=== PATIENT | female | born 1960 | race Caucasian/White ===

== ENCOUNTER 2016-08-28 07:30 | Inpatient (IN) | payer BC ==
[~2016-08-28 07:30] MED LIST: Acetaminophen/oxyCODONE 325-5 MG Tab PO PRN; Bisacodyl 5 MG Tab PO PRN; Lidocaine 1%/Sod Bicarbonate in NS 8.4% 1 ML Syringe IV PRN; Ondansetron 4 MG/2 ML SDV IVPUSH PRN; Sodium Chloride 0.9% 10 ML Syringe FLUSH PRN
[2016-08-28] MEDS ORDERED: Ropivacaine 0.5% 5 MG/ML 30 ML SDV ONE (11:15)
[2016-08-28] MEDS ORDERED: Lidocaine 1% 2 ML ONE (11:15)
[2016-08-28] MEDS ORDERED: EPINEPHrine 1:1000 1 MG/ML SDV ONE (11:15)
[2016-08-28] MEDS: Lactated Ringers 1,000 ML IV SCH ×2 (12:15→14:50)
[2016-08-28] MEDS ORDERED: Citric Acid/Sodium Citrate Solution 30 ML Cup PO ONE (12:17)
[2016-08-28] MEDS ORDERED: Vancomycin 1 GM SDV ONE (12:49)
[2016-08-28] MEDS ORDERED: Midazolam 1 MG/ML 2 ML SDV ONE ×2 (12:57→14:46)
[2016-08-28] MEDS ORDERED: Propofol 200 MG/20 ML SDV ONE (12:57)
[2016-08-28] MEDS ORDERED: fentaNYL 100 MCG/2 ML SDV ONE ×3 (12:57→16:52)
--- NOTE | 2016-08-28 12:57 | PCM.PREANE ---
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 OB/BYN History: Vaginal delivery x 2 Musculoskeletal History: Reports: None Neurological History: Reports: Vertigo (vestibular) Psychiatric History: Reports: None Endocrine/Metabolic History: Reports: None Hematologic History: Reports: None Immunologic History: Reports: None Oncologic (Cancer) History: Reports: None Dermatologic History: Reports: None - Infectious Disease History Infectious Disease History: Reports: None - Past Surgical History HEENT Surgical History: Reports: Other (see below) Other HEENT Surgeries/Procedures: [place] teeth extraction Cardiovascular Surgical History: Reports: None Respiratory Surgical History: Reports: None GI Surgical History: Reports: None Female Surgical History: Reports: None Endocrine Surgical History: Reports: None Neurological Surgical History: Reports: None Musculoskeletal Surgical History: Reports: None Oncologic Surgical History: Reports: None - SUBSTANCE USE Smoking Status *Q: Former Smoker (0.5ppd 30 years) Tobacco Use Within Last Twelve Months: Cigarettes (quit 6 weeks ago) Second Hand Smoke Exposure: No Days Per Week of Alcohol Use: 0 Recreational Drug Use History: No - HOME MEDS Home Medications: Home Meds Multivitamin [Multivitamins] 1 tab PO DAILY 09/18/15 [History] Cholecalciferol (Vitamin D3) [Vitamin D3] 2,000 unit PO DAILY 08/25/16 [History] L.acidoph,Paracasei, B.lactis [Probiotic] 1 tab PO 08/25/16 [History] Vitamin B Complex [B Complex] 1 tab PO DAILY 08/25/16 [History] - CURRENT (IN HOUSE) MEDS Current Meds: Current Medications Aspirin (Ecotrin) 325 mg PO DAILY [facility] Bisacodyl (Dulcolax) 5 mg PO DAILY PRN PRN Reason: Constipation Docusate Sodium (Colace) 100 mg PO BID [facility] Famotidine (Pepcid) 20 mg IVPUSH Q12H [facility] [place] Lactated Ringer's (Ringers, Lactated) 1,000 mls @ 125 mls/hr IV ASDIRECTED [facility] [place] Last Admin: 08/28/16 12:15 Dose: 125 mls/hr Lidocaine/Sodium Bicarbonate (Buffered Lidocaine 1% In Ns 8.4%) 0.25 ml IV ONETIME PRN PRN Reason: Prior to IV Start Last Admin: 08/28/16 12:14 Dose: 0.25 ml Magnesium Hydroxide (Milk Of Magnesia) 30 ml PO BID PRN PRN Reason: Constipation Morphine Sulfate (Morphine) 2 mg IVPUSH Q2H PRN PRN Reason: Breakthrough Pain Multivitamins (Thera) 1 each PO WITHBREAKFAST [facility] [place] Naloxone HCl (Narcan) 0.1 mg IVPUSH Q5M PRN PRN Reason: Oversedation Stop: 08/28/16 15:16 Ondansetron HCl (Zofran) 4 mg IVPUSH Q6H PRN PRN Reason: Nausea/Vomiting Oxycodone/Acetaminophen (Percocet 325-5 Mg) 1 - 2 tab PO Q4H PRN PRN Reason: Pain Senna (Senna) 8.6 mg PO BID PRN PRN Reason: Constipation Sodium Chloride (Saline Flush) 10 ml FLUSH ASDIRECTED PRN PRN Reason: Keep Vein Open Discontinued Medications Citric Acid/Sodium Citrate (Bicitra Solution) 30 ml PO ONETIME ONE Stop: 08/28/16 12:18 Last Admin: 08/28/16 12:32 Dose: 30 ml Epinephrine HCl (Adrenalin 1:1000) Confirm Administered Dose 1 mg .ROUTE .STK- MED ONE Stop: 08/28/16 11:16 Lidocaine HCl (Xylocaine-Mpf 1%) Confirm Administered Dose 2 mls @ as directed .ROUTE .STK-MED ONE Stop: 08/28/16 11:16 Ropivacaine (Naropin 0.5%) Confirm Administered Dose 30 ml .ROUTE .STK-MED ONE Stop: 08/28/16 11:16 Preanesthetic Assessment - ANESTHESIA/TRANSFUSION/FAMILY HX Anesthesia/Transfusion History: No Prior Transfusion(s), Prior Anesthesia ( wisdom teeth extraction ) Type of Anesthesia Reaction: Reports: Unknown Family History of Anesthesia Reaction: Yes Intubation History: Unknown Type of Transfusion Reactions: Reports: Unknown - REVIEW OF SYSTEMS Constitutional: Reports: no symptoms (seasonal sinus allergies ) 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 symptoms (vertibular vertigo ) Respiratory: Reports: shortness of breath (due to allergies ) Cardiovascular: Reports: no symptoms GI: Reports: no symptoms (GERD), nausea (throughout the last year correlated with acid reflux) Other: Reports: None, Depression (not currently medicated ), Anxiety - PHYSICAL ASSESSMENT HR: 71 O2 Sat by Pulse Oximetry: 94 RR: 16 BP: 118/82 Temp: 36.8 C Height: 1.55 m Weight: 81.647 kg NPO Status Date: 08/27/16 NPO Status Time: 20:00 ASA Class: 2 Mental Status: Alert & Oriented x3 Airway Class: Mallampati = 2 Dentition: Reports: Normal Dentition Thyro-Mental Finger Breadths: 3 Mouth Opening Finger Breadths: 3 ROM/Head Extension: Limited/Partial (due to vestibular vertigo issues) Respiratory Status: lungs clear to auscultation bilaterally Cardiovascular Status: regular rate & rhythm, normal S1, S2, no murmur, blood pressure WNL - ALLERGIES Allergies/Adverse Reactions: Allergies Allergy/AdvReac Type Severity Reaction Status Date / Time latex Allergy Other Verified 08/25/16 12:46 Penicillins Allergy Rash Verified 08/25/16 12:46 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
[2016-08-28] MEDS ORDERED: Lidocaine 1% 4 ML ONE (12:58)
[2016-08-28] MEDS ORDERED: Rocuronium 50 MG/5 ML Vial ONE (12:58)
[2016-08-28] MEDS ORDERED: Dexamethasone 4 MG/ML SDV ONE (12:58)
[2016-08-28] MEDS ORDERED: Ondansetron 4 MG/2 ML SDV ONE (12:58)
[2016-08-28] MEDS ORDERED: ceFAZolin 1 GM Vial ONE (13:28)
[2016-08-28] MEDS ORDERED: Scopolamine 1.5 MG Transdermal Patch TRDERM ONE (13:31)
[2016-08-28] MEDS ORDERED: Naloxone 0.4 MG/ML SDV IVPUSH PRN (15:00)
--- NOTE | 2016-08-28 15:13 | PCM.SN ---
- Free Text/Narrative Note: Date: 08/28/2016 Time Out: 1410 Start: 1410 Stop: 1442 Surgical Procedure: Left Total Shoulder Arthroplasty, vs, Left Reverse Total Shoulder Arthroplasty Diagnosis: Left shoulder Osteoarthritis Current Procedure: Left Interscalene Block under US guidance for postoperative pain control requested by Dr. Pozo. Patient chart reviewed, risk/benefits discussed with patient, consent obtained. Patient positioned supine, monitors/alarms on, oxygen placed via nasal cannula at 2LPM. IV sedation administered: Versed 2mg IV @ 1340, 1mg versed at 1437. Fentanyl 50mcg IV @ 1410, 1432, 1438. Left shoulder prepped with two chloropreps. Sterile drapes placed with aseptic technique noted. Under US guidance(sterile US sleeve noted) left subclavian artery visualized along with the left brachial plexus. Plexus followed up to cricoid level, and area localized with 2mls of 1% lidocaine. 22gauge 2 inch stimiplex needle advanced under US with 0.8mV with stimulation of left forearm noted. Voltage turned down to 0.4mV with stimulation noted. 1ml of Normal Saline injected with loss of stimulation noted to confirm needle not placed intraneurally. Incremental dosing of 5mls with negative aspiration noted prior to each injection of 0.5% ropivacaine with 1:200,000 epinephrine. Total volume=30mls. QV9099/1440: 71, 64 NW6017/1440: 125/89, 117/67 1442: 95/59, 80, 16, 96% RR: 1410/1440: 16, 11 SPO2:1410/1440:100%, 98% Patient tolerated procedure well.
[2016-08-28] MEDS ORDERED: LORazepam 2 MG/ML MDV IVPUSH ONE (15:40)
[2016-08-28] MEDS ORDERED: Meperidine PF 50 MG/ML Syringe IVPUSH PRN (15:41)
[2016-08-28] MEDS ORDERED: Ondansetron 4 MG/2 ML SDV IVPUSH PRN (15:41)
[2016-08-28] MEDS ORDERED: fentaNYL 100 MCG/2 ML SDV IVPUSH PRN (15:41)
[2016-08-28] MEDS ORDERED: diphenhydrAMINE 50 MG/ML SDV IVPUSH PRN (15:41)
[2016-08-28] MEDS ORDERED: Phenylephrine/Normal Saline 100 MCG/ML 10 ML Syringe ONE ×2 (17:29→18:45)
[2016-08-28] MEDS ORDERED: Neostigmine Methylsulfate 1 MG/ML 5 ML Syringe ONE (17:29)
[2016-08-28] MEDS ORDERED: ePHEDrine/Normal Saline 25 MG/5 ML Syringe ONE ×2 (17:29→18:11)
[2016-08-28] MEDS: Bupivacaine 0.25% 30 ML SDV ONE ×2 (17:45→19:00)
[2016-08-28] MEDS: ceFAZolin 1 GM Vial ONE ×2 (17:45→18:46)
[2016-08-28] MEDS: Iodine/Sodium Iodide 2% Tincture 30 ML Bottle ONE ×2 (17:46→18:45)
[2016-08-28] MEDS ORDERED: Ketamine 500 mg/10 ML MDV ONE (17:55)
[2016-08-28] MEDS ORDERED: Lactated Ringers 1,000 ML ONE ×2 (18:30)
--- NOTE | 2016-08-28 19:51 | PCM.POSTAN ---
POST ANESTHESIA ASSESSMENT - MENTAL STATUS Mental Status: other (drowsy ) - VITAL SIGNS Pulse Rate: 93 SaO2: 95 Resp Rate: 13 Blood Pressure: 139/77 Temperature: 36.8 C - RESPIRATORY Respiratory Status: respiratory rate WNL, airway patent, O2 saturation stable - CARDIOVASCULAR CV Status: pulse rate WNL, blood pressure stable - GASTROINTESTINAL GI Status: no symptoms - PAIN Pain Score: 0 - POST OP HYDRATION Hydration Status: adequate & stable (uneventful GA with interscalene block for postoperative pain control )
--- NOTE | 2016-08-28 20:36 | CR ---
Left shoulder: Portable view of the left shoulder was obtained in AP projection. Comparison: Previous operative study performed earlier on the same day. Left shoulder prosthesis is seen. Components are aligned. Underlying bony structures appear intact. Soft tissue air is noted from the surgical procedure. Impression: 1. Satisfactory postop radiographic appearance of recently placed left shoulder prosthesis. Diagnostic code #2
[2016-08-28] MEDS ORDERED: Magnesium Hydroxide 400 MG/5 ML Susp 30 ML Cup PO PRN (21:00)
[2016-08-28] MEDS ORDERED: Sennosides 8.6 MG Tab PO PRN (21:00)
[2016-08-28] MEDS ORDERED: Famotidine 20 MG/2 ML SDV IVPUSH SCH (21:00)
[2016-08-28] MEDS ORDERED: Pneumococcal Polyvalent-23 Vaccine 0.5 ML SDV IM ONE (21:49)
[2016-08-29] MEDS: Docusate Sodium 100 MG Cap PO SCH ×2 (01:35→08:35)
[2016-08-29] MEDS: Morphine 2 MG/ML Syringe IVPUSH PRN ×3 (02:35→10:53)
[2016-08-29] MEDS: ceFAZolin 2 GM in Premix Bag 1 BAG IV SCH ×2 (02:35→09:55)
[2016-08-29] MEDS ORDERED: Cyclobenzaprine 10 MG Tab PO PRN (05:07)
[2016-08-29] MEDS: Pantoprazole 40 MG Tab.CR PO SCH ×2 (05:52→06:46)
[2016-08-29] MEDS: oxyCODONE 5 MG Tab PO PRN ×2 (05:52→16:04)
[2016-08-29] MEDS ORDERED: Multivitamins,Therapeutic Tab PO SCH (07:00)
--- NOTE | 2016-08-29 07:09 | PCM.CONSN ---
- General Info Date of Service: 08/29/16 Admission Dx/Problem (Free Text): S/P Lt total shoulder with Dr. Pozo Pain control better after switching to dilaudid po from percocet po; no n/v Hgb 12.3 today, other labs stable VSS Plans dc home today Functional Status: Reports: pain controlled, tolerating diet, ambulating, urinating. Denies: new symptoms - Review of Systems General: Reports: No Symptoms HEENT: Reports: no symptoms Pulmonary: Reports: no symptoms Cardiovascular: Reports: No Symptoms Gastrointestinal: Reports: No symptoms Genitourinary: Reports: no symptoms Musculoskeletal: Reports: shoulder pain Skin: Reports: no symptoms Neurological: Reports: No Symptoms Psychiatric: Reports: no symptoms - Patient Data Vitals - most recent: Last Vital Signs Temp 97.7 F 08/29/16 03:59 Pulse 75 08/29/16 03:59 Resp 16 08/29/16 03:59 BP 105/86 08/29/16 03:59 Pulse Ox 98 08/29/16 03:59 Weight - most recent: 166 lb 11.2 oz I&O - last 24 hours: Intake & Output 08/28/16 08/29/16 08/29/16 22:59 06:59 14:59 Intake Total 400 500 Output Total 1250 Balance 400 -750 Lab Results last 24 hrs: Laboratory Results - last 24 hr 08/29/16 08/29/16 Range/Units 06:14 06:14 WBC 9.97 (3.98-10.04) K/mm3 RBC 4.17 (3.98-5.22) M/mm3 Hgb 12.3 (11.2-15.7) gm/L Hct 37.5 (34.1-44.9) % MCV 89.9 (79.4-94.8) fl MCH 29.5 (25.6-32.2) pg MCHC 32.8 (32.2-35.5) g/dl RDW Std Deviation 44.5 (36.4-46.3) fL Plt Count 152 L (182-369) K/mm3 MPV 11.0 (9.4-12.3) fl Neut % (Auto) 72.7 H (34.0-71.1) % Lymph % (Auto) 15.2 L (19.3-51.7) % [place] % (Auto) 9.2 (4.7-12.5) % Eos % (Auto) 2.5 (0.7-5.8) Baso % (Auto) 0.1 (0.1-1.2) % Neut # (Auto) 7.24 H (1.56-6.13) K/mm3 Lymph # (Auto) 1.52 (1.18-3.74) K/mm3 [place] # (Auto) 0.92 H (0.24-0.36) K/mm3 Eos # (Auto) 0.25 (0.04-0.36) K/mm3 Baso # (Auto) 0.01 (0.01-0.08) K/mm3 Sodium 140 (136-145) mEq/L Potassium 4.5 (3.5-5.1) mEq/L Chloride 106 (98-107) mEq/L Carbon Dioxide 27 (21-32) mEq/L Anion Gap 11.5 (5-15) BUN 10 (7-18) mg/dL Creatinine 0.9 (0.55-1.02) mg/dL Est Cr Clr Drug Dosing 52.04 mL/min Estimated GFR (MDRD) > 60 (>60) mL/min BUN/Creatinine Ratio 11.1 L (14-18) Glucose 136 H (74-106) mg/dL Calcium 8.7 (8.5-10.1) mg/dL Total Bilirubin 0.3 (0.2-1.0) mg/dL AST 23 (15-37) U/L ALT 27 (14-59) U/L Alkaline Phosphatase 85 (46-116) U/L Total Protein 6.5 (6.4-8.2) g/dl Albumin 3.3 L (3.4-5.0) g/dl Globulin 3.2 gm/dL Albumin/Globulin Ratio 1.0 (1-2) Med Orders - Current: Current Medications Aspirin (Ecotrin) 325 mg PO DAILY [facility] Bisacodyl (Dulcolax) 5 mg PO DAILY PRN PRN Reason: Constipation Cholecalciferol (Vitamin D3) 2,000 units PO DAILY [facility] Cyclobenzaprine HCl (Flexeril) 10 mg PO Q8HR PRN PRN Reason: Spasms Last Admin: 08/29/16 05:52 Dose: 10 mg Docusate Sodium (Colace) 100 mg PO BID [facility] Last Admin: 08/29/16 01:35 Dose: Not Given Famotidine (Pepcid) 20 mg IVPUSH Q12H [facility] Last Admin: 08/28/16 22:32 Dose: 20 mg Cefazolin Sodium/Dextrose 2 gm (/ Premix) 50 mls @ 100 mls/hr IV Q8H [facility] Stop: 08/29/16 18:29 Last Admin: 08/29/16 02:35 Dose: 100 mls/hr Magnesium Hydroxide (Milk Of Magnesia) 30 ml PO BID PRN PRN Reason: Constipation Morphine Sulfate (Morphine) 2 mg IVPUSH Q2H PRN PRN Reason: Breakthrough Pain Last Admin: 08/29/16 04:32 Dose: 2 mg Ondansetron HCl (Zofran) 4 mg IVPUSH Q6H PRN PRN Reason: Nausea/Vomiting Oxycodone HCl (Oxycodone) 5 mg PO Q6H PRN PRN Reason: Pain Last Admin: 08/29/16 05:52 Dose: 5 mg Oxycodone/Acetaminophen (Percocet 325-5 Mg) 1 - 2 tab PO Q4H PRN PRN Reason: Pain Last Admin: 08/29/16 03:06 Dose: 2 tab Pantoprazole Sodium (Protonix) 40 mg PO DAILY@0700 [facility] Last Admin: 08/29/16 06:46 Dose: Not Given Saccharomyces Boulardii (Florastor) 250 mg PO DAILY [facility] Senna (Senna) 8.6 mg PO BID PRN PRN Reason: Constipation Vitamin B Complex/Vitamin C (Super B With Vitamin C) 1 cap PO DAILY [facility] Discontinued Medications Bupivacaine HCl (Marcaine 0.25%) Confirm Administered Dose 30 ml .ROUTE .STK- MED ONE Stop: 08/28/16 12:51 Last Admin: 08/28/16 19:00 Dose: 20 ml Cefazolin Sodium (Ancef) Confirm Administered Dose 2 gm .ROUTE .STK-MED ONE Stop: 08/28/16 12:51 Last Admin: 08/28/16 18:46 Dose: 2 gm Cefazolin Sodium (Ancef) Confirm Administered Dose 2 gm .ROUTE .STK-MED ONE Stop: 08/28/16 13:29 Citric Acid/Sodium Citrate (Bicitra Solution) 30 ml PO ONETIME ONE Stop: 08/28/16 12:18 Last Admin: 08/28/16 12:32 Dose: 30 ml Dexamethasone (Dexamethasone) Confirm Administered Dose 4 mg .ROUTE .STK-MED ONE Stop: 08/28/16 12:59 Diphenhydramine HCl (Benadryl) 25 mg IVPUSH Q6H PRN PRN Reason: pruritis Stop: 08/28/16 18:00 Ephedrine Sulfate (Ephedrine In Ns) Confirm Administered Dose 25 mg .ROUTE .STK- MED ONE Stop: 08/28/16 17:30 Ephedrine Sulfate (Ephedrine In Ns) Confirm Administered Dose 25 mg .ROUTE .STK- MED ONE Stop: 08/28/16 18:12 Epinephrine HCl (Adrenalin 1:1000) Confirm Administered Dose 1 mg .ROUTE .STK- MED ONE Stop: 08/28/16 11:16 Fentanyl (Sublimaze) Confirm Administered Dose 100 mcg .ROUTE .STK-MED ONE Stop: 08/28/16 12:58 Fentanyl (Sublimaze) Confirm Administered Dose 100 mcg .ROUTE .STK-MED ONE Stop: 08/28/16 14:47 Fentanyl (Sublimaze) 50 mcg IVPUSH Q5M PRN PRN Reason: Pain Stop: 08/28/16 18:00 Fentanyl (Sublimaze) Confirm Administered Dose 100 mcg .ROUTE .STK-MED ONE Stop: 08/28/16 16:53 Glycopyrrolate () Confirm Administered Dose 1 mg .ROUTE .STK-MED ONE Stop: 08/28/16 17:30 Lactated Ringer's (Ringers, Lactated) 1,000 mls @ 125 mls/hr IV ASDIRECTED [facility] Stop: 08/28/16 23:00 Last Admin: 08/28/16 14:50 Dose: 125 mls/hr Lidocaine HCl (Xylocaine-Mpf 1%) Confirm Administered Dose 2 mls @ as directed .ROUTE .STK-MED ONE Stop: 08/28/16 11:16 Lidocaine HCl (Xylocaine-Mpf 1%) Confirm Administered Dose 4 mls @ as directed .ROUTE .STK-MED ONE Stop: 08/28/16 12:59 Lactated Ringer's (Ringers, Lactated) Confirm Administered Dose 1,000 mls @ as directed .ROUTE .STK-MED ONE Stop: 08/28/16 18:31 Lactated Ringer's (Ringers, Lactated) Confirm Administered Dose 1,000 mls @ as directed .ROUTE .STK-MED ONE Stop: 08/28/16 18:31 Iodine (Iodine 2% Mild Tincture) Confirm Administered Dose 30 ml .ROUTE .STK- MED ONE Stop: 08/28/16 12:51 Last Admin: 08/28/16 18:45 Dose: 18 ml Ketamine HCl (Ketalar) Confirm Administered Dose 500 mg .ROUTE .STK-MED ONE Stop: 08/28/16 17:56 Lidocaine/Sodium Bicarbonate (Buffered Lidocaine 1% In Ns 8.4%) 0.25 ml IV ONETIME PRN PRN Reason: Prior to IV Start Stop: 08/28/16 18:00 Last Admin: 08/28/16 12:14 Dose: 0.25 ml Lorazepam (Ativan) 1 mg IVPUSH ONETIME ONE Stop: 08/28/16 15:41 Last Admin: 08/28/16 22:50 Dose: Not Given Meperidine HCl (Demerol) 12.5 mg IVPUSH ONETIME PRN PRN Reason: shivering Stop: 08/28/16 18:00 Midazolam HCl (Versed 1 Mg/Ml) Confirm Administered Dose 2 mg .ROUTE .STK-MED ONE Stop: 08/28/16 12:58 Midazolam HCl (Versed 1 Mg/Ml) Confirm Administered Dose 2 mg .ROUTE .STK-MED ONE Stop: 08/28/16 14:47 Multivitamins (Thera) 1 each PO WITHBREAKFAST [facility] Naloxone HCl (Narcan) 0.1 mg IVPUSH Q5M PRN PRN Reason: Oversedation Stop: 08/28/16 15:16 Neostigmine Methylsulfate (Neostigmine) Confirm Administered Dose 5 mg .ROUTE .STK-MED ONE Stop: 08/28/16 17:30 Non-Formulary Medication (Multivitamin [Multivitamins]) 1 tab PO DAILY [facility] Ondansetron HCl (Zofran) Confirm Administered Dose 4 mg .ROUTE .STK-MED ONE Stop: 08/28/16 12:59 Ondansetron HCl (Zofran) 4 mg IVPUSH ONETIME PRN PRN Reason: Nausea/Vomiting Stop: 08/28/16 18:00 Last Admin: 08/28/16 20:01 Dose: 4 mg Phenylephrine HCl (Phenylephrine In Ns 100 Mcg/Ml) Confirm Administered Dose 1 mg .ROUTE .STK-MED ONE Stop: 08/28/16 17:30 Phenylephrine HCl (Phenylephrine In Ns 100 Mcg/Ml) Confirm Administered Dose 1 mg .ROUTE .STK-MED ONE Stop: 08/28/16 18:46 Pneumococcal Polyvalent Vaccine (Pneumovax 23) 0.5 ml IM .ONCE ONE Stop: 08/28/16 21:50 Propofol (Diprivan 20 Ml) Confirm Administered Dose 200 mg .ROUTE .STK-MED ONE Stop: 08/28/16 12:58 Rocuronium [place] (Zemuron) Confirm Administered Dose 50 mg .ROUTE .STK-MED ONE Stop: 08/28/16 12:59 Ropivacaine (Naropin 0.5%) Confirm Administered Dose 30 ml .ROUTE .STK-MED ONE Stop: 08/28/16 11:16 Scopolamine (Transderm-Scop) 1.5 mg TRDERM ONETIME ONE Stop: 08/28/16 13:32 Last Admin: 08/28/16 14:59 Dose: 1.5 mg Sodium Chloride (Saline Flush) 10 ml FLUSH ASDIRECTED PRN PRN Reason: Keep Vein Open Stop: 08/28/16 18:00 Tranexamic Acid (Cyklokapron) Confirm Administered Dose 1,000 mg .ROUTE .STK- MED ONE Stop: 08/28/16 12:50 Last Admin: 08/28/16 19:05 Dose: 1,000 mg Vancomycin HCl (Vancomycin) Confirm Administered Dose 1 gm .ROUTE .STK-MED ONE Stop: 08/28/16 12:50 - Exam Quality Assessment: DVT prophylaxis General: alert, oriented, cooperative, no acute distress HEENT: Pupils equal, Pupils reactive, EOMI, Mucous membr. moist/pink Neck: supple Lungs: Clear to auscultation, Normal respiratory effort Cardiovascular: Regular Rate, Regular Rhythm Abdomen: bowel sounds present, soft, no tenderness, no distension (Female) Exam: Deferred Extremities: no edema Peripheral Pulses: 2+: radial (L), radial (R) Skin: warm, dry Neurological: no new focal deficit Psy/Mental Status: alert, normal affect, normal mood Consult PN Assessment/Plan POD#: 1 Procedures: Procedures ASSAY OF AMYLASE (09/18/15) ASSAY OF LIPASE (09/18/15) ASSAY OF TROPONIN QUANT (09/18/15) COMPLETE CBC W/AUTO DIFF WBC (09/18/15) COMPREHEN METABOLIC PANEL (09/18/15) DXA BONE DENSITY AXIAL (06/22/16) EMERGENCY DEPT VISIT (09/18/15) HYDRATE IV INFUSION ADD-ON (09/18/15) MR-STAPH DNA AMP PROBE (08/14/16) ROUTINE VENIPUNCTURE (09/18/15) THER/PROPH/DIAG INJ IV PUSH (09/18/15) TX/PRO/DX INJ NEW DRUG ADDON (09/18/15) TX/PRO/DX INJ SAME DRUG PROPERTY PORTFOLIO OFFICER (09/18/15) URINALYSIS AUTO W/SCOPE (11/03/14) URINE CULTURE/COLONY COUNT (10/27/14) X-RAY EXAM L-S SPINE 2/3 VWS (11/03/14) X-RAY EXAM OF ABDOMEN (09/18/15) (1) Status post total shoulder arthroplasty SNOMED Code(s): 632764582, 388383456 Code(s): Z96.619 - PRESENCE OF UNSPECIFIED ARTIFICIAL SHOULDER JOINT Priority: High Current Visit: Yes Qualifiers: Laterality: left Qualified Code(s): Z96.612 - Presence of left artificial shoulder joint (2) Osteoarthritis SNOMED Code(s): 453599904 Code(s): M19.90 - UNSPECIFIED OSTEOARTHRITIS, UNSPECIFIED SITE Priority: High Current Visit: Yes Qualifiers: Osteoarthritis location: shoulder Osteoarthritis type: primary Laterality : left Qualified Code(s): M19.012 - Primary osteoarthritis, left shoulder Problem List Initiated/Reviewed/Updated: Yes Plan: POD #1 Lt Total Shoulder Arthroplasty -Pain managment and DVT prophylax per primary team/Ortho -PT/OT -Doing well thus far -Hgb 12.3 this am Other chronic conditions: Hx GERD and Vertigo- home meds of vitamins only- can continue these at home GI prophylax Plans for DC home today; ok from Hospitalist standpoint for dc home today.
[2016-08-29] MEDS ORDERED: HYDROmorphone 2 MG Tab PO ONE (07:30)
[2016-08-29] MEDS ORDERED: Diphtheria,Pertussis(Acell),Tetanus Vaccine 0.5 ML SDV inactive IM ONE (07:55)
[2016-08-29] MEDS ORDERED: Non-Formulary Medication 1 Each (Multivitamin [Multivitamins] 1 TAB) PO SCH (09:00)
[2016-08-29] MEDS ORDERED: Vitamin B Complex With Vitamin C Cap PO SCH (09:00)
[2016-08-29] MEDS ORDERED: Saccharomyces Boulardii (Probiotic) 250 MG Cap PO SCH (09:00)
[2016-08-29] MEDS ORDERED: Cholecalciferol (Vitamin D3) 1,000 Unit Tab PO SCH (09:00)
[2016-08-29] MEDS ORDERED: Aspirin 325 MG Tab.EC PO SCH (09:00)
--- NOTE | 2016-08-29 09:35 | PCM48HPAN ---
Post Anesthesia Note - EVALUATION WITHIN 48HRS OF ANESTHETIC Vital Signs in Normal Range: Yes Patient Participated in Evaluation: Yes Respiratory Function Stable: Yes Airway Patent: Yes Cardiovascular Function Stable: Yes Hydration Status Stable: Yes Pain Control Satisfactory: No (Pt reports block worked well. (con't below)) Nausea and Vomiting Control Satisfactory: Yes Mental Status Recovered: Yes - COMMENTS/OBSERVATIONS Free Text/Narrative:: pt reports that post-op pain regimen after block wore off was inadequate, but new regimen started this am. no fever,chills, nausea, vomiting. reports taking po well, using restroom without problems
--- NOTE | 2016-08-29 10:00 | CR ---
Left shoulder: Multiple fluoroscopic spot views were obtained utilizing C-arm device. Study shows placement of left shoulder prosthesis. Final film shows normal alignment of the prosthesis. Underlying bony structures are intact. Fluoroscopy time given as 7.3 seconds. Impression: 1. Operative study showing left shoulder prosthesis placement. Diagnostic code #2
[2016-08-29] MEDS ORDERED: HYDROmorphone 2 MG Tab PO PRN (12:23)
--- NOTE | 2016-08-29 13:24 | PCM.SURGPN ---
- General Info Date of Service: 08/29/16 POD#: 1 Functional Status: Reports: pain controlled, tolerating diet, ambulating, urinating, other (The pt reports improved pain control with Dilaudid.). Denies : new symptoms - Review of Systems Musculoskeletal: Reports: other (The pt feels prepared for discharge.) - Patient Data Vitals - most recent: Last Vital Signs Temp 98.1 F 08/29/16 12:25 Pulse 77 08/29/16 12:25 Resp 16 08/29/16 12:25 BP 101/74 08/29/16 12:25 Pulse Ox 93 L 08/29/16 12:25 Weight - most recent: 166 lb 11.2 oz I&O - last 24 hours: Intake & Output 08/28/16 08/29/16 08/29/16 22:59 06:59 14:59 Intake Total 400 500 Output Total 1250 Balance 400 -750 Lab Results last 24 hrs: Laboratory Results - last 24 hr 08/29/16 08/29/16 Range/Units 06:14 06:14 WBC 9.97 (3.98-10.04) K/mm3 RBC 4.17 (3.98-5.22) M/mm3 Hgb 12.3 (11.2-15.7) gm/L Hct 37.5 (34.1-44.9) % MCV 89.9 (79.4-94.8) fl MCH 29.5 (25.6-32.2) pg MCHC 32.8 (32.2-35.5) g/dl RDW Std Deviation 44.5 (36.4-46.3) fL Plt Count 152 L (182-369) K/mm3 MPV 11.0 (9.4-12.3) fl Neut % (Auto) 72.7 H (34.0-71.1) % Lymph % (Auto) 15.2 L (19.3-51.7) % Wolfe % (Auto) 9.2 (4.7-12.5) % Eos % (Auto) 2.5 (0.7-5.8) Baso % (Auto) 0.1 (0.1-1.2) % Neut # (Auto) 7.24 H (1.56-6.13) K/mm3 Lymph # (Auto) 1.52 (1.18-3.74) K/mm3 Wolfe # (Auto) 0.92 H (0.24-0.36) K/mm3 Eos # (Auto) 0.25 (0.04-0.36) K/mm3 Baso # (Auto) 0.01 (0.01-0.08) K/mm3 Sodium 140 (136-145) mEq/L Potassium 4.5 (3.5-5.1) mEq/L Chloride 106 (98-107) mEq/L Carbon Dioxide 27 (21-32) mEq/L Anion Gap 11.5 (5-15) BUN 10 (7-18) mg/dL Creatinine 0.9 (0.55-1.02) mg/dL Est Cr Clr Drug Dosing 52.04 mL/min Estimated GFR (MDRD) > 60 (>60) mL/min BUN/Creatinine Ratio 11.1 L (14-18) Glucose 136 H (74-106) mg/dL Calcium 8.7 (8.5-10.1) mg/dL Total Bilirubin 0.3 (0.2-1.0) mg/dL AST 23 (15-37) U/L ALT 27 (14-59) U/L Alkaline Phosphatase 85 (46-116) U/L Total Protein 6.5 (6.4-8.2) g/dl Albumin 3.3 L (3.4-5.0) g/dl Globulin 3.2 gm/dL Albumin/Globulin Ratio 1.0 (1-2) Med Orders - Current: Current Medications Aspirin (Ecotrin) 325 mg PO DAILY [facility] Last Admin: 08/29/16 08:35 Dose: 325 mg Bisacodyl (Dulcolax) 5 mg PO DAILY PRN PRN Reason: Constipation Cholecalciferol (Vitamin D3) 2,000 units PO DAILY [facility] Last Admin: 08/29/16 08:35 Dose: 2,000 units Cyclobenzaprine HCl (Flexeril) 10 mg PO Q8HR PRN PRN Reason: Spasms Last Admin: 08/29/16 05:52 Dose: 10 mg Docusate Sodium (Colace) 100 mg PO BID [facility] Last Admin: 08/29/16 08:35 Dose: 100 mg Hydromorphone HCl (Dilaudid) 2 - 4 mg PO Q4H PRN PRN Reason: Pain (severe 7-10) Last Admin: 08/29/16 12:55 Dose: 4 mg Cefazolin Sodium/Dextrose 2 gm (/ Premix) 50 mls @ 100 mls/hr IV Q8H [facility] Stop: 08/29/16 18:29 Last Admin: 08/29/16 09:55 Dose: 100 mls/hr Magnesium Hydroxide (Milk Of Magnesia) 30 ml PO BID PRN PRN Reason: Constipation Morphine Sulfate (Morphine) 2 mg IVPUSH Q2H PRN PRN Reason: Breakthrough Pain Last Admin: 08/29/16 10:53 Dose: 2 mg Ondansetron HCl (Zofran) 4 mg IVPUSH Q6H PRN PRN Reason: Nausea/Vomiting Oxycodone HCl (Oxycodone) 5 mg PO Q6H PRN PRN Reason: Pain Last Admin: 08/29/16 05:52 Dose: 5 mg Pantoprazole Sodium (Protonix) 40 mg PO DAILY@0700 [facility] Last Admin: 08/29/16 06:46 Dose: Not Given Saccharomyces Boulardii (Florastor) 250 mg PO DAILY [facility] Last Admin: 08/29/16 08:34 Dose: 250 mg Senna (Senna) 8.6 mg PO BID PRN PRN Reason: Constipation Vitamin B Complex/Vitamin C (Super B With Vitamin C) 1 cap PO DAILY [facility] Last Admin: 08/29/16 08:35 Dose: 1 cap Discontinued Medications Bupivacaine HCl (Marcaine 0.25%) Confirm Administered Dose 30 ml .ROUTE .STK- MED ONE Stop: 08/28/16 12:51 Last Admin: 08/28/16 19:00 Dose: 20 ml Cefazolin Sodium (Ancef) Confirm Administered Dose 2 gm .ROUTE .STK-MED ONE Stop: 08/28/16 12:51 Last Admin: 08/28/16 18:46 Dose: 2 gm Cefazolin Sodium (Ancef) Confirm Administered Dose 2 gm .ROUTE .STK-MED ONE Stop: 08/28/16 13:29 Citric Acid/Sodium Citrate (Bicitra Solution) 30 ml PO ONETIME ONE Stop: 08/28/16 12:18 Last Admin: 08/28/16 12:32 Dose: 30 ml Dexamethasone (Dexamethasone) Confirm Administered Dose 4 mg .ROUTE .STK-MED ONE Stop: 08/28/16 12:59 Diphenhydramine HCl (Benadryl) 25 mg IVPUSH Q6H PRN PRN Reason: pruritis Stop: 08/28/16 18:00 Diphtheria/Tetanus/Acell Pertussis (Boostrix) 0.5 ml IM .ONCE ONE Stop: 08/29/16 07:56 Ephedrine Sulfate (Ephedrine In Ns) Confirm Administered Dose 25 mg .ROUTE .STK- MED ONE Stop: 08/28/16 17:30 Ephedrine Sulfate (Ephedrine In Ns) Confirm Administered Dose 25 mg .ROUTE .STK- MED ONE Stop: 08/28/16 18:12 Epinephrine HCl (Adrenalin 1:1000) Confirm Administered Dose 1 mg .ROUTE .STK- MED ONE Stop: 08/28/16 11:16 Famotidine (Pepcid) 20 mg IVPUSH Q12H [facility] Last Admin: 08/28/16 22:32 Dose: 20 mg Fentanyl (Sublimaze) Confirm Administered Dose 100 mcg .ROUTE .STK-MED ONE Stop: 08/28/16 12:58 Fentanyl (Sublimaze) Confirm Administered Dose 100 mcg .ROUTE .STK-MED ONE Stop: 08/28/16 14:47 Fentanyl (Sublimaze) 50 mcg IVPUSH Q5M PRN PRN Reason: Pain Stop: 08/28/16 18:00 Fentanyl (Sublimaze) Confirm Administered Dose 100 mcg .ROUTE .STK-MED ONE Stop: 08/28/16 16:53 Glycopyrrolate () Confirm Administered Dose 1 mg .ROUTE .STK-MED ONE Stop: 08/28/16 17:30 Hydromorphone HCl (Dilaudid) 2 mg PO ONETIME ONE Stop: 08/29/16 07:31 Last Admin: 08/29/16 07:41 Dose: 2 mg Lactated Ringer's (Ringers, Lactated) 1,000 mls @ 125 mls/hr IV ASDIRECTED [facility] Stop: 08/28/16 23:00 Last Admin: 08/28/16 14:50 Dose: 125 mls/hr Lidocaine HCl (Xylocaine-Mpf 1%) Confirm Administered Dose 2 mls @ as directed .ROUTE .STK-MED ONE Stop: 08/28/16 11:16 Lidocaine HCl (Xylocaine-Mpf 1%) Confirm Administered Dose 4 mls @ as directed .ROUTE .STK-MED ONE Stop: 08/28/16 12:59 Lactated Ringer's (Ringers, Lactated) Confirm Administered Dose 1,000 mls @ as directed .ROUTE .STK-MED ONE Stop: 08/28/16 18:31 Lactated Ringer's (Ringers, Lactated) Confirm Administered Dose 1,000 mls @ as directed .ROUTE .STK-MED ONE Stop: 08/28/16 18:31 Iodine (Iodine 2% Mild Tincture) Confirm Administered Dose 30 ml .ROUTE .STK- MED ONE Stop: 08/28/16 12:51 Last Admin: 08/28/16 18:45 Dose: 18 ml Ketamine HCl (Ketalar) Confirm Administered Dose 500 mg .ROUTE .STK-MED ONE Stop: 08/28/16 17:56 Lidocaine/Sodium Bicarbonate (Buffered Lidocaine 1% In Ns 8.4%) 0.25 ml IV ONETIME PRN PRN Reason: Prior to IV Start Stop: 08/28/16 18:00 Last Admin: 08/28/16 12:14 Dose: 0.25 ml Lorazepam (Ativan) 1 mg IVPUSH ONETIME ONE Stop: 08/28/16 15:41 Last Admin: 08/28/16 22:50 Dose: Not Given Meperidine HCl (Demerol) 12.5 mg IVPUSH ONETIME PRN PRN Reason: shivering Stop: 08/28/16 18:00 Midazolam HCl (Versed 1 Mg/Ml) Confirm Administered Dose 2 mg .ROUTE .STK-MED ONE Stop: 08/28/16 12:58 Midazolam HCl (Versed 1 Mg/Ml) Confirm Administered Dose 2 mg .ROUTE .STK-MED ONE Stop: 08/28/16 14:47 Multivitamins (Thera) 1 each PO WITHBREAKFAST [facility] Naloxone HCl (Narcan) 0.1 mg IVPUSH Q5M PRN PRN Reason: Oversedation Stop: 08/28/16 15:16 Neostigmine Methylsulfate (Neostigmine) Confirm Administered Dose 5 mg .ROUTE .STK-MED ONE Stop: 08/28/16 17:30 Non-Formulary Medication (Multivitamin [Multivitamins]) 1 tab PO DAILY [facility] Ondansetron HCl (Zofran) Confirm Administered Dose 4 mg .ROUTE .STK-MED ONE Stop: 08/28/16 12:59 Ondansetron HCl (Zofran) 4 mg IVPUSH ONETIME PRN PRN Reason: Nausea/Vomiting Stop: 08/28/16 18:00 Last Admin: 08/28/16 20:01 Dose: 4 mg Oxycodone/Acetaminophen (Percocet 325-5 Mg) 1 - 2 tab PO Q4H PRN PRN Reason: Pain Last Admin: 08/29/16 03:06 Dose: 2 tab Phenylephrine HCl (Phenylephrine In Ns 100 Mcg/Ml) Confirm Administered Dose 1 mg .ROUTE .STK-MED ONE Stop: 08/28/16 17:30 Phenylephrine HCl (Phenylephrine In Ns 100 Mcg/Ml) Confirm Administered Dose 1 mg .ROUTE .STK-MED ONE Stop: 08/28/16 18:46 Pneumococcal Polyvalent Vaccine (Pneumovax 23) 0.5 ml IM .ONCE ONE Stop: 08/28/16 21:50 Propofol (Diprivan 20 Ml) Confirm Administered Dose 200 mg .ROUTE .STK-MED ONE Stop: 08/28/16 12:58 Rocuronium [place] (Zemuron) Confirm Administered Dose 50 mg .ROUTE .STK-MED ONE Stop: 08/28/16 12:59 Ropivacaine (Naropin 0.5%) Confirm Administered Dose 30 ml .ROUTE .STK-MED ONE Stop: 08/28/16 11:16 Scopolamine (Transderm-Scop) 1.5 mg TRDERM ONETIME ONE Stop: 08/28/16 13:32 Last Admin: 08/28/16 14:59 Dose: 1.5 mg Sodium Chloride (Saline Flush) 10 ml FLUSH ASDIRECTED PRN PRN Reason: Keep Vein Open Stop: 08/28/16 18:00 Tranexamic Acid (Cyklokapron) Confirm Administered Dose 1,000 mg .ROUTE .STK- MED ONE Stop: 08/28/16 12:50 Last Admin: 08/28/16 19:05 Dose: 1,000 mg Vancomycin HCl (Vancomycin) Confirm Administered Dose 1 gm .ROUTE .STK-MED ONE Stop: 08/28/16 12:50 - Exam Wound/Incisions: dressing dry and intact General: alert, cooperative, no acute distress Lungs: Normal respiratory effort Extremities: normal pulses (NVS intact for LUE. Active hand, wrist, elbow ROM noted.) - Problem List Review Problem List Initiated/Reviewed/Updated: Yes - My Orders Last 24 Hours: Active Orders 24 hr Category Date Time Status Cooling Warming Measures [RC] ASDIRECTED Care 08/28/16 15:41 Inactive Notify Provider [RC] ASDIRECTED Care 08/28/16 15:41 Active Oxygen Therapy [RC] ASDIRECTED Care 08/28/16 15:41 Active Ready for Discharge [RC] PER UNIT ROUTINE Care 08/29/16 06:31 Active Vaccines to be Administered [RC] PER UNIT ROUTINE Care 08/29/16 07:55 Active Vital Signs [RC] Q15M Care 08/28/16 15:41 Inactive Regular Diet [DIET] Diet 08/28/16 Dinner Active Aspirin [Ecotrin] Med 08/29/16 09:00 Active 325 mg PO DAILY Cholecalciferol (Vitamin D3) [Vitamin D3] Med 08/29/16 09:00 Active 2,000 units PO DAILY Cyclobenzaprine [Flexeril] Med 08/29/16 05:07 Active 10 mg PO Q8HR PRN Docusate Sodium [Colace] Med 08/28/16 21:00 Active 100 mg PO BID HYDROmorphone [Dilaudid] Med 08/29/16 12:23 Active 2 - 4 mg PO Q4H PRN Magnesium Hydroxide [Milk of Magnesia] Med 08/28/16 21:00 Active 30 ml PO BID PRN Pantoprazole [Protonix] Med 08/29/16 07:00 Active 40 mg PO DAILY@0700 Saccharomyces Boulardii [Florastor] Med 08/29/16 09:00 Active 250 mg PO DAILY Sennosides [Senna] Med 08/28/16 21:00 Active 8.6 mg PO BID PRN Vitamin B Complex with C [Super B With Vitamin C] Med 08/29/16 09:00 Active 1 cap PO DAILY ceFAZolin [Ancef] 2 gm Med 08/29/16 02:00 Active Premix Bag 1 bag IV Q8H oxyCODONE Med 08/29/16 05:04 Active 5 mg PO Q6H PRN Medication Orders Aspirin (Ecotrin) 325 mg PO DAILY [facility] Last Admin: 08/29/16 08:35 Dose: 325 mg Bisacodyl (Dulcolax) 5 mg PO DAILY PRN PRN Reason: Constipation Cholecalciferol (Vitamin D3) 2,000 units PO DAILY [facility] Last Admin: 08/29/16 08:35 Dose: 2,000 units Cyclobenzaprine HCl (Flexeril) 10 mg PO Q8HR PRN PRN Reason: Spasms Last Admin: 08/29/16 05:52 Dose: 10 mg Docusate Sodium (Colace) 100 mg PO BID [facility] Last Admin: 08/29/16 08:35 Dose: 100 mg Admin: 08/29/16 01:35 Dose: Not Given Hydromorphone HCl (Dilaudid) 2 - 4 mg PO Q4H PRN PRN Reason: Pain (severe 7-10) Last Admin: 08/29/16 12:55 Dose: 4 mg Cefazolin Sodium/Dextrose 2 gm (/ Premix) 50 mls @ 100 mls/hr IV Q8H [facility] Stop: 08/29/16 18:29 Last Admin: 08/29/16 09:55 Dose: 100 mls/hr Infusion: 08/29/16 03:05 Dose: 100 mls/hr Admin: 08/29/16 02:35 Dose: 100 mls/hr Magnesium Hydroxide (Milk Of Magnesia) 30 ml PO BID PRN PRN Reason: Constipation Morphine Sulfate (Morphine) 2 mg IVPUSH Q2H PRN PRN Reason: Breakthrough Pain Last Admin: 08/29/16 10:53 Dose: 2 mg Admin: 08/29/16 04:32 Dose: 2 mg Admin: 08/29/16 02:35 Dose: 2 mg Ondansetron HCl (Zofran) 4 mg IVPUSH Q6H PRN PRN Reason: Nausea/Vomiting Oxycodone HCl (Oxycodone) 5 mg PO Q6H PRN PRN Reason: Pain Last Admin: 08/29/16 05:52 Dose: 5 mg Pantoprazole Sodium (Protonix) 40 mg PO DAILY@0700 [facility] Last Admin: 08/29/16 06:46 Dose: Not Given Admin: 08/29/16 05:52 Dose: 40 mg Saccharomyces Boulardii (Florastor) 250 mg PO DAILY [facility] Last Admin: 08/29/16 08:34 Dose: 250 mg Senna (Senna) 8.6 mg PO BID PRN PRN Reason: Constipation Vitamin B Complex/Vitamin C (Super B With Vitamin C) 1 cap PO DAILY [facility] Last Admin: 08/29/16 08:35 Dose: 1 cap - Assessment Assessment (Free Text/Narrative):: POD#1 - left RTSA - Plan Plan (Free Text/Narrative):: 1. Discharge to home today. 2. Dilaudid and Flexeril for pain management at home. 3. Outpatient P.T. or [facility] RTSA protocol with subscap precautions. 4. f/u at outpatient Clinic next week. The pt's case was discussed with Dr. Pozo.
[2016-08-29] MEDS ORDERED: ceFAZolin 2 GM in Premix Bag 1 BAG IV ONE (16:00)
[2016-08-29 16:49] VITALS: BP 108/79
--- NOTE | 2016-09-01 08:28 | PCM.DCSUM1 ---
Discharge Summary - Hospital Course Brief History: Nancy is a 56 yo female who underwent left reverse total shoulder arthroplasty with Dr. Pozo on 08-28-2016. The procedure was completed under general anesthesia with regional block. The pt tolerated the procedure well and was admitted to the Medical-Surgical Unit. Medical management was provided by the Hospitalist service. The pt's Hospital course was uneventful. The pt's Hgb on POD#1 was 12.3. On POD#1, 325mg ASA was initiated for VTE prophylaxis. TEDs and SCDs were also ordered. A Mepilex dressing was placed at the incision site at the time of surgery and remained clean and dry. The pt participated in P.T. and O.T. and progressed well. On POD#1, the pt was deemed appropriate to discharge to home with her . - Discharge Data Discharge Date: 08/29/16 Discharge Disposition: Home, Self-Care 01 Condition: Good - Patient Summary/Data Consults: Consultations 08/28/16 07:07 Consult to Case Management [CONS] Routine Consult to Physician [CONS] Routine OT Evaluation and Treatment [CONS] Routine 08/28/16 07:12 PT Evaluation and Treatment [CONS] Routine - Patient Instructions Diet: Usual Diet as Tolerated Activity: Apply Ice, As Tolerated, Elevate Extremity Activity, Other: No use of the surgical arm. Driving: Do Not Drive Showering/Bathing: May Shower Wound/Incision Care: Keep Operative Site/Wound Site Clean and Dry, Do NOT Change Dressing Notify Provider of: Fever, Increased Pain, Swelling and Redness, Drainage, Nausea and/or Vomiting Other/Special Instructions: Please get up and moving around every hour while awake. This helps to prevent blood clots. Please take a 325mg aspirin daily. This also helps to prevent blood clots. Please wear the FERNANDO hose during the day and you may remove them at night. Please schedule for P.T. or O.T. Complete the exercises and stretches that were instructed in the Hospital. Please use the pain medication as needed. The medication may cause drowsiness and/or constipation. You could use a stool softener like docusate sodium or Colace 100mg twice daily and/or a laxative like polyethylene glycol or Miralax daily for constipation. Contact your primary care provider for further instructions if you are constipated. Please schedule an appointment with your primary care provider for 'routine post-op care'. Use the incentive spirometer often. Please place ice to the shoulder often. Have a towel between your skin and the cooling pad. Keep the Mepilex dressing in place until follow-up. Please call [phone] with questions or concerns. - Discharge Plan Prescriptions/Med Rec: Cyclobenzaprine [Flexeril] 10 mg PO Q8HR PRN #40 tablet PRN Reason: Spasms HYDROmorphone [Dilaudid] 2 mg PO Q4H #40 tablet oxyCODONE 5 mg PO Q6H PRN #30 tablet PRN Reason: Pain Home Medications: Home Meds Multivitamin [Multivitamins] 1 tab PO DAILY 09/18/15 [History] Cholecalciferol (Vitamin D3) [Vitamin D3] 2,000 unit PO DAILY 08/25/16 [History] L.acidoph,Paracasei, B.lactis [Probiotic] 1 tab PO DAILY 08/25/16 [History] Vitamin B Complex [B Complex] 1 tab PO DAILY 08/25/16 [History] Omeprazole Magnesium [Prilosec Otc] 20 mg PO DAILY 08/28/16 [History] Cyclobenzaprine [Flexeril] 10 mg PO Q8HR PRN #40 tablet 08/29/16 [Rx] HYDROmorphone [Dilaudid] 2 mg PO Q4H #40 tablet 08/29/16 [Rx] oxyCODONE 5 mg PO Q6H PRN #30 tablet 08/29/16 [Rx] Patient Handouts: Shoulder Joint Replacement, Shoulder Joint Replacement, Care After Referrals: Jada Kline PA-C [Physician C Architect] - 09/05/16 8:50 am (Please follow-up with Iva Kline on September 05 at 0850am. ) - Patient Data Vitals - Most Recent: Last Vital Signs Temp 98.1 F 08/29/16 12:25 Pulse 77 08/29/16 12:25 Resp 16 08/29/16 12:25 BP 108/79 08/29/16 16:00 Pulse Ox 93 L 08/29/16 12:25 Weight - Most Recent: 166 lb 11.2 oz Med Orders - Current: Current Medications Discontinued Medications Aspirin (Ecotrin) 325 mg PO DAILY [facility] Last Admin: 08/29/16 08:35 Dose: 325 mg Bisacodyl (Dulcolax) 5 mg PO DAILY PRN PRN Reason: Constipation Bupivacaine HCl (Marcaine 0.25%) Confirm Administered Dose 30 ml .ROUTE .STK- MED ONE Stop: 08/28/16 12:51 Last Admin: 08/28/16 19:00 Dose: 20 ml Cefazolin Sodium (Ancef) Confirm Administered Dose 2 gm .ROUTE .STK-MED ONE Stop: 08/28/16 12:51 Last Admin: 08/28/16 18:46 Dose: 2 gm Cefazolin Sodium (Ancef) Confirm Administered Dose 2 gm .ROUTE .STK-MED ONE Stop: 08/28/16 13:29 Cholecalciferol (Vitamin D3) 2,000 units PO DAILY [facility] OF [facility] Last Admin: 08/29/16 08:35 Dose: 2,000 units Citric Acid/Sodium Citrate (Bicitra Solution) 30 ml PO ONETIME ONE Stop: 08/28/16 12:18 Last Admin: 08/28/16 12:32 Dose: 30 ml Cyclobenzaprine HCl (Flexeril) 10 mg PO Q8HR PRN PRN Reason: Spasms Last Admin: 08/29/16 05:52 Dose: 10 mg Dexamethasone (Dexamethasone) Confirm Administered Dose 4 mg .ROUTE .STK-MED ONE Stop: 08/28/16 12:59 Diphenhydramine HCl (Benadryl) 25 mg IVPUSH Q6H PRN PRN Reason: pruritis Stop: 08/28/16 18:00 Diphtheria/Tetanus/Acell Pertussis (Boostrix) 0.5 ml IM .ONCE ONE Stop: 08/29/16 07:56 Last Admin: 08/29/16 15:40 Dose: 0.5 ml Docusate Sodium (Colace) 100 mg PO BID [facility] OF [facility] Last Admin: 08/29/16 08:35 Dose: 100 mg Ephedrine Sulfate (Ephedrine In Ns) Confirm Administered Dose 25 mg .ROUTE .STK- MED ONE Stop: 08/28/16 17:30 Ephedrine Sulfate (Ephedrine In Ns) Confirm Administered Dose 25 mg .ROUTE .STK- MED ONE Stop: 08/28/16 18:12 Epinephrine HCl (Adrenalin 1:1000) Confirm Administered Dose 1 mg .ROUTE .STK- MED ONE Stop: 08/28/16 11:16 Famotidine (Pepcid) 20 mg IVPUSH Q12H ON [facility] OF [facility] Last Admin: 08/28/16 22:32 Dose: 20 mg Fentanyl (Sublimaze) Confirm Administered Dose 100 mcg .ROUTE .STK-MED ONE Stop: 08/28/16 12:58 Fentanyl (Sublimaze) Confirm Administered Dose 100 mcg .ROUTE .STK-MED ONE Stop: 08/28/16 14:47 Fentanyl (Sublimaze) 50 mcg IVPUSH Q5M PRN PRN Reason: Pain Stop: 08/28/16 18:00 Fentanyl (Sublimaze) Confirm Administered Dose 100 mcg .ROUTE .STK-MED ONE Stop: 08/28/16 16:53 Glycopyrrolate () Confirm Administered Dose 1 mg .ROUTE .STK-MED ONE Stop: 08/28/16 17:30 Hydromorphone HCl (Dilaudid) 2 mg PO ONETIME ONE Stop: 08/29/16 07:31 Last Admin: 08/29/16 07:41 Dose: 2 mg Hydromorphone HCl (Dilaudid) 2 - 4 mg PO Q4H PRN PRN Reason: Pain (severe 7-10) Last Admin: 08/29/16 12:55 Dose: 4 mg Lactated Ringer's (Ringers, Lactated) 1,000 mls @ 125 mls/hr IV ASDIRECTED ON LICENSE OF [facility] Stop: 08/28/16 23:00 Last Admin: 08/28/16 14:50 Dose: 125 mls/hr Lidocaine HCl (Xylocaine-Mpf 1%) Confirm Administered Dose 2 mls @ as directed .ROUTE .STK-MED ONE Stop: 08/28/16 11:16 Lidocaine HCl (Xylocaine-Mpf 1%) Confirm Administered Dose 4 mls @ as directed .ROUTE .STK-MED ONE Stop: 08/28/16 12:59 Lactated Ringer's (Ringers, Lactated) Confirm Administered Dose 1,000 mls @ as directed .ROUTE .STK-MED ONE Stop: 08/28/16 18:31 Lactated Ringer's (Ringers, Lactated) Confirm Administered Dose 1,000 mls @ as directed .ROUTE .STK-MED ONE Stop: 08/28/16 18:31 Cefazolin Sodium/Dextrose 2 gm (/ Premix) 50 mls @ 100 mls/hr IV Q8H [facility] Stop: 08/29/16 18:29 Last Admin: 08/29/16 09:55 Dose: 100 mls/hr Cefazolin Sodium/Dextrose 2 gm (/ Premix) 50 mls @ 100 mls/hr IV ONETIME ONE Stop: 08/29/16 16:29 Last Admin: 08/29/16 15:32 Dose: 100 mls/hr Iodine (Iodine 2% Mild Tincture) Confirm Administered Dose 30 ml .ROUTE .STK- MED ONE Stop: 08/28/16 12:51 Last Admin: 08/28/16 18:45 Dose: 18 ml Ketamine HCl (Ketalar) Confirm Administered Dose 500 mg .ROUTE .STK-MED ONE Stop: 08/28/16 17:56 Lidocaine/Sodium Bicarbonate (Buffered Lidocaine 1% In Ns 8.4%) 0.25 ml IV ONETIME PRN PRN Reason: Prior to IV Start Stop: 08/28/16 18:00 Last Admin: 08/28/16 12:14 Dose: 0.25 ml Lorazepam (Ativan) 1 mg IVPUSH ONETIME ONE Stop: 08/28/16 15:41 Last Admin: 08/28/16 22:50 Dose: Not Given Magnesium Hydroxide (Milk Of Magnesia) 30 ml PO BID PRN PRN Reason: Constipation Meperidine HCl (Demerol) 12.5 mg IVPUSH ONETIME PRN PRN Reason: shivering Stop: 08/28/16 18:00 Midazolam HCl (Versed 1 Mg/Ml) Confirm Administered Dose 2 mg .ROUTE .STK-MED ONE Stop: 08/28/16 12:58 Midazolam HCl (Versed 1 Mg/Ml) Confirm Administered Dose 2 mg .ROUTE .STK-MED ONE Stop: 08/28/16 14:47 Morphine Sulfate (Morphine) 2 mg IVPUSH Q2H PRN PRN Reason: Breakthrough Pain Last Admin: 08/29/16 10:53 Dose: 2 mg Multivitamins (Thera) 1 each PO WITHBREAKFAST [facility] Naloxone HCl (Narcan) 0.1 mg IVPUSH Q5M PRN PRN Reason: Oversedation Stop: 08/28/16 15:16 Neostigmine Methylsulfate (Neostigmine) Confirm Administered Dose 5 mg .ROUTE .STK-MED ONE Stop: 08/28/16 17:30 Non-Formulary Medication (Multivitamin [Multivitamins]) 1 tab PO DAILY ON LICENSE OF [facility] Ondansetron HCl (Zofran) 4 mg IVPUSH Q6H PRN PRN Reason: Nausea/Vomiting Ondansetron HCl (Zofran) Confirm Administered Dose 4 mg .ROUTE .STK-MED ONE Stop: 08/28/16 12:59 Ondansetron HCl (Zofran) 4 mg IVPUSH ONETIME PRN PRN Reason: Nausea/Vomiting Stop: 08/28/16 18:00 Last Admin: 08/28/16 20:01 Dose: 4 mg Oxycodone HCl (Oxycodone) 5 mg PO Q6H PRN PRN Reason: Pain Last Admin: 08/29/16 16:04 Dose: 5 mg Oxycodone/Acetaminophen (Percocet 325-5 Mg) 1 - 2 tab PO Q4H PRN PRN Reason: Pain Last Admin: 08/29/16 03:06 Dose: 2 tab Pantoprazole Sodium (Protonix) 40 mg PO DAILY@0700 ON LICENSE OF [facility] Last Admin: 08/29/16 06:46 Dose: Not Given Phenylephrine HCl (Phenylephrine In Ns 100 Mcg/Ml) Confirm Administered Dose 1 mg .ROUTE .STK-MED ONE Stop: 08/28/16 17:30 Phenylephrine HCl (Phenylephrine In Ns 100 Mcg/Ml) Confirm Administered Dose 1 mg .ROUTE .STK-MED ONE Stop: 08/28/16 18:46 Pneumococcal Polyvalent Vaccine (Pneumovax 23) 0.5 ml IM .ONCE ONE Stop: 08/28/16 21:50 Last Admin: 08/29/16 15:36 Dose: 0.5 ml Propofol (Diprivan 20 Ml) Confirm Administered Dose 200 mg .ROUTE .STK-MED ONE Stop: 08/28/16 12:58 Rocuronium [place] (Zemuron) Confirm Administered Dose 50 mg .ROUTE .STK-MED ONE Stop: 08/28/16 12:59 Ropivacaine (Naropin 0.5%) Confirm Administered Dose 30 ml .ROUTE .STK-MED ONE Stop: 08/28/16 11:16 Saccharomyces Boulardii (Florastor) 250 mg PO DAILY ON LICENSE OF [facility] Last Admin: 08/29/16 08:34 Dose: 250 mg Scopolamine (Transderm-Scop) 1.5 mg TRDERM ONETIME ONE Stop: 08/28/16 13:32 Last Admin: 08/28/16 14:59 Dose: 1.5 mg Senna (Senna) 8.6 mg PO BID PRN PRN Reason: Constipation Sodium Chloride (Saline Flush) 10 ml FLUSH ASDIRECTED PRN PRN Reason: Keep Vein Open Stop: 08/28/16 18:00 Tranexamic Acid (Cyklokapron) Confirm Administered Dose 1,000 mg .ROUTE .STK- MED ONE Stop: 08/28/16 12:50 Last Admin: 08/28/16 19:05 Dose: 1,000 mg Vancomycin HCl (Vancomycin) Confirm Administered Dose 1 gm .ROUTE .STK-MED ONE Stop: 08/28/16 12:50 Vitamin B Complex/Vitamin C (Super B With Vitamin C) 1 cap PO DAILY [facility] Last Admin: 08/29/16 08:35 Dose: 1 cap *Q Meaningful Use (DIS) - VTE *Q VTE Criteria *Q: - Stroke *Q Stroke Criteria *Q: - AMI *Q AMI Criteria *Q:
--- NOTE | 2016-09-03 21:17 | PCM.OPNOTE ---
- General Post-Op/Procedure Note Date of Surgery/Procedure: 08/28/16 Operative Procedure(s): left reverse total shoulder arthroplasty Pre Op Diagnosis: left glenohumeral arthrosis Post-Op Diagnosis: Same Anesthesia Technique: General ET tube, Regional block Primary Surgeon: Charanjit Pozo Anesthesia Provider: Linda Berry Cook Manager: Jada Kline Cook Manager: Amna Rios EBL in mLs: 200 Complications: None Condition: Good
--- NOTE | 2016-09-04 09:20 | OR ---
DATE OF OPERATION: 08/28/2016 SURGEON: Charanjit Pozo MD OPERATION PERFORMED: Left reverse total shoulder arthroplasty. PREOPERATIVE DIAGNOSIS: Left glenohumeral arthrosis. POSTOPERATIVE DIAGNOSIS: Left glenohumeral arthrosis. ANESTHESIA TECHNIQUE: General endotracheal intubation with supraclavicular block. ANESTHESIA PROVIDER: Linda Berry CRNA. ASSISTANTS: Jada Kline PA-C and Amna Rios LPN. ESTIMATED BLOOD LOSS: 200 mL. COMPLICATIONS: None. CONDITION: Stable. IMPLANTS: 1. Arthrex small glenoid universal base plate. 2. Size 6 reverse total shoulder arthroplasty Arthrex stem. 3. Cap coated 36+ 2 right offset humeral component. 4. 36+ 4 glenosphere Arthrex. 5. Times two 4.5 mm x 24 mm Arthrex peripheral locking screws. 6. 6.5 x 20 mm compression screw. DESCRIPTION OF PROCEDURE: The patient was identified in the preop holding area. Proper site was marked and identified by the surgeon. The patient was taken back to the operating theater where after adequate anesthesia, the patient's left shoulder was sterilely prepped and draped in the usual sterile fashion. OR time-out was performed, the patient received 2 g IV Ancef. At this time, deltopectoral incision was made. The cephalic vein was identified and was retracted laterally with the deltoid, subdeltoid space along with subacromial space was then freed. The clavipectoral fascia was then incised and the conjoined tendon was tracked medially. The anterior humeral circumflex vessels were then ligated. The biceps tendon was identified and was tenodesed subpectorally, this was then resected and the biceps tendon was removed all the way up underneath the CA ligament, making sure to keep the CA ligament intact. At this time, the subscapularis tendon then was taken down and peeled off the lesser tuberosity. The humeral head was then dislocated and drill hole was then placed and the broach handle was placed down the canal and humeral cut was made. At this time, on closer examination, the patient was noted has supraspinatus tear along with significant thinning of both remaining supraspinatus and infraspinatus. At this time, it was decided since the patient was a smoker as well, that this had high likelihood of continuing to tear. At this time, we decided to a reverse total shoulder arthroplasty. Attention was turned to the glenoid. At this time, the glenoid was released circumferentially. The biceps tendon as well as anterior posterior labrum were then removed. The patient had a very small glenoid. A small glenosphere was going to be adequate coverage. At this time, the central guide pin was then placed in a center-center position and was found to exit the vault in a proper position. The central drill hole was then used and a reamer was brought over the top of this to good cancellous bleeding bone. A small glenosphere base plate was then impacted into place. The 2 peripheral locking screws were then placed and then the central nonlocking screw was placed to compressive the glenosphere base plate. The 2 peripheral locking screws were then tightened after this was compressed. The 36+ 4 mm glenosphere was then impacted into place and attention was turned to the humerus. Humeral stem was found to be a size 6 in roughly 30 degrees of retroversion and was found to be rotationally and vertically stable. At this time, the patient had a very small humeral head, so a +2 offset reamer was used to the right side for this patient. The trial components were then placed with a 3 mm liner at 135 degrees and was reduced. The patient's shoulder showed no signs of instability with good tension on the deltoid and full range of motion with no blocked motion. At this time, the size 6 Arthrex stem with 135 degree was then impacted into place and a 3 mm polyethylene was impacted into place. The patient's shoulder was then reduced. 1 L of dilute Betadine solution was then irrigated through the wound along 3 L pulse lavage irrigation with Ancef. Periarticular injection was then completed. At this time, subscapularis tendon was repaired through drill holes in the lesser tuberosity and was sutured down. The deltopectoral interval was tagged using #2 FiberWire. 2-0 Vicryl was used subcutaneously and Prineo was used for the skin. The patient was placed in a pillow adductor wedge and was sent to PACU in stable condition. ANESTHESIA: [facility][id number] [facility]
== END 2016-08-29 16:45 | disposition home or self-care (01) | DRG 315 ==
LOC: JD.MS 11:31
PROVIDERS: ADMIT Orthopaedic Surgery; ATTEND Orthopaedic Surgery
PROC: 0RRK0JZ Replacement of Left Shoulder Joint with Synthetic Substitute, Open Approach (ICD-10-PCS; principal; 2016-08-28)
DX: M19.012 Primary osteoarthritis, left shoulder (principal); Z91.040 Latex allergy status; Z88.0 Allergy status to penicillin; Z91.048 Other nonmedicinal substance allergy status
CPT/HCPCS: 01630; 36415; 64415; 73020-26-LT; 73020-LT; 76000; 76000-26; 80053; 85025; 90715; 90732; 97110-GP; 97140-GP; 97161-GP; 97165-GO; 97535-GO; A9270; A9270-GY; C1713; C1776; J0171; J0690; J1100; J2250; J2270; J2405; J2704; J2710; J2795; J3010; J3370; J3490; J7050; J7120

== ENCOUNTER 2020-04-30 11:25 | Inpatient (IN) | payer BC ==
[2020-04-30] MEDS ORDERED: Sodium Chloride 0.9% 10 ML Syringe FLUSH PRN (12:02)
--- NOTE | 2020-04-30 12:09 | EDM.PDOC ---
ED HPI GENERAL MEDICAL PROBLEM - General Chief Complaint: Respiratory Problem Stated Complaint: COVID + Time Seen by Provider: 04/30/20 11:51 Source of Information: Reports: Patient, RN Notes Reviewed History Limitations: Reports: No Limitations - History of Present Illness INITIAL COMMENTS - FREE TEXT/NARRATIVE: Patient is a 59-year-old female who presents to the ED for evaluation of her ongoing COVID-19 symptoms. The patient became symptomatic with COVID-19 12 days ago, she tested positive last week Sunday. She states she has been having increased respiratory difficulty since then, she has had fevers, chills, loss of her sense of taste and smell, she was also diagnosed with a pneumonia 5 days ago and was started on a Z-Rodriguez at that time along with steroids and antiacid medications. She has been complaining of massive headaches, that have seemed to be getting better. At the time of triage her O2 sats were 75% on room air, when she rested call me they improved to 82 to 83%. The nurse did subsequently place her on 4 L of oxygen via nasal cannula to achieve a sat of 94 to 95% on room air. Patient is having a hard time completing sentences due to her dyspnea. Her primary care provider is Mónica Gary. 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 Allergy Blisters Uncoded 08/25/16 12:46 Home Meds: Home Meds Multivitamin [Multivitamins] 1 tab PO DAILY 09/18/15 [History] Cholecalciferol (Vitamin D3) [Vitamin D3] 2,000 unit PO DAILY 08/25/16 [History] L.acidoph,Paracasei, B.lactis [Probiotic] 1 tab PO DAILY 08/25/16 [History] Vitamin B Complex [B Complex] 1 tab PO DAILY 08/25/16 [History] Omeprazole Magnesium [Prilosec Otc] 20 mg PO DAILY 08/28/16 [History] Cyclobenzaprine [Flexeril] 10 mg PO Q8HR PRN #40 tablet 08/29/16 [Rx] HYDROmorphone [Dilaudid] 2 mg PO Q4H #40 tablet 08/29/16 [Rx] oxyCODONE 5 mg PO Q6H PRN #30 tablet 08/29/16 [Rx] Past Medical History Gastrointestinal History: Reports: GERD DIRECTOR OF [employer] History: Reports: Other DIRECTOR [employer] History: Vaginal delivery x 2 Musculoskeletal History: Reports: Osteoarthritis, Other (See Below) Other Musculoskeletal History: left total shoulder. Neurological History: Reports: Vertigo Psychiatric History: Reports: Anxiety, Depression Endocrine/Metabolic History: Reports: Obesity/BMI 30+ Dermatologic History: Reports: Other (See Below) Other Dermatologic History: eczema chronic - Past Surgical History HEENT Surgical History: Reports: Other (See Below) Other HEENT Surgeries/Procedures: wisdom teeth extraction Social & Family History - Family History Cardiac: Reports: Heart Failure Endocrine/Metabolic: Reports: Diabetes, type II Oncologic: Reports: Bone, Breast - Caffeine Use Caffeine Use: Reports: None ED ROS GENERAL - Review of Systems Review Of Systems: Comprehensive ROS is negative, except as noted in HPI. ED EXAM, GENERAL - Physical Exam Exam: See Below Exam Limited By: No Limitations General Appearance: Alert, WD/WN, Mild Distress (pt is visibly dyspneic, cannot complete sentences without pausing.) Respiratory/Chest: Lungs Clear, No Accessory Muscle Use, Chest Non-Tender, Respiratory Distress (mild generalized dyspnea), Decreased Breath Sounds (diffuse bilaterally) Cardiovascular: Normal Peripheral Pulses, Regular Rate, Rhythm, No Murmur Peripheral Pulses: 2+: Radial (L), Radial (R) GI/Abdominal: Normal Bowel Sounds, Soft, Non-Tender, No Distention, No Mass Extremities: Normal Inspection, Normal Capillary Refill Neurological: Alert, Oriented, Normal Cognition, No Motor/Sensory Deficits Psychiatric: Normal Affect, Normal Mood Skin Exam: Warm, Dry, Intact, Normal Color, No Rash #1 Interpretation EKG Date: 04/30/20 Time: 12:31 Rhythm: NSR Rate (Beats/Min): 85 [place]: LAD-Left [place] Deviation (left ventricular hypertrophy) P-Wave: Present QRS: Normal ST-T: Normal Comparison: NA - No Prior EKG EKG Interpretation Comments: No obvious ischemia or acute ST changes noted, reviewed by myself and Dr. Grove. Course - Vital Signs Last Recorded V/S: Last Vital Signs Temp 99.7 F 04/30/20 11:25 Pulse 88 04/30/20 11:25 Resp 18 04/30/20 11:25 BP 146/84 H 04/30/20 11:25 Pulse Ox 75 L 04/30/20 11:25 - Orders/Labs/Meds Orders: Active Orders 24 hr Category Date Time Status EKG Documentation Completion [RC] STAT Care 04/30/20 12:00 Active Peripheral IV Care [RC] . DIRECTED Care 04/30/20 12:03 Active Chest 1V Frontal [CR] Stat Exams 04/30/20 12:00 Taken C-REACTIVE PROTEIN [CHEM] Stat Lab 04/30/20 12:20 Received CULTURE BLOOD [BC] Stat Lab 04/30/20 12:20 Received CULTURE BLOOD [BC] Stat Lab 04/30/20 12:26 Received LACTATE SEPSIS W/ REFLEX [CHEM] Stat Lab 04/30/20 12:20 Received Remdesivir 200 mg Med 04/30/20 13:32 Active Sodium Chloride 0.9% [Normal Saline] 250 ml IV ONETIME Sodium Chloride 0.9% [Saline Flush] Med 04/30/20 12:02 Active 10 ml FLUSH ASDIRECTED PRN Blood Culture x2 Reflex Set [OM.PC] Stat Oth 04/30/20 12:01 Ordered Isolation [COMM] Routine Oth 04/30/20 12:00 Ordered Peripheral IV Insertion Adult [OM.PC] Routine Oth 04/30/20 12:03 Ordered Medication Orders Remdesivir 200 mg/ Sodium (Chloride) 250 mls @ 250 mls/hr IV ONETIME ONE Stop: 04/30/20 13:33 Sodium Chloride (Saline Flush) 10 ml FLUSH ASDIRECTED PRN PRN Reason: Keep Vein Open Last Admin: 04/30/20 12:20 Dose: 10 ml Documented by: SHARON Labs: Laboratory Tests 04/30/20 04/30/20 04/30/20 Range/Units 12:20 12:20 12:20 WBC 9.95 (3.98-10.04) K/mm3 RBC 4.82 (3.98-5.22) M/mm3 Hgb 14.1 D (11.2-15.7) gm/dl Hct 41.4 (34.1-44.9) % MCV 85.9 D (79.4-94.8) fl MCH 29.3 (25.6-32.2) pg MCHC 34.1 (32.2-35.5) g/dl RDW Std Deviation 42.9 (36.4-46.3) fL Plt Count 340 D (182-369) K/mm3 MPV 9.9 (9.4-12.3) fl Neutrophils % (Manual) 89 H (40-60) % Band Neutrophils % 1 (0-10) % Lymphocytes % (Manual) 5 L (20-40) % Atypical Lymphs % 0 % Monocytes % (Manual) 5 (2-10) % Eosinophils % (Manual) 0 L (0.7-5.8) % Basophils % (Manual) 0 L (0.1-1.2) Platelet Estimate Adequate RBC Morph Comment Normal PT 10.4 (9.7-12.0) SECONDS INR 0.97 APTT 24.5 (21.7-31.4) SECONDS D-Dimer, Quantitative 1.15 H (0.19-0.50) mg/L Sodium 139 (136-145) mEq/L Potassium 3.6 (3.5-5.1) mEq/L Chloride 100 (98-107) mEq/L Carbon Dioxide 29 (21-32) mEq/L Anion Gap 13.6 (5-15) BUN 16 (7-18) mg/dL Creatinine 1.0 (0.55-1.02) mg/dL Est Cr Clr Drug Dosing 45.14 mL/min Estimated GFR (MDRD) 57 (>60) mL/min BUN/Creatinine Ratio 16.0 (14-18) Glucose 122 H (74-106) mg/dL Calcium 9.5 (8.5-10.1) mg/dL Magnesium 2.2 (1.8-2.4) mg/dl Ferritin (8-252) ng/ml Total Bilirubin 0.5 (0.2-1.0) mg/dL AST 23 (15-37) U/L ALT 25 (14-59) U/L Alkaline Phosphatase 69 (46-116) U/L Lactate Dehydrogenase 486 H (81-234) U/L Troponin I < 0.017 (0.00-0.056) ng/mL NT-Pro-B Natriuret Pep (0-125) pg/mL Total Protein 8.5 H (6.4-8.2) g/dl Albumin 3.1 L (3.4-5.0) g/dl Globulin 5.4 gm/dL Albumin/Globulin Ratio 0.6 L (1-2) 04/30/20 04/30/20 Range/Units 12:20 12:20 WBC (3.98-10.04) K/mm3 RBC (3.98-5.22) M/mm3 Hgb (11.2-15.7) gm/dl Hct (34.1-44.9) % MCV (79.4-94.8) fl MCH (25.6-32.2) pg MCHC (32.2-35.5) g/dl RDW Std Deviation (36.4-46.3) fL Plt Count (182-369) K/mm3 MPV (9.4-12.3) fl Neutrophils % (Manual) (40-60) % Band Neutrophils % (0-10) % Lymphocytes % (Manual) (20-40) % Atypical Lymphs % % Monocytes % (Manual) (2-10) % Eosinophils % (Manual) (0.7-5.8) % Basophils % (Manual) (0.1-1.2) Platelet Estimate RBC Morph Comment PT (9.7-12.0) SECONDS INR APTT (21.7-31.4) SECONDS D-Dimer, Quantitative (0.19-0.50) mg/L Sodium (136-145) mEq/L Potassium (3.5-5.1) mEq/L Chloride (98-107) mEq/L Carbon Dioxide (21-32) mEq/L Anion Gap (5-15) BUN (7-18) mg/dL Creatinine (0.55-1.02) mg/dL Est Cr Clr Drug Dosing mL/min Estimated GFR (MDRD) (>60) mL/min BUN/Creatinine Ratio (14-18) Glucose (74-106) mg/dL Calcium (8.5-10.1) mg/dL Magnesium (1.8-2.4) mg/dl Ferritin 496 H (8-252) ng/ml Total Bilirubin (0.2-1.0) mg/dL AST (15-37) U/L ALT (14-59) U/L Alkaline Phosphatase (46-116) U/L Lactate Dehydrogenase (81-234) U/L Troponin I (0.00-0.056) ng/mL NT-Pro-B Natriuret Pep 304 H (0-125) pg/mL Total Protein (6.4-8.2) g/dl Albumin (3.4-5.0) g/dl Globulin gm/dL Albumin/Globulin Ratio (1-2) Meds: Medications Generic Name Dose Route Start Last Admin Trade Name Joaquín PRN Reason Stop Dose Admin Remdesivir 200 mg/ Sodium 250 mls @ 250 mls/hr 04/30/20 13:32 Chloride IV 04/30/20 13:33 ONETIME ONE Sodium Chloride 10 ml 04/30/20 12:02 04/30/20 12:20 Saline Flush FLUSH 10 ml ASDIRECTED PRN Administration Keep Vein Open - Re-Assessments/Exams Free Text/Narrative Re-Assessment/Exam: 04/30/20 12:12 Presents to the ED for evaluation of her ongoing COVID-19 symptoms along with hypoxia. She is requiring 4 L of oxygen initially. We will get initial labs and will likely have to admit her for hospitalization due to her oxygenation status. 04/30/20 12:45 Labs are still pending. The chest x-ray does demonstrate bilateral pulmonary infiltrates at this time. I did call [facility] in [place] for possible bed placement, and they state that Dr. Pierce the hospitalist does usually like labs before admission is excepted. I will call back when I have more labs resulted. Should not post exchange manager much however, as she is hypoxic and has COVID-19. 04/30/20 13:36 The patient's labs have started to result,, I did call Dr. Pierce back with these, and he does ultimately accept for transfer. He does request that we start IV remdesivir and dexamethasone if she did not get her steroid dose. Patient does not member taking any pills this morning, and she also was was take 1 more dose of a azithromycin, so we will give her this before transfer to [place]. her was called and made aware of her transfer to [place]. 04/30/20 13:46 As I was coordinating transfer over to [place], I was told by the charge nurse Shruthi that we do have beds available here. So I will call Dr. Alvarado for admission. 04/30/20 13:51 The patient was accepted for hospitalization by Dr. Anderson. IV remdesivir, 6 mg dexamethasone, and her last dose of oral azithromycin have been given to the patient for further management. Departure - Departure Time of Disposition: 13:53 Disposition: Admitted As Inpatient 65 Condition: Good Clinical Impression: Hypoxia, COVID-19 - Discharge Information *PRESCRIPTION DRUG MONITORING PROGRAM REVIEWED*: No *COPY OF PRESCRIPTION DRUG MONITORING REPORT IN PATIENT KASANDRA: No Referrals: Mónica Gary NP [Primary Care Provider] - Forms: ED Department Discharge Sepsis Event Note (ED) - Evaluation Sepsis Screening Result: No Definite Risk - Focused Exam Vital Signs: Vital Signs Temp Pulse Resp BP Pulse Ox 04/30/20 11:25 99.7 F 88 18 146/84 H 75 L - My Orders Last 24 Hours: My Active Orders 04/30/20 12:00 EKG Documentation Completion [RC] STAT Chest 1V Frontal [CR] Stat Isolation [COMM] Routine 04/30/20 12:01 Blood Culture x2 Reflex Set [OM.PC] Stat 04/30/20 12:02 Sodium Chloride 0.9% [Saline Flush] 10 ml FLUSH ASDIRECTED PRN 04/30/20 12:03 Peripheral IV Care [RC] . DIRECTED Peripheral IV Insertion Adult [OM.PC] Routine 04/30/20 12:20 C-REACTIVE PROTEIN [CHEM] Stat CULTURE BLOOD [BC] Stat LACTATE SEPSIS W/ REFLEX [CHEM] Stat 04/30/20 12:26 CULTURE BLOOD [BC] Stat 04/30/20 13:32 Remdesivir 200 mg Sodium Chloride 0.9% [Normal Saline] 250 ml IV ONETIME - Assessment/Plan Last 24 Hours: My Active Orders 04/30/20 12:00 EKG Documentation Completion [RC] STAT Chest 1V Frontal [CR] Stat Isolation [COMM] Routine 04/30/20 12:01 Blood Culture x2 Reflex Set [OM.PC] Stat 04/30/20 12:02 Sodium Chloride 0.9% [Saline Flush] 10 ml FLUSH ASDIRECTED PRN 04/30/20 12:03 Peripheral IV Care [RC] . DIRECTED Peripheral IV Insertion Adult [OM.PC] Routine 04/30/20 12:20 C-REACTIVE PROTEIN [CHEM] Stat CULTURE BLOOD [BC] Stat LACTATE SEPSIS W/ REFLEX [CHEM] Stat 04/30/20 12:26 CULTURE BLOOD [BC] Stat 04/30/20 13:32 Remdesivir 200 mg Sodium Chloride 0.9% [Normal Saline] 250 ml IV ONETIME
[2020-04-30] MEDS ORDERED: REMDESIVIR 200 MG in Sodium Chloride 0.9% 250 ML IV ONE (13:32)
[2020-04-30] MEDS ORDERED: Azithromycin 250 MG Tab PO ONE (13:41)
[2020-04-30] MEDS ORDERED: Dexamethasone 10 MG/ML SDV IVPUSH ONE (13:41)
[2020-04-30] MEDS ORDERED: Ondansetron 4 MG/2 ML SDV IV PRN (16:52)
[2020-04-30] MEDS ORDERED: Ondansetron 4 MG Tab.DIS PO PRN (16:56)
[2020-04-30] MEDS ORDERED: LORazepam 1 MG Tab PO PRN (17:04)
--- NOTE | 2020-04-30 17:09 | PCM.HP.2 ---
H&P History of Present Illness - General Date of Service: 04/30/20 Admit Problem/Dx: Admission Diagnosis/Problem Admission Diagnosis/Problem Hypoxia - History of Present Illness Initial Comments - Free Text/Narative: 59-year-old female who first developed symptoms of shortness of breath, cough, and headaches on April 18, 2020 and diagnosed after a nasal swab on April 20 with COVID-19 has had progressive shortness of breath, fevers as high as 104, chills, loss of sense of smell and taste. She was diagnosed 5 days ago with pneumonia and placed on a Z-Rodriguez and steroids. Patient returned to her primary c are provider Mónica Gary today and oxygen saturations were 75% on room air. She was placed on 4 L/min of oxygen via nasal cannula and saturations increased to the low to mid 90s. Patient is feeling better but is very anxious. Patient has a history of anxiety disorder. She stopped smoking 5 years ago. She smoked for several years. 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 Allergy Blisters Uncoded 08/25/16 12:46 Home Medications: Home Meds Cholecalciferol (Vitamin D3) [Vitamin D3] 1,000 unit PO DAILY 08/25/16 [History] Omeprazole Magnesium [Prilosec Otc] 20 mg PO DAILY 08/28/16 [History] Ascorbic Acid/Ascorbate Sodium [Vitamin C 500 mg Wafer] 1,000 mg PO DAILY 04/30/20 [History] Calcium Carbonate [Calcium] 500 mg PO DAILY 04/30/20 [History] Ondansetron [Zofran ODT] 4 mg PO Q4H PRN 04/30/20 [History] Zinc Gluconate [Zinc] 50 mg PO DAILY 04/30/20 [History] buPROPion HCL [Bupropion Xl] 150 mg PO DAILY 04/30/20 [History] dexAMETHasone [Dexamethasone] 6 mg PO DAILY 04/30/20 [History] Past Medical History HEENT History: Reports: Glaucoma, Macular Degeneration, Other (See Below) Other HEENT History: facial pressure, allergy issues. Cardiovascular History: Reports: Other (See Below) Other Cardiovascular History: palpitations Respiratory History: Reports: Pneumonia, Recurrent, Other (See Below) Other Respiratory History: states has had lung issues since last shoulder surgery. 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 Neurological History: Reports: Concussion, Vertigo Other Neuro History: vestibular vertigo. Psychiatric History: Reports: Anxiety, Depression Endocrine/Metabolic History: Reports: Obesity/BMI 30+ Dermatologic History: Reports: Eczema, Other (See Below) Other Dermatologic History: eczema chronic - Infectious Disease History Infectious Disease History: Reports: Chicken Pox, Measles, Novel Coronavirus - Past Surgical History HEENT Surgical History: Reports: Other (See Below) Other HEENT Surgeries/Procedures: wisdom teeth extraction Cardiovascular Surgical History: Reports: None Respiratory Surgical History: Reports: None GI Surgical History: Reports: None Female Surgical History: Reports: None Endocrine Surgical History: Reports: None Neurological Surgical History: Reports: None Musculoskeletal Surgical History: Reports: Shoulder Replacement Oncologic Surgical History: Reports: None Social & Family History - Family History Cardiac: Reports: Heart Failure Endocrine/Metabolic: Reports: Diabetes, type II Oncologic: Reports: Bone, Breast - Tobacco Use Tobacco Use Status *Q: Former Tobacco User Years of Tobacco use: 30 Packs/Tins Daily: 0.5 Used Tobacco, but Quit: Yes Month/Year Tobacco Last Used: Jun 2014 - Caffeine Use Caffeine Use: Reports: None - Recreational Drug Use Recreational Drug Use: No H&P Review of Systems - Review of Systems: Review Of Systems: Comprehensive ROS is negative, except as noted in HPI. Exam - Exam Exam: See Below - Vital Signs Vital Signs: Last Vital Signs Temp 98.8 F 04/30/20 15:42 Pulse 69 04/30/20 15:42 Resp 26 H 04/30/20 15:42 BP 134/86 04/30/20 15:42 Pulse Ox 91 L 04/30/20 15:42 Weight: 184 lb 1.376 oz - Exam Quality Assessment: Supplemental Oxygen General: Alert, Oriented, 4 HEENT: Conjunctiva Clear, Hearing Intact, Mucosa Moist & Furman Neck: Supple, Trachea Midline, 2 Lungs: Rales (Bibasilar and midlung bradshaw). No: Normal Respiratory Effort (Mildly increased respiratory rate and effort) Cardiovascular: Regular Rate, Regular Rhythm GI/Abdominal Exam: Normal Bowel Sounds, Soft, Non-Tender, No Distention Back Exam: Normal Inspection Extremities: Normal Inspection, Normal Range of Motion, Non-Tender, No Pedal Edema, Normal Capillary Refill Skin: Warm, Dry, Intact Neuro Extensive - Mental Status: Alert, Oriented x3, Normal Mood/Affect, Normal Cognition, Memory Intact Psychiatric: Alert, Normal Affect, Normal Mood - Patient Data Lab Results Last 24 hrs: Laboratory Results - last 24 hr 04/30/20 04/30/20 04/30/20 Range/Units 12:20 12:20 12:20 WBC 9.95 (3.98-10.04) K/mm3 RBC 4.82 (3.98-5.22) M/mm3 Hgb 14.1 D (11.2-15.7) gm/dl Hct 41.4 (34.1-44.9) % MCV 85.9 D (79.4-94.8) fl MCH 29.3 (25.6-32.2) pg MCHC 34.1 (32.2-35.5) g/dl RDW Std Deviation 42.9 (36.4-46.3) fL Plt Count 340 D (182-369) K/mm3 MPV 9.9 (9.4-12.3) fl Neutrophils % (Manual) 89 H (40-60) % Band Neutrophils % 1 (0-10) % Lymphocytes % (Manual) 5 L (20-40) % Atypical Lymphs % 0 % Monocytes % (Manual) 5 (2-10) % Eosinophils % (Manual) 0 L (0.7-5.8) % Basophils % (Manual) 0 L (0.1-1.2) Platelet Estimate Adequate RBC Morph Comment Normal PT 10.4 (9.7-12.0) SECONDS INR 0.97 APTT 24.5 (21.7-31.4) SECONDS D-Dimer, Quantitative 1.15 H (0.19-0.50) mg/L Sodium (136-145) mEq/L Potassium (3.5-5.1) mEq/L Chloride (98-107) mEq/L Carbon Dioxide (21-32) mEq/L Anion Gap (5-15) BUN (7-18) mg/dL Creatinine (0.55-1.02) mg/dL Est Cr Clr Drug Dosing mL/min Estimated GFR (MDRD) (>60) mL/min BUN/Creatinine Ratio (14-18) Glucose (74-106) mg/dL Lactic Acid (0.4-2.0) mmol/L Calcium (8.5-10.1) mg/dL Magnesium (1.8-2.4) mg/dl Ferritin (8-252) ng/ml Total Bilirubin (0.2-1.0) mg/dL AST (15-37) U/L ALT (14-59) U/L Alkaline Phosphatase (46-116) U/L Lactate Dehydrogenase (81-234) U/L Troponin I (0.00-0.056) ng/mL C-Reactive Protein 27.1 H* (<1.0) mg/dL NT-Pro-B Natriuret Pep (0-125) pg/mL Total Protein (6.4-8.2) g/dl Albumin (3.4-5.0) g/dl Globulin gm/dL Albumin/Globulin Ratio (1-2) 04/30/20 04/30/20 04/30/20 Range/Units 12:20 12:20 12:20 WBC (3.98-10.04) K/mm3 RBC (3.98-5.22) M/mm3 Hgb (11.2-15.7) gm/dl Hct (34.1-44.9) % MCV (79.4-94.8) fl MCH (25.6-32.2) pg MCHC (32.2-35.5) g/dl RDW Std Deviation (36.4-46.3) fL Plt Count (182-369) K/mm3 MPV (9.4-12.3) fl Neutrophils % (Manual) (40-60) % Band Neutrophils % (0-10) % Lymphocytes % (Manual) (20-40) % Atypical Lymphs % % Monocytes % (Manual) (2-10) % Eosinophils % (Manual) (0.7-5.8) % Basophils % (Manual) (0.1-1.2) Platelet Estimate RBC Morph Comment PT (9.7-12.0) SECONDS INR APTT (21.7-31.4) SECONDS D-Dimer, Quantitative (0.19-0.50) mg/L Sodium 139 (136-145) mEq/L Potassium 3.6 (3.5-5.1) mEq/L Chloride 100 (98-107) mEq/L Carbon Dioxide 29 (21-32) mEq/L Anion Gap 13.6 (5-15) BUN 16 (7-18) mg/dL Creatinine 1.0 (0.55-1.02) mg/dL Est Cr Clr Drug Dosing 45.14 mL/min Estimated GFR (MDRD) 57 (>60) mL/min BUN/Creatinine Ratio 16.0 (14-18) Glucose 122 H (74-106) mg/dL Lactic Acid (0.4-2.0) mmol/L Calcium 9.5 (8.5-10.1) mg/dL Magnesium 2.2 (1.8-2.4) mg/dl Ferritin 496 H (8-252) ng/ml Total Bilirubin 0.5 (0.2-1.0) mg/dL AST 23 (15-37) U/L ALT 25 (14-59) U/L Alkaline Phosphatase 69 (46-116) U/L Lactate Dehydrogenase 486 H (81-234) U/L Troponin I < 0.017 (0.00-0.056) ng/mL C-Reactive Protein (<1.0) mg/dL NT-Pro-B Natriuret Pep 304 H (0-125) pg/mL Total Protein 8.5 H (6.4-8.2) g/dl Albumin 3.1 L (3.4-5.0) g/dl Globulin 5.4 gm/dL Albumin/Globulin Ratio 0.6 L (1-2) 04/30/ Range/Units 12:20 WBC (3.98-10.04) K/mm3 RBC (3.98-5.22) M/mm3 Hgb (11.2-15.7) gm/dl Hct (34.1-44.9) % MCV (79.4-94.8) fl MCH (25.6-32.2) pg MCHC (32.2-35.5) g/dl RDW Std Deviation (36.4-46.3) fL Plt Count (182-369) K/mm3 MPV (9.4-12.3) fl Neutrophils % (Manual) (40-60) % Band Neutrophils % (0-10) % Lymphocytes % (Manual) (20-40) % Atypical Lymphs % % Monocytes % (Manual) (2-10) % Eosinophils % (Manual) (0.7-5.8) % Basophils % (Manual) (0.1-1.2) Platelet Estimate RBC Morph Comment PT (9.7-12.0) SECONDS INR APTT (21.7-31.4) SECONDS D-Dimer, Quantitative (0.19-0.50) mg/L Sodium (136-145) mEq/L Potassium (3.5-5.1) mEq/L Chloride (98-107) mEq/L Carbon Dioxide (21-32) mEq/L Anion Gap (5-15) BUN (7-18) mg/dL Creatinine (0.55-1.02) mg/dL Est Cr Clr Drug Dosing mL/min Estimated GFR (MDRD) (>60) mL/min BUN/Creatinine Ratio (14-18) Glucose (74-106) mg/dL Lactic Acid 1.4 (0.4-2.0) mmol/L Calcium (8.5-10.1) mg/dL Magnesium (1.8-2.4) mg/dl Ferritin (8-252) ng/ml Total Bilirubin (0.2-1.0) mg/dL AST (15-37) U/L ALT (14-59) U/L Alkaline Phosphatase (46-116) U/L Lactate Dehydrogenase (81-234) U/L Troponin I (0.00-0.056) ng/mL C-Reactive Protein (<1.0) mg/dL NT-Pro-B Natriuret Pep (0-125) pg/mL Total Protein (6.4-8.2) g/dl Albumin (3.4-5.0) g/dl Globulin gm/dL Albumin/Globulin Ratio (1-2) Result Diagrams: 04/30/20 12:20 04/30/20 12:20 John Results Last 24 hrs: Microbiology 04/30/20 12:25 Influenza Type A Antigen Screen - Final Nasopharyngeal Swab NEGATIVE INFLUENZA A VIRUS AG REFERENCE RANGE: NEGATIVE Influenza Type B Antigen Screen - Final NEGATIVE INFLUENZA B VIRUS AG REFERENCE RANGE: NEGATIVE Sepsis Event Note - Evaluation Sepsis Screening Result: No Definite Risk - Focused Exam Vital Signs: Vital Signs Temp Temp Pulse Pulse Resp BP BP 04/30/20 15:42 98.8 F 69 26 H 134/86 04/30/20 15:35 98.3 F 78 18 123/85 04/30/20 11:25 99.7 F 88 18 146/84 H Pulse Ox 04/30/20 15:42 91 L 04/30/20 15:35 97 04/30/20 11:25 75 L - Problem List (1) Pneumonia due to COVID-19 virus SNOMED Code(s): 291636140662571138 ICD Code: U07.1 - COVID-19; J12.89 - OTHER VIRAL PNEUMONIA Status: Acute Current Visit: Yes (2) COVID-19 SNOMED Code(s): 170677463 ICD Code: U07.1 - COVID-19 Status: Acute Current Visit: No Problem List Initiated/Reviewed/Updated: Yes Orders Last 24hrs: Active Orders 24 hr Category Date Time Status Admission Status [Patient Status] [ADT] Routine ADT 04/30/20 13:54 Active Oxygen Therapy [RC] PRN Care 04/30/20 16:53 Ordered Up ad Svetlana [RC] ASDIRECTED Care 04/30/20 16:52 Ordered VTE/DVT Education [RC] PER UNIT ROUTINE Care 04/30/20 16:53 Ordered Vital Signs [RC] Q4H Care 04/30/20 16:53 Ordered Respiratory Care Assess and Treatment [CONS] Routine Cons 04/30/20 16:52 Ordered Regular Diet [DIET] Diet 04/30/20 Dinner Ordered Chest 1V Frontal [CR] Stat Exams 04/30/20 12:00 Taken C-REACTIVE PROTEIN [CHEM] AM Lab 05/01/20 05:11 Ordered CBC WITH AUTO DIFF [HEME] AM Lab 05/01/20 05:11 Ordered CMP [COMPREHENSIVE METABOLIC PN,CMP] [CHEM] AM Lab 05/01/20 05:11 Ordered CULTURE BLOOD [BC] Stat Lab 04/30/20 12:20 Received CULTURE BLOOD [BC] Stat Lab 04/30/20 12:26 Received DD [D-DIMER QUANTITATIVE] [COAG] AM Lab 05/01/20 05:11 Ordered MAGNESIUM [CHEM] AM Lab 05/01/20 05:11 Ordered PHOSPHORUS [CHEM] AM Lab 05/01/20 05:11 Ordered Acetaminophen [TylenoL] Med 04/30/20 16:52 Ordered 650 mg PO Q4H PRN Ascorbic Acid/Ascorbate Sodium [Vitamin C 500 mg Wafer] Med 05/01/20 09:00 Ordered 1,000 mg PO DAILY Cholecalciferol (Vitamin D3) [Vitamin D3] Med 05/01/20 09:00 Ordered 1,000 unit PO DAILY LORazepam [Ativan] Med 04/30/20 17:04 Ordered 1 mg PO Q4H PRN Ondansetron [Zofran ODT] Med 04/30/20 16:56 Ordered 4 mg PO Q4H PRN Ondansetron [Zofran] Med 04/30/20 16:52 Ordered 4 mg IV Q4H PRN Remdesivir 100 mg Med 05/01/20 13:00 Ordered Sodium Chloride 0.9% [Normal Saline] 100 ml IV Q24H Sodium Chloride 0.9% [Saline Flush] Med 04/30/20 12:02 Active 10 ml FLUSH ASDIRECTED PRN buPROPion [Wellbutrin XL] Med 05/01/20 09:00 Ordered 150 mg PO DAILY cefTRIAXone [Rocephin] 2 gm Med 04/30/20 17:15 Ordered Sodium Chloride 0.9% [Normal Saline] 100 ml IV Q24H dexAMETHasone Med 05/01/20 13:00 Ordered 6 mg PO Q24H Blood Culture x2 Reflex Set [OM.PC] Stat Oth 04/30/20 12:01 Ordered Isolation [COMM] Routine Oth 04/30/20 12:00 Ordered Peripheral IV Insertion Adult [OM.PC] Routine Oth 04/30/20 12:03 Ordered Resuscitation Status Routine Resus Stat 04/30/20 16:52 Ordered Medication Orders Acetaminophen (Tylenol) 650 mg PO Q4H PRN PRN Reason: Pain (Mild 1-3)/fever Bupropion HCl (Wellbutrin Xl) 150 mg PO DAILY KINGSLEY Dexamethasone (Dexamethasone) 6 mg PO Q24H KINGSLEY Stop: 05/09/20 13:01 Remdesivir 100 mg/ Sodium (Chloride) 100 mls @ 100 mls/hr IV Q24H KINGSLEY Ceftriaxone Sodium 2 gm/ (Sodium Chloride) 100 mls @ 200 mls/hr IV Q24H KINGSLEY Stop: 05/04/20 17:44 Lorazepam (Ativan) 1 mg PO Q4H PRN PRN Reason: Anxiety Non-Formulary Medication (Ascorbic Acid/Ascorbate Sodium [Vitamin C 500 Mg Wafer]) 1,000 mg PO DAILY KINGSLEY Non-Formulary Medication (Cholecalciferol (Vitamin D3) [Vitamin D3]) 1,000 unit PO DAILY KINGSLEY Ondansetron HCl (Zofran) 4 mg IV Q4H PRN PRN Reason: Nausea/Vomiting Ondansetron HCl (Zofran Odt) 4 mg PO Q4H PRN PRN Reason: Nausea Sodium Chloride (Saline Flush) 10 ml FLUSH ASDIRECTED PRN PRN Reason: Keep Vein Open Last Admin: 04/30/20 12:20 Dose: 10 ml Documented by: SHARON Assessment/Plan Comment:: Assessment 59-year-old ex smoker with COVID-19 pneumonia * Symptoms started on April 18, 2012 days prior to admission * Received 5 days of Zithromax and dexamethasone prior to admission * Patient requiring 4 L of nasal cannula to keep her oxygen saturations in the low to mid 90s. * Chest x-ray shows bilateral infiltrates * Started on remdesivir today in the ED * She is too far out to benefit from convalescent plasma. * She stopped smoking 5 years ago but states that she smoked for many years prior. * Lab work showed pertinent positives and negatives of WBC 9.95 with only 1% bands, D-dimer 1.15, troponin I less than 0.017, LDH 486, BNP 304, ferritin 496, CRP 27 Renal insufficiency unknown chronic versus acute * GFR 57, creatinine 1.0, BUN 16 * Review of old records shows 2 separate occasions here GFR at 57 in 2016 and gr eater than 60 on 2017 Anxiety * She is on Wellbutrin as an outpatient * Symptoms of anxiety will likely worsen with dexamethasone and due to hospitalization. * She will likely need some anxiolytic to help with her anxiety especially initially. Plan * Admit to medical floor on continuous pulse ox * Encourage prone positioning * Continue remdesivir 100 mg daily for 4 additional days * Continue dexamethasone 6 mg daily for 5 additional days * FiO2 to keep SPO2 between 88 and 94%. * I-S and Acapella * Albuterol HFA 2 puffs every 4 hours as needed * Follow Covid related labs, follow kidney function * Ativan 1 mg p.o. every 2 hours as needed anxiety * Continue Wellbutrin * Aspirin 81 mg daily * Pepcid 20 mg twice daily * VTE prophylaxis with Lovenox * CODE STATUS full code - Mortality Measure Prognosis:: Good
[2020-04-30] MEDS ORDERED: Albuterol 6.7 GM Inhaler INH PRN (17:16)
[2020-04-30] MEDS: cefTRIAXone 2 GM in Sodium Chloride 0.9% 100 ML IV SCH (18:11)
[2020-04-30] MEDS: Famotidine 20 MG Tab PO SCH (21:14)
[2020-05-01 07:36] LABS: VITAMIN D,25-HYDROXY 28.3 ng/ml (30.0-100.0)
[2020-05-01] MEDS: Famotidine 20 MG Tab PO SCH ×2 (08:28→21:02)
[2020-05-01] MEDS: Aspirin 81 MG Tab.EC PO SCH (08:28)
[2020-05-01] MEDS: Ascorbic Acid 500 MG Tab PO SCH (08:28)
[2020-05-01] MEDS: Cholecalciferol (Vitamin D3) 25 MCG Tab PO SCH (08:29)
[2020-05-01] MEDS: buPROPion 150 MG Tab.ER PO SCH (08:30)
[2020-05-01] MEDS ORDERED: Enoxaparin 40 MG/0.4 ML Syringe SUBCUT SCH ×2 (09:00→21:00)
--- NOTE | 2020-05-01 12:36 | PCM.PN ---
- General Info Date of Service: 05/01/20 Admission Dx/Problem (Free Text): Admission Diagnosis/Problem Admission Diagnosis/Problem Hypoxia Subjective Update: No overnight issues. She slept on and off last night. She was nauseous early this morning but resolved with zofran. Functional Status: Reports: Pain Controlled - Review of Systems General: Reports: Weakness, Fatigue. Denies: Fever, Chills HEENT: Denies: Contact Lenses Pulmonary: Reports: Shortness of Breath, Cough Cardiovascular: Reports: Dyspnea on Exertion. Denies: Chest Pain Gastrointestinal: Denies: Abdominal Pain, Nausea, Vomiting Genitourinary: Reports: Burning Musculoskeletal: Denies: Joint Pain Skin: Denies: Rash Neurological: Denies: No Symptoms Psychiatric: Denies: Depression, Anxiety - Patient Data Vitals - Most Recent: Last Vital Signs Temp 36.6 C 05/01/20 07:54 Pulse 69 05/01/20 07:54 Resp 16 05/01/20 07:54 BP 100/75 05/01/20 07:54 Pulse Ox 92 L 05/01/20 11:34 Weight - Most Recent: 83.915 kg I&O - Last 24 Hours: Intake & Output 04/30/20 05/01/20 05/01/20 22:59 06:59 14:59 Intake Total 240 400 300 Output Total 650 Balance 240 -250 300 Lab Results Last 24 Hours: Laboratory Results - last 24 hr 04/30/20 04/30/20 04/30/20 Range/Units 12:20 12:20 12:20 WBC 9.95 (3.98-10.04) K/mm3 RBC 4.82 (3.98-5.22) M/mm3 Hgb 14.1 D (11.2-15.7) gm/dl Hct 41.4 (34.1-44.9) % MCV 85.9 D (79.4-94.8) fl MCH 29.3 (25.6-32.2) pg MCHC 34.1 (32.2-35.5) g/dl RDW Std Deviation 42.9 (36.4-46.3) fL Plt Count 340 D (182-369) K/mm3 MPV 9.9 (9.4-12.3) fl Neut % (Auto) (34.0-71.1) % Lymph % (Auto) (19.3-51.7) % [place] % (Auto) (4.7-12.5) % Eos % (Auto) (0.7-5.8) Baso % (Auto) (0.1-1.2) % Neut # (Auto) (1.56-6.13) K/mm3 Lymph # (Auto) (1.18-3.74) K/mm3 [place] # (Auto) (0.24-0.36) K/mm3 Eos # (Auto) (0.04-0.36) K/mm3 Baso # (Auto) (0.01-0.08) K/mm3 Neutrophils % (Manual) 89 H (40-60) % Band Neutrophils % 1 (0-10) % Lymphocytes % (Manual) 5 L (20-40) % Atypical Lymphs % 0 % Monocytes % (Manual) 5 (2-10) % Eosinophils % (Manual) 0 L (0.7-5.8) % Basophils % (Manual) 0 L (0.1-1.2) Manual Slide Review Platelet Estimate Adequate RBC Morph Comment Normal PT 10.4 (9.7-12.0) SECONDS INR 0.97 APTT 24.5 (21.7-31.4) SECONDS D-Dimer, Quantitative 1.15 H (0.19-0.50) mg/L Sodium (136-145) mEq/L Potassium (3.5-5.1) mEq/L Chloride (98-107) mEq/L Carbon Dioxide (21-32) mEq/L Anion Gap (5-15) BUN (7-18) mg/dL Creatinine (0.55-1.02) mg/dL Est Cr Clr Drug Dosing mL/min Estimated GFR (MDRD) (>60) mL/min BUN/Creatinine Ratio (14-18) Glucose (74-106) mg/dL Lactic Acid (0.4-2.0) mmol/L Calcium (8.5-10.1) mg/dL Phosphorus (2.6-4.7) mg/dL Magnesium (1.8-2.4) mg/dl Ferritin (8-252) ng/ml Total Bilirubin (0.2-1.0) mg/dL AST (15-37) U/L ALT (14-59) U/L Alkaline Phosphatase (46-116) U/L Lactate Dehydrogenase (81-234) U/L Troponin I (0.00-0.056) ng/mL C-Reactive Protein 27.1 H* (<1.0) mg/dL NT-Pro-B Natriuret Pep (0-125) pg/mL Total Protein (6.4-8.2) g/dl Albumin (3.4-5.0) g/dl Globulin gm/dL Albumin/Globulin Ratio (1-2) Vitamin D 25-Hydroxy (30.0-100.0) ng/ml Urine Color (Yellow) Urine Appearance (Clear) Urine pH (5.0-8.0) Ur Specific [place] (1.005-1.030) Urine Protein (Negative) Urine Glucose (UA) (Negative) Urine Ketones (Negative) Urine Occult Blood (Negative) Urine Nitrite (Negative) Urine Bilirubin (Negative) Urine Urobilinogen (0.2-1.0) Ur Leukocyte Esterase (Negative) 04/30/20 04/30/20 04/30/20 Range/Units 12:20 12:20 12:20 WBC (3.98-10.04) K/mm3 RBC (3.98-5.22) M/mm3 Hgb (11.2-15.7) gm/dl Hct (34.1-44.9) % MCV (79.4-94.8) fl MCH (25.6-32.2) pg MCHC (32.2-35.5) g/dl RDW Std Deviation (36.4-46.3) fL Plt Count (182-369) K/mm3 MPV (9.4-12.3) fl Neut % (Auto) (34.0-71.1) % Lymph % (Auto) (19.3-51.7) % [place] % (Auto) (4.7-12.5) % Eos % (Auto) (0.7-5.8) Baso % (Auto) (0.1-1.2) % Neut # (Auto) (1.56-6.13) K/mm3 Lymph # (Auto) (1.18-3.74) K/mm3 [place] # (Auto) (0.24-0.36) K/mm3 Eos # (Auto) (0.04-0.36) K/mm3 Baso # (Auto) (0.01-0.08) K/mm3 Neutrophils % (Manual) (40-60) % Band Neutrophils % (0-10) % Lymphocytes % (Manual) (20-40) % Atypical Lymphs % % Monocytes % (Manual) (2-10) % Eosinophils % (Manual) (0.7-5.8) % Basophils % (Manual) (0.1-1.2) Manual Slide Review Platelet Estimate RBC Morph Comment PT (9.7-12.0) SECONDS INR APTT (21.7-31.4) SECONDS D-Dimer, Quantitative (0.19-0.50) mg/L Sodium 139 (136-145) mEq/L Potassium 3.6 (3.5-5.1) mEq/L Chloride 100 (98-107) mEq/L Carbon Dioxide 29 (21-32) mEq/L Anion Gap 13.6 (5-15) BUN 16 (7-18) mg/dL Creatinine 1.0 (0.55-1.02) mg/dL Est Cr Clr Drug Dosing 45.14 mL/min Estimated GFR (MDRD) 57 (>60) mL/min BUN/Creatinine Ratio 16.0 (14-18) Glucose 122 H (74-106) mg/dL Lactic Acid (0.4-2.0) mmol/L Calcium 9.5 (8.5-10.1) mg/dL Phosphorus (2.6-4.7) mg/dL Magnesium 2.2 (1.8-2.4) mg/dl Ferritin 496 H (8-252) ng/ml Total Bilirubin 0.5 (0.2-1.0) mg/dL AST 23 (15-37) U/L ALT 25 (14-59) U/L Alkaline Phosphatase 69 (46-116) U/L Lactate Dehydrogenase 486 H (81-234) U/L Troponin I < 0.017 (0.00-0.056) ng/mL C-Reactive Protein (<1.0) mg/dL NT-Pro-B Natriuret Pep 304 H (0-125) pg/mL Total Protein 8.5 H (6.4-8.2) g/dl Albumin 3.1 L (3.4-5.0) g/dl Globulin 5.4 gm/dL Albumin/Globulin Ratio 0.6 L (1-2) Vitamin D 25-Hydroxy (30.0-100.0) ng/ml Urine Color (Yellow) Urine Appearance (Clear) Urine pH (5.0-8.0) Ur Specific [place] (1.005-1.030) Urine Protein (Negative) Urine Glucose (UA) (Negative) Urine Ketones (Negative) Urine Occult Blood (Negative) Urine Nitrite (Negative) Urine Bilirubin (Negative) Urine Urobilinogen (0.2-1.0) Ur Leukocyte Esterase (Negative) 04/30/20 05/01/20 05/01/20 Range/Units 12:20 05:27 05:27 WBC 5.97 (3.98-10.04) K/mm3 RBC 4.27 (3.98-5.22) M/mm3 Hgb 12.3 D (11.2-15.7) gm/dl Hct 37.0 (34.1-44.9) % MCV 86.7 (79.4-94.8) fl MCH 28.8 (25.6-32.2) pg MCHC 33.2 (32.2-35.5) g/dl RDW Std Deviation 43.1 (36.4-46.3) fL Plt Count 306 (182-369) K/mm3 MPV 10.1 (9.4-12.3) fl Neut % (Auto) 77.6 H (34.0-71.1) % Lymph % (Auto) 16.9 L (19.3-51.7) % [place] % (Auto) 5.2 (4.7-12.5) % Eos % (Auto) 0 L (0.7-5.8) Baso % (Auto) 0.3 (0.1-1.2) % Neut # (Auto) 4.63 (1.56-6.13) K/mm3 Lymph # (Auto) 1.01 L (1.18-3.74) K/mm3 [place] # (Auto) 0.31 (0.24-0.36) K/mm3 Eos # (Auto) 0.00 L (0.04-0.36) K/mm3 Baso # (Auto) 0.02 (0.01-0.08) K/mm3 Neutrophils % (Manual) (40-60) % Band Neutrophils % (0-10) % Lymphocytes % (Manual) (20-40) % Atypical Lymphs % % Monocytes % (Manual) (2-10) % Eosinophils % (Manual) (0.7-5.8) % Basophils % (Manual) (0.1-1.2) Manual Slide Review Normal smear Platelet Estimate RBC Morph Comment PT (9.7-12.0) SECONDS INR APTT (21.7-31.4) SECONDS D-Dimer, Quantitative 0.72 H (0.19-0.50) mg/L Sodium (136-145) mEq/L Potassium (3.5-5.1) mEq/L Chloride (98-107) mEq/L Carbon Dioxide (21-32) mEq/L Anion Gap (5-15) BUN (7-18) mg/dL Creatinine (0.55-1.02) mg/dL Est Cr Clr Drug Dosing mL/min Estimated GFR (MDRD) (>60) mL/min BUN/Creatinine Ratio (14-18) Glucose (74-106) mg/dL Lactic Acid 1.4 (0.4-2.0) mmol/L Calcium (8.5-10.1) mg/dL Phosphorus (2.6-4.7) mg/dL Magnesium (1.8-2.4) mg/dl Ferritin (8-252) ng/ml Total Bilirubin (0.2-1.0) mg/dL AST (15-37) U/L ALT (14-59) U/L Alkaline Phosphatase (46-116) U/L Lactate Dehydrogenase (81-234) U/L Troponin I (0.00-0.056) ng/mL C-Reactive Protein (<1.0) mg/dL NT-Pro-B Natriuret Pep (0-125) pg/mL Total Protein (6.4-8.2) g/dl Albumin (3.4-5.0) g/dl Globulin gm/dL Albumin/Globulin Ratio (1-2) Vitamin D 25-Hydroxy (30.0-100.0) ng/ml Urine Color (Yellow) Urine Appearance (Clear) Urine pH (5.0-8.0) Ur Specific [place] (1.005-1.030) Urine Protein (Negative) Urine Glucose (UA) (Negative) Urine Ketones (Negative) Urine Occult Blood (Negative) Urine Nitrite (Negative) Urine Bilirubin (Negative) Urine Urobilinogen (0.2-1.0) Ur Leukocyte Esterase (Negative) 05/01/20 05/01/20 Range/Units 05:27 11:37 WBC (3.98-10.04) K/mm3 RBC (3.98-5.22) M/mm3 Hgb (11.2-15.7) gm/dl Hct (34.1-44.9) % MCV (79.4-94.8) fl MCH (25.6-32.2) pg MCHC (32.2-35.5) g/dl RDW Std Deviation (36.4-46.3) fL Plt Count (182-369) K/mm3 MPV (9.4-12.3) fl Neut % (Auto) (34.0-71.1) % Lymph % (Auto) (19.3-51.7) % [place] % (Auto) (4.7-12.5) % Eos % (Auto) (0.7-5.8) Baso % (Auto) (0.1-1.2) % Neut # (Auto) (1.56-6.13) K/mm3 Lymph # (Auto) (1.18-3.74) K/mm3 [place] # (Auto) (0.24-0.36) K/mm3 Eos # (Auto) (0.04-0.36) K/mm3 Baso # (Auto) (0.01-0.08) K/mm3 Neutrophils % (Manual) (40-60) % Band Neutrophils % (0-10) % Lymphocytes % (Manual) (20-40) % Atypical Lymphs % % Monocytes % (Manual) (2-10) % Eosinophils % (Manual) (0.7-5.8) % Basophils % (Manual) (0.1-1.2) Manual Slide Review Platelet Estimate RBC Morph Comment PT (9.7-12.0) SECONDS INR APTT (21.7-31.4) SECONDS D-Dimer, Quantitative (0.19-0.50) mg/L Sodium 139 (136-145) mEq/L Potassium 3.9 (3.5-5.1) mEq/L Chloride 102 (98-107) mEq/L Carbon Dioxide 25 (21-32) mEq/L Anion Gap 15.9 H (5-15) BUN 18 (7-18) mg/dL Creatinine 0.9 (0.55-1.02) mg/dL Est Cr Clr Drug Dosing 50.16 mL/min Estimated GFR (MDRD) > 60 (>60) mL/min BUN/Creatinine Ratio 20.0 H (14-18) Glucose 129 H (74-106) mg/dL Lactic Acid (0.4-2.0) mmol/L Calcium 8.7 (8.5-10.1) mg/dL Phosphorus 3.5 (2.6-4.7) mg/dL Magnesium 2.2 (1.8-2.4) mg/dl Ferritin (8-252) ng/ml Total Bilirubin 0.3 (0.2-1.0) mg/dL AST 19 (15-37) U/L ALT 24 (14-59) U/L Alkaline Phosphatase 56 (46-116) U/L Lactate Dehydrogenase (81-234) U/L Troponin I (0.00-0.056) ng/mL C-Reactive Protein 18.1 H* (<1.0) mg/dL NT-Pro-B Natriuret Pep (0-125) pg/mL Total Protein 7.2 (6.4-8.2) g/dl Albumin 2.6 L (3.4-5.0) g/dl Globulin 4.6 gm/dL Albumin/Globulin Ratio 0.6 L (1-2) Vitamin D 25-Hydroxy 28.3 L (30.0-100.0) ng/ml Urine Color Yellow (Yellow) Urine Appearance Clear (Clear) Urine pH 6.0 (5.0-8.0) Ur Specific [place] > or = 1.030 (1.005-1.030) Urine Protein Negative (Negative) Urine Glucose (UA) Negative (Negative) Urine Ketones Negative (Negative) Urine Occult Blood Negative (Negative) Urine Nitrite Negative (Negative) Urine Bilirubin Negative (Negative) Urine Urobilinogen 0.2 (0.2-1.0) Ur Leukocyte Esterase Negative (Negative) John Results Last 24 Hours: Microbiology 04/30/20 12:26 Aerobic Blood Culture - Preliminary Blood - Venous - Lab Draw NO GROWTH AFTER 1 DAY Anaerobic Blood Culture - Preliminary NO GROWTH AFTER 1 DAY 04/30/20 12:20 Aerobic Blood Culture - Preliminary Blood - Venous NO GROWTH AFTER 1 DAY Anaerobic Blood Culture - Preliminary NO GROWTH AFTER 1 DAY 04/30/20 12:25 Influenza Type A Antigen Screen - Final Nasopharyngeal Swab NEGATIVE INFLUENZA A VIRUS AG REFERENCE RANGE: NEGATIVE Influenza Type B Antigen Screen - Final NEGATIVE INFLUENZA B VIRUS AG REFERENCE RANGE: NEGATIVE Med Orders - Current: Current Medications Acetaminophen (Tylenol) 650 mg PO Q4H PRN PRN Reason: Pain (Mild 1-3)/fever Albuterol (Proventil Hfa) 0 gm INH Q4H PRN PRN Reason: Wheezing Last Admin: 04/30/20 17:47 Dose: 2 inhalation Documented by: Ascorbic Acid (Vitamin C) 1,000 mg PO DAILY [facility] Last Admin: 05/01/20 08:28 Dose: 1,000 mg Documented by: Aspirin (Halfprin) 81 mg PO DAILY [facility] Last Admin: 05/01/20 08:28 Dose: 81 mg Documented by: Bupropion HCl (Wellbutrin Xl) 150 mg PO DAILY [facility] Last Admin: 05/01/20 08:30 Dose: 150 mg Documented by: Cholecalciferol (Vitamin D3) 25 mcg PO DAILY [facility] Last Admin: 05/01/20 08:29 Dose: 25 mcg Documented by: Dexamethasone (Dexamethasone) 6 mg PO Q24H [facility] Stop: 05/05/20 13:01 Enoxaparin Sodium (Lovenox) 40 mg SUBCUT DAILY [facility] Last Admin: 05/01/20 08:27 Dose: 40 mg Documented by: Famotidine (Pepcid) 20 mg PO BID [facility] Last Admin: 05/01/20 08:28 Dose: 20 mg Documented by: Remdesivir 100 mg/ Sodium (Chloride) 100 mls @ 100 mls/hr IV Q24H [facility] Ceftriaxone Sodium 2 gm/ (Sodium Chloride) 100 mls @ 200 mls/hr IV Q24H [facility] Stop: 05/04/20 18:29 Last Admin: 04/30/20 18:11 Dose: 200 mls/hr Documented by: Lorazepam (Ativan) 1 mg PO Q4H PRN PRN Reason: Anxiety Melatonin (Melatonin) 6 mg PO BEDTIME PRN PRN Reason: Insomnia Ondansetron HCl (Zofran) 4 mg IV Q4H PRN PRN Reason: Nausea/Vomiting Ondansetron HCl (Zofran Odt) 4 mg PO Q4H PRN PRN Reason: Nausea Last Admin: 05/01/20 08:28 Dose: 4 mg Documented by: Phenazopyridine HCl (Urinary Pain Relief) 95 mg PO TIDPC [facility] Stop: 05/03/20 13:01 Sodium Chloride (Saline Flush) 10 ml FLUSH ASDIRECTED PRN PRN Reason: Keep Vein Open Last Admin: 04/30/20 12:20 Dose: 10 ml Documented by: Discontinued Medications Azithromycin (Zithromax) 250 mg PO ONETIME ONE Stop: 04/30/20 13:42 Last Admin: 04/30/20 14:27 Dose: 250 mg Documented by: Dexamethasone (Decadron) 6 mg IVPUSH ONETIME ONE Stop: 04/30/20 13:42 Last Admin: 04/30/20 14:24 Dose: 6 mg Documented by: Dexamethasone (Dexamethasone) 6 mg PO Q24H [facility] Stop: 05/09/20 13:01 Remdesivir 200 mg/ Sodium (Chloride) 250 mls @ 250 mls/hr IV ONETIME ONE Stop: 04/30/20 13:33 Last Admin: 04/30/20 14:33 Dose: 250 mls/hr Documented by: - Exam Quality Assessment: Supplemental Oxygen. No: Urine Catheter General: Alert, Oriented, Cooperative HEENT: Pupils Equal, Pupils Reactive, EOMI, Mucous Membr. Moist/[place] Neck: Supple Lungs: Normal Respiratory Effort, Decreased Breath Sounds Cardiovascular: Regular Rate, Regular Rhythm GI/Abdominal Exam: Normal Bowel Sounds, Soft, Non-Tender, No Organomegaly, No Distention, No Abnormal Bruit (Female) Exam: Deferred Back Exam: Normal Inspection, Decreased Range of Motion Extremities: Normal Inspection, Normal Range of Motion, Non-Tender, No Pedal Edema, Normal Capillary Refill Peripheral Pulses: 2+: Dorsalis Pedis (L), Dorsalis Pedis (R) Skin: Warm, Dry, Intact Neurological: No New Focal Deficit Psy/Mental Status: Alert, Normal Affect, Normal Mood Sepsis Event Note - Evaluation Sepsis Screening Result: No Definite Risk - Focused Exam Vital Signs: Vital Signs Temp Pulse Resp BP Pulse Ox Pulse Ox 05/01/20 11:34 92 L 05/01/20 08:32 89 L 05/01/20 07:54 36.6 C 69 16 100/75 05/01/20 06:40 93 L 05/01/20 05:30 36.7 C 66 14 114/73 92 L - Problem List Review Problem List Initiated/Reviewed/Updated: Yes - My Orders Last 24 Hours: My Active Orders 05/01/20 13:00 Phenazopyridine [Urinary Pain Relief] 95 mg PO TIDPC - Plan Plan:: Assessment Acute: Covid-19 Infection Viral pneumonitis Hypoxia on 3-4L NC Elevated D-Dimer of 1.15 Hyperglycemia Elevated CRP of 18.1 Hypoalbuminemia with Albumin of 2.6 Vitamin D Deficiency Anxiety Class II Obese Chronic: Impaired hearing Seasonal Allergies HTN HLD Urinary Incontinence vertigo GERD Eczema Constipation Obesity Plan * Continue current treatment * Completed Azithromycin * Rocephin 1/5, Dexamethasone 1/5, Lovenox 40 mg subQ daily, Remdesivir 2/5 * Encourage prone positioning * Received dexamethasone 6 mg daily outpatient * FiO2 to keep SPO2 between 88 and 94%. * IS and Acapella as directed with bedside pulmonary exercise * Albuterol HFA 2 puffs every 4 hours as needed * Follow Covid related labs, follow kidney function * Ativan 1 mg p.o. every 2 hours as needed anxiety * Ambulate inside her room as much as she can * VTE prophylaxis with Lovenox * Continue zinc gluconate home dose * CODE STATUS full code
[2020-05-01] MEDS ORDERED: Dexamethasone 4 MG Tab PO SCH (13:00)
[2020-05-01] MEDS: Phenazopyridine 95 MG Tab PO SCH ×2 (14:19→18:08)
[2020-05-01] MEDS: Dexamethasone 4 MG Tab PO SCH (14:19)
[2020-05-01] MEDS: REMDESIVIR 100 MG in Sodium Chloride 0.9% 100 ML IV SCH (14:19)
[2020-05-01] MEDS: cefTRIAXone 2 GM in Sodium Chloride 0.9% 100 ML IV SCH (18:08)
[2020-05-01] MEDS: Melatonin 3 MG Tab PO PRN (21:02)
--- NOTE | 2020-05-02 08:01 | PCM.PN ---
- General Info Date of Service: 05/02/20 Admission Dx/Problem (Free Text): Admission Diagnosis/Problem Admission Diagnosis/Problem Hypoxia Subjective Update: No overnight issues. She rested well last night. Labs look good this morning. Repeat chest x-ray shows no worsening of multilobar pneumonia. She is still on 5L NC. Functional Status: Reports: Pain Controlled - Review of Systems General: Reports: Chills. Denies: Fever HEENT: Denies: Sore Throat Pulmonary: Reports: Shortness of Breath, Cough Cardiovascular: Denies: Chest Pain Gastrointestinal: Reports: Diarrhea. Denies: Abdominal Pain, Nausea, Vomiting Genitourinary: Reports: Dysuria (mild) Musculoskeletal: Denies: Joint Pain Skin: Denies: Rash Neurological: Denies: Weakness Psychiatric: Denies: Depression, Anxiety - Patient Data Vitals - Most Recent: Last Vital Signs Temp 36.4 C 05/02/20 04:11 Pulse 65 05/02/20 04:11 Resp 14 05/02/20 04:11 BP 115/69 05/02/20 04:11 Pulse Ox 97 05/02/20 06:20 Weight - Most Recent: 84.504 kg I&O - Last 24 Hours: Intake & Output 05/01/20 05/02/20 05/02/20 22:59 06:59 14:59 Intake Total 800 600 Output Total 400 975 Balance 400 -375 Lab Results Last 24 Hours: Laboratory Results - last 24 hr 05/01/20 05/02/20 05/02/20 Range/Units 11:37 04:56 04:56 WBC 5.39 (3.98-10.04) K/mm3 RBC 4.20 (3.98-5.22) M/mm3 Hgb 12.3 (11.2-15.7) gm/dl Hct 36.8 (34.1-44.9) % MCV 87.6 (79.4-94.8) fl MCH 29.3 (25.6-32.2) pg MCHC 33.4 (32.2-35.5) g/dl RDW Std Deviation 44.4 (36.4-46.3) fL Plt Count 351 (182-369) K/mm3 MPV 10.2 (9.4-12.3) fl Neut % (Auto) 75.4 H (34.0-71.1) % Lymph % (Auto) 17.3 L (19.3-51.7) % [place] % (Auto) 6.7 (4.7-12.5) % Eos % (Auto) 0 L (0.7-5.8) Baso % (Auto) 0.6 (0.1-1.2) % Neut # (Auto) 4.07 (1.56-6.13) K/mm3 Lymph # (Auto) 0.93 L (1.18-3.74) K/mm3 [place] # (Auto) 0.36 (0.24-0.36) K/mm3 Eos # (Auto) 0.00 L (0.04-0.36) K/mm3 Baso # (Auto) 0.03 (0.01-0.08) K/mm3 Sodium 141 (136-145) mEq/L Potassium 4.0 (3.5-5.1) mEq/L Chloride 104 (98-107) mEq/L Carbon Dioxide 27 (21-32) mEq/L Anion Gap 14.0 (5-15) BUN 20 H (7-18) mg/dL Creatinine 1.0 (0.55-1.02) mg/dL Est Cr Clr Drug Dosing 45.14 mL/min Estimated GFR (MDRD) 57 (>60) mL/min BUN/Creatinine Ratio 20.0 H (14-18) Glucose 135 H (74-106) mg/dL Calcium 8.8 (8.5-10.1) mg/dL C-Reactive Protein 8.7 H* (<1.0) mg/dL Urine Color Yellow (Yellow) Urine Appearance Clear (Clear) Urine pH 6.0 (5.0-8.0) Ur Specific [place] > or = 1.030 (1.005-1.030) Urine Protein Negative (Negative) Urine Glucose (UA) Negative (Negative) Urine Ketones Negative (Negative) Urine Occult Blood Negative (Negative) Urine Nitrite Negative (Negative) Urine Bilirubin Negative (Negative) Urine Urobilinogen 0.2 (0.2-1.0) Ur Leukocyte Esterase Negative (Negative) John Results Last 24 Hours: Microbiology 04/30/20 12:26 Aerobic Blood Culture - Preliminary Blood - Venous - Lab Draw NO GROWTH AFTER 1 DAY Anaerobic Blood Culture - Preliminary NO GROWTH AFTER 1 DAY 04/30/20 12:20 Aerobic Blood Culture - Preliminary Blood - Venous NO GROWTH AFTER 1 DAY Anaerobic Blood Culture - Preliminary NO GROWTH AFTER 1 DAY Med Orders - Current: Current Medications Acetaminophen (Tylenol) 650 mg PO Q4H PRN PRN Reason: Pain (Mild 1-3)/fever Albuterol (Proventil Hfa) 0 gm INH Q4H PRN PRN Reason: Wheezing Last Admin: 04/30/20 17:47 Dose: 2 inhalation Documented by: Ascorbic Acid (Vitamin C) 1,000 mg PO DAILY [facility] Last Admin: 05/01/20 08:28 Dose: 1,000 mg Documented by: Aspirin (Halfprin) 81 mg PO DAILY [facility] Last Admin: 05/01/20 08:28 Dose: 81 mg Documented by: Bupropion HCl (Wellbutrin Xl) 150 mg PO DAILY [facility] Last Admin: 05/01/20 08:30 Dose: 150 mg Documented by: Cholecalciferol (Vitamin D3) 25 mcg PO DAILY [facility] Last Admin: 05/01/20 08:29 Dose: 25 mcg Documented by: Dexamethasone (Dexamethasone) 6 mg PO Q24H [facility] Stop: 05/05/20 13:01 Last Admin: 05/01/20 14:19 Dose: 6 mg Documented by: Enoxaparin Sodium (Lovenox) 40 mg SUBCUT DAILY [facility] Famotidine (Pepcid) 20 mg PO BID [facility] Last Admin: 05/01/20 21:02 Dose: 20 mg Documented by: Remdesivir 100 mg/ Sodium (Chloride) 100 mls @ 100 mls/hr IV Q24H [facility] Last Admin: 05/01/20 14:19 Dose: 100 mls/hr Documented by: Ceftriaxone Sodium 2 gm/ (Sodium Chloride) 100 mls @ 200 mls/hr IV Q24H [facility] Stop: 05/04/20 18:29 Last Admin: 05/01/20 18:08 Dose: 200 mls/hr Documented by: Lorazepam (Ativan) 1 mg PO Q4H PRN PRN Reason: Anxiety Melatonin (Melatonin) 6 mg PO BEDTIME PRN PRN Reason: Insomnia Last Admin: 05/01/20 21:02 Dose: 6 mg Documented by: Non-Formulary Medication (Zinc Gluconate) 50 mg PO DAILY [facility] Ondansetron HCl (Zofran) 4 mg IV Q4H PRN PRN Reason: Nausea/Vomiting Ondansetron HCl (Zofran Odt) 4 mg PO Q4H PRN PRN Reason: Nausea Last Admin: 05/01/20 08:28 Dose: 4 mg Documented by: Phenazopyridine HCl (Urinary Pain Relief) 95 mg PO TIDPC [facility] Stop: 05/03/20 13:01 Last Admin: 05/01/20 18:08 Dose: 95 mg Documented by: Sodium Chloride (Saline Flush) 10 ml FLUSH ASDIRECTED PRN PRN Reason: Keep Vein Open Last Admin: 04/30/20 12:20 Dose: 10 ml Documented by: Discontinued Medications Azithromycin (Zithromax) 250 mg PO ONETIME ONE Stop: 04/30/20 13:42 Last Admin: 04/30/20 14:27 Dose: 250 mg Documented by: Dexamethasone (Decadron) 6 mg IVPUSH ONETIME ONE Stop: 04/30/20 13:42 Last Admin: 04/30/20 14:24 Dose: 6 mg Documented by: Dexamethasone (Dexamethasone) 6 mg PO Q24H [facility] Stop: 05/09/20 13:01 Enoxaparin Sodium (Lovenox) 40 mg SUBCUT DAILY [facility] Last Admin: 05/01/20 08:27 Dose: 40 mg Documented by: Enoxaparin Sodium (Lovenox) 40 mg SUBCUT BID [facility] Remdesivir 200 mg/ Sodium (Chloride) 250 mls @ 250 mls/hr IV ONETIME ONE Stop: 04/30/20 13:33 Last Admin: 04/30/20 14:33 Dose: 250 mls/hr Documented by: - Exam Quality Assessment: Supplemental Oxygen General: Alert, Oriented, Cooperative, No Acute Distress HEENT: Pupils Equal, Pupils Reactive, EOMI, Mucous Membr. Moist/[place]oyal Neck: Supple Lungs: Normal Respiratory Effort, Decreased Breath Sounds Cardiovascular: Regular Rate, Regular Rhythm GI/Abdominal Exam: Normal Bowel Sounds, Soft, Non-Tender, No Organomegaly, No Distention, No Abnormal Bruit (Female) Exam: Deferred Back Exam: Normal Inspection, Decreased Range of Motion Extremities: Normal Inspection, Normal Range of Motion, Non-Tender, No Pedal Edema, Normal Capillary Refill Peripheral Pulses: 2+: Dorsalis Pedis (L), Dorsalis Pedis (R) Skin: Warm, Dry, Intact Neurological: No New Focal Deficit Psy/Mental Status: Alert, Normal Affect, Normal Mood Sepsis Event Note - Evaluation Sepsis Screening Result: No Definite Risk - Focused Exam Vital Signs: Vital Signs Temp Pulse Resp BP Pulse Ox Pulse Ox 05/02/20 06:20 97 05/02/20 04:16 91 L 05/02/20 04:11 36.4 C 65 14 115/69 86 L 05/01/20 21:00 36.6 C 68 13 121/80 94 L - Problem List Review Problem List Initiated/Reviewed/Updated: Yes - My Orders Last 24 Hours: My Active Orders 05/01/20 13:00 Phenazopyridine [Urinary Pain Relief] 95 mg PO TIDPC 05/02/20 04:56 CBC WITH AUTO DIFF [HEME] DAILY 05/02/20 06:00 Chest 1V Frontal [CR] Routine 05/02/20 09:00 Enoxaparin [Lovenox] 40 mg SUBCUT DAILY Zinc Gluconate 50 mg PO DAILY 05/03/20 05:00 BMP [BASIC METABOLIC PANEL,BMP] [CHEM] DAILY CBC WITH AUTO DIFF [HEME] DAILY CRP [C-REACTIVE PROTEIN] [CHEM] DAILY 05/04/20 05:00 BMP [BASIC METABOLIC PANEL,BMP] [CHEM] DAILY CBC WITH AUTO DIFF [HEME] DAILY CRP [C-REACTIVE PROTEIN] [CHEM] DAILY - Plan Plan:: Assessment Acute: Covid-19 Infection Viral pneumonitis Hypoxia on 3-4L NC Elevated D-Dimer of 1.15 Hyperglycemia Elevated CRP of 18.1 Hypoalbuminemia with Albumin of 2.6 Vitamin D Deficiency Anxiety Class II Obese Chronic: Impaired hearing Seasonal Allergies HTN HLD Urinary Incontinence vertigo GERD Eczema Constipation Obesity Plan * Continue current treatment * Completed Azithromycin * Rocephin 2/5, Dexamethasone 2/5, Lovenox 40 mg subQ daily, Remdesivir 3/5 * Encourage prone positioning * Received dexamethasone 6 mg daily outpatient * FiO2 to keep SPO2 between 88 and 94%. * IS and Acapella as directed with bedside pulmonary exercise * Albuterol HFA 2 puffs every 4 hours as needed * Follow Covid related labs, follow kidney function * Ativan 1 mg p.o. every 2 hours as needed anxiety * Ambulate inside her room as much as she can * VTE prophylaxis with Lovenox * Continue zinc gluconate home dose * CODE STATUS full code 1334: Called and updated about her clinical progress and answered all his questions. Encourage social media contact to lift up her spirits.
[2020-05-02] MEDS: Phenazopyridine 95 MG Tab PO SCH ×3 (08:57→18:05)
[2020-05-02] MEDS: Ascorbic Acid 500 MG Tab PO SCH (08:57)
[2020-05-02] MEDS: Enoxaparin 40 MG/0.4 ML Syringe SUBCUT SCH (08:57)
[2020-05-02] MEDS: Famotidine 20 MG Tab PO SCH ×2 (08:58→20:36)
[2020-05-02] MEDS: buPROPion 150 MG Tab.ER PO SCH (08:58)
[2020-05-02] MEDS: Aspirin 81 MG Tab.EC PO SCH (08:58)
[2020-05-02] MEDS: Cholecalciferol (Vitamin D3) 25 MCG Tab PO SCH (08:58)
[2020-05-02] MEDS: Dexamethasone 4 MG Tab PO SCH (12:51)
[2020-05-02] MEDS: REMDESIVIR 100 MG in Sodium Chloride 0.9% 100 ML IV SCH (12:52)
[2020-05-02] MEDS: Acetaminophen 325 MG Tab PO PRN (12:53)
[2020-05-02] MEDS: guaiFENesin/Dextromethorphan 100-10 MG/5 ML Soln 5 ML Cup PO PRN (17:30)
[2020-05-02] MEDS: cefTRIAXone 2 GM in Sodium Chloride 0.9% 100 ML IV SCH (17:31)
[2020-05-02] MEDS: Melatonin 3 MG Tab PO PRN (20:37)
--- NOTE | 2020-05-03 07:43 | PCM.PN ---
- General Info Date of Service: 05/03/20 Admission Dx/Problem (Free Text): Admission Diagnosis/Problem Admission Diagnosis/Problem Hypoxia Subjective Update: In to see Nancy. She is lying in bed. reports she feels slightly more short of breath than before. Oxygen is currently at 5L. Labs have trended down appropriately. She has been eating but reports significant diarrhea. States she had very poor oral intake prior to coming in. Has been ambulating in room. Will add PT/OT. Will remain hospitalized until completion of COVID-19 treatment. Functional Status: Reports: Pain Controlled, Tolerating Diet (has diarrhea ), Ambulating, Urinating, Incentive Spirometry, Other (acapella ). Denies: New Symptoms - Review of Systems General: Reports: Weakness, Fatigue, Malaise. Denies: Fever, Chills HEENT: Reports: No Symptoms. Denies: Eye Pain, Headaches, Sinus Congestion, Sore Throat, Visual Changes Pulmonary: Reports: Shortness of Breath, Cough, Sputum. Denies: Pleuritic Chest Pain, Hemoptysis, Wheezing Cardiovascular: Reports: No Symptoms, Dyspnea on Exertion. Denies: Chest Pain, Palpitations, Edema Gastrointestinal: Reports: Diarrhea. Denies: Abdominal Pain, Constipation, Decreased Appetite, Nausea, Vomiting Genitourinary: Reports: No Symptoms. Denies: Pain Musculoskeletal: Reports: No Symptoms Skin: Reports: No Symptoms. Denies: Cyanosis Neurological: Reports: Weakness. Denies: Confusion, Numbness, Seizure, Tingling, Difficulty Walking, Gait Disturbance Psychiatric: Reports: No Symptoms - Patient Data Vitals - Most Recent: Last Vital Signs Temp 97.9 F 05/03/20 04:43 Pulse 65 05/03/20 04:43 Resp 13 05/03/20 04:43 BP 125/62 05/03/20 04:43 Pulse Ox 91 L 05/03/20 04:43 Weight - Most Recent: 187 lb 1.6 oz I&O - Last 24 Hours: Intake & Output 05/02/20 05/03/20 05/03/20 22:59 06:59 14:59 Intake Total 1440 500 Output Total 951 Balance 1440 -451 Lab Results Last 24 Hours: Laboratory Results - last 24 hr 05/02/20 05/03/20 05/03/20 Range/Units 04:56 05:21 05:21 WBC 6.17 (3.98-10.04) K/mm3 RBC 4.17 (3.98-5.22) M/mm3 Hgb 12.2 (11.2-15.7) gm/dl Hct 36.5 (34.1-44.9) % MCV 87.5 (79.4-94.8) fl MCH 29.3 (25.6-32.2) pg MCHC 33.4 (32.2-35.5) g/dl RDW Std Deviation 44.1 (36.4-46.3) fL Plt Count 380 H (182-369) K/mm3 MPV 9.9 (9.4-12.3) fl Neut % (Auto) 77.2 H (34.0-71.1) % Lymph % (Auto) 16.9 L (19.3-51.7) % [place] % (Auto) 5.7 (4.7-12.5) % Eos % (Auto) 0 L (0.7-5.8) Baso % (Auto) 0.2 (0.1-1.2) % Neut # (Auto) 4.77 (1.56-6.13) K/mm3 Lymph # (Auto) 1.04 L (1.18-3.74) K/mm3 [place] # (Auto) 0.35 (0.24-0.36) K/mm3 Eos # (Auto) 0.00 L (0.04-0.36) K/mm3 Baso # (Auto) 0.01 (0.01-0.08) K/mm3 Manual Slide Review Normal smear Normal smear Sodium 141 (136-145) mEq/L Potassium 3.9 (3.5-5.1) mEq/L Chloride 104 (98-107) mEq/L Carbon Dioxide 25 (21-32) mEq/L Anion Gap 15.9 H (5-15) BUN 16 (7-18) mg/dL Creatinine 0.8 (0.55-1.02) mg/dL Est Cr Clr Drug Dosing 56.43 mL/min Estimated GFR (MDRD) > 60 (>60) mL/min BUN/Creatinine Ratio 20.0 H (14-18) Glucose 138 H (74-106) mg/dL Calcium 8.3 L (8.5-10.1) mg/dL C-Reactive Protein 5.2 H* (<1.0) mg/dL Jhon Results Last 24 Hours: Microbiology 04/30/20 12:26 Aerobic Blood Culture - Preliminary Blood - Venous - Lab Draw NO GROWTH AFTER 2 DAYS Anaerobic Blood Culture - Preliminary NO GROWTH AFTER 2 DAYS 04/30/20 12:20 Aerobic Blood Culture - Preliminary Blood - Venous NO GROWTH AFTER 2 DAYS Anaerobic Blood Culture - Preliminary NO GROWTH AFTER 2 DAYS Med Orders - Current: Current Medications Acetaminophen (Tylenol) 650 mg PO Q4H PRN PRN Reason: Pain (Mild 1-3)/fever Last Admin: 05/02/20 12:53 Dose: 650 mg Documented by: Albuterol (Proventil Hfa) 0 gm INH Q4H PRN PRN Reason: Wheezing Last Admin: 04/30/20 17:47 Dose: 2 inhalation Documented by: Ascorbic Acid (Vitamin C) 1,000 mg PO DAILY [facility] Last Admin: 05/02/20 08:57 Dose: 1,000 mg Documented by: Aspirin (Halfprin) 81 mg PO DAILY [facility] Last Admin: 05/02/20 08:58 Dose: 81 mg Documented by: Bupropion HCl (Wellbutrin Xl) 150 mg PO DAILY [facility] Last Admin: 05/02/20 08:58 Dose: 150 mg Documented by: Cholecalciferol (Vitamin D3) 25 mcg PO DAILY [facility] Last Admin: 05/02/20 08:58 Dose: 25 mcg Documented by: Dexamethasone (Dexamethasone) 6 mg PO Q24H [facility] Stop: 05/05/20 13:01 Last Admin: 05/02/20 12:51 Dose: 6 mg Documented by: Enoxaparin Sodium (Lovenox) 40 mg SUBCUT DAILY [facility] Last Admin: 05/02/20 08:57 Dose: 40 mg Documented by: Famotidine (Pepcid) 20 mg PO BID [facility] Last Admin: 05/02/20 20:36 Dose: 20 mg Documented by: Guaifenesin/Phenylephrine HCl (Robitussin Dm) 10 ml PO Q4H PRN PRN Reason: Cough Last Admin: 05/02/20 17:30 Dose: 10 ml Documented by: Remdesivir 100 mg/ Sodium (Chloride) 100 mls @ 100 mls/hr IV Q24H [facility] Last Admin: 05/02/20 12:52 Dose: 100 mls/hr Documented by: Ceftriaxone Sodium 2 gm/ (Sodium Chloride) 100 mls @ 200 mls/hr IV Q24H [facility] Stop: 05/04/20 18:29 Last Admin: 05/02/20 17:31 Dose: 200 mls/hr Documented by: Lorazepam (Ativan) 1 mg PO Q4H PRN PRN Reason: Anxiety Melatonin (Melatonin) 6 mg PO BEDTIME PRN PRN Reason: Insomnia Last Admin: 05/02/20 20:37 Dose: 6 mg Documented by: Ondansetron HCl (Zofran) 4 mg IV Q4H PRN PRN Reason: Nausea/Vomiting Ondansetron HCl (Zofran Odt) 4 mg PO Q4H PRN PRN Reason: Nausea Last Admin: 05/01/20 08:28 Dose: 4 mg Documented by: Phenazopyridine HCl (Urinary Pain Relief) 95 mg PO TIDPC [facility] Stop: 05/03/20 13:01 Last Admin: 05/02/20 18:05 Dose: 95 mg Documented by: Sodium Chloride (Saline Flush) 10 ml FLUSH ASDIRECTED PRN PRN Reason: Keep Vein Open Last Admin: 04/30/20 12:20 Dose: 10 ml Documented by: Zinc Sulfate (Zincate) 220 mg PO DAILY [facility] Discontinued Medications Azithromycin (Zithromax) 250 mg PO ONETIME ONE Stop: 04/30/20 13:42 Last Admin: 04/30/20 14:27 Dose: 250 mg Documented by: Dexamethasone (Decadron) 6 mg IVPUSH ONETIME ONE Stop: 04/30/20 13:42 Last Admin: 04/30/20 14:24 Dose: 6 mg Documented by: Dexamethasone (Dexamethasone) 6 mg PO Q24H [facility] Stop: 05/09/20 13:01 Enoxaparin Sodium (Lovenox) 40 mg SUBCUT DAILY [facility] Last Admin: 05/01/20 08:27 Dose: 40 mg Documented by: Enoxaparin Sodium (Lovenox) 40 mg SUBCUT BID [facility] Remdesivir 200 mg/ Sodium (Chloride) 250 mls @ 250 mls/hr IV ONETIME ONE Stop: 04/30/20 13:33 Last Admin: 04/30/20 14:33 Dose: 250 mls/hr Documented by: - Exam Quality Assessment: Supplemental Oxygen, DVT Prophylaxis. No: Urine Catheter General: Alert, Oriented, Cooperative, No Acute Distress HEENT: Pupils Equal, Pupils Reactive, Mucous Membr. Moist/[place] Neck: Supple, Trachea Midline Lungs: Clear to Auscultation, Normal Respiratory Effort, Decreased Breath Sounds Cardiovascular: Regular Rate, Regular Rhythm GI/Abdominal Exam: Soft, Non-Tender, No Distention, Abnormal Bowel Sounds (hyperactive ) (Female) Exam: Deferred Back Exam: Normal Inspection, Full Range of Motion Extremities: Normal Inspection, Normal Range of Motion, Non-Tender, No Pedal Edema, Normal Capillary Refill Peripheral Pulses: 2+: Dorsalis Pedis (L), Dorsalis Pedis (R), 3+: Radial (L), Radial (R) Skin: Warm, Dry, Intact Neurological: No New Focal Deficit Psy/Mental Status: Alert, Normal Affect, Normal Mood, Depressed (refusing further workup) Sepsis Event Note - Evaluation Sepsis Screening Result: No Definite Risk - Focused Exam Vital Signs: Vital Signs Temp Temp Pulse Pulse Resp BP BP 05/03/20 04:43 97.9 F 65 13 125/62 05/03/20 00:00 05/02/20 20:00 98.2 F 76 12 112/76 Pulse Ox 05/03/20 04:43 91 L 05/03/20 00:00 91 L 05/02/20 20:00 92 L - Problem List & Annotations (1) Pneumonia due to COVID-19 virus SNOMED Code(s): 681856142459040044 Code(s): U07.1 - COVID-19; J12.89 - OTHER VIRAL PNEUMONIA Status: Acute Priority: High Current Visit: Yes (2) COVID-19 SNOMED Code(s): 934304380 Code(s): U07.1 - COVID-19 Status: Acute Priority: High Current Visit: Yes (3) Hypoxia SNOMED Code(s): 754759620 Code(s): R09.02 - HYPOXEMIA Status: Acute Priority: High Current Visit: Yes (4) Weakness SNOMED Code(s): 24112377 Code(s): R53.1 - WEAKNESS Status: Acute Priority: High Current Visit: Yes - Problem List Review Problem List Initiated/Reviewed/Updated: Yes - Plan Plan:: Assessment Acute: Covid-19 Infection Viral pneumonitis Hypoxia on 5L [place] Elevated D-Dimer of 1.15 Hyperglycemia - stable Elevated CRP of 27.1-->18.1-->8.7-->5.2 Hypoalbuminemia with Albumin of 2.6 Vitamin D Deficiency Anxiety Class II Obese Chronic: Impaired hearing Seasonal Allergies HTN HLD Urinary Incontinence vertigo GERD Eczema Constipation Obesity Plan * Continue current treatment * Completed Azithromycin * Rocephin 3/, Dexamethasone 3/, Lovenox 40 mg subQ daily, Remdesivir 3 * Encourage prone positioning * Received dexamethasone 6 mg daily outpatient * FiO2 to keep SPO2 between 88 and 94%. * IS and Acapella as directed with bedside pulmonary exercise * Albuterol HFA 2 puffs every 4 hours as needed * Follow Covid related labs, follow kidney function * Ativan 1 mg p.o. every 2 hours as needed anxiety * Ambulate inside her room as much as she can * VTE prophylaxis with Lovenox * Continue zinc gluconate home dose * Start PT/OT for strengthening * CODE STATUS full code * LOS >96 Hrs due to need for continued COVID-19 treatment.
[2020-05-03] MEDS: guaiFENesin/Dextromethorphan 100-10 MG/5 ML Soln 5 ML Cup PO PRN ×2 (09:50→18:53)
[2020-05-03] MEDS: Cholecalciferol (Vitamin D3) 25 MCG Tab PO SCH (09:51)
[2020-05-03] MEDS: Phenazopyridine 95 MG Tab PO SCH ×2 (09:51→13:41)
[2020-05-03] MEDS: Enoxaparin 40 MG/0.4 ML Syringe SUBCUT SCH (09:51)
[2020-05-03] MEDS: Famotidine 20 MG Tab PO SCH ×2 (09:51→20:13)
[2020-05-03] MEDS: Ascorbic Acid 500 MG Tab PO SCH (09:51)
[2020-05-03] MEDS: Aspirin 81 MG Tab.EC PO SCH (09:51)
[2020-05-03] MEDS: buPROPion 150 MG Tab.ER PO SCH (09:52)
[2020-05-03] MEDS: Zinc Sulfate 220 MG Cap PO SCH (09:52)
[2020-05-03] MEDS: Acetaminophen 325 MG Tab PO PRN ×2 (09:57→18:53)
--- NOTE | 2020-05-03 10:23 | CR ---
PROCEDURE INFORMATION: Exam: XR Chest, 1 View Exam date and time: 04/30/2020 11:53 AM Age: 59 years old Clinical indication: Other: Covid ++ x 12 days, hypoxic; Patient HX: Covid == x 12 days, hypoxic TECHNIQUE: Imaging protocol: XR of the chest Views: 1 view. COMPARISON: No relevant prior studies available. FINDINGS: Lungs: Peripheral areas of interstitial prominence in both mid and lower lungs consistent with infiltrate. Pleural space: Unremarkable. No pleural effusion. No pneumothorax. Heart/Mediastinum: Cardiomegaly. Bones/joints: Left shoulder arthroplasty. Degenerate arthritis in the spine. IMPRESSION: Bilateral pulmonary infiltrates. Thank you for allowing us to participate in the care of your patient. Dictated and Authenticated by: Sarah Stanton MD 04/30/2020 1:24 PM Central Time ([place] & [place]) [place]
--- NOTE | 2020-05-03 12:46 | CR ---
PROCEDURE INFORMATION: Exam: XR Chest, 1 View Exam date and time: 05/02/2020 7:27 AM Age: 59 years old Clinical indication: Condition or disease; Other: Covid-19 positive TECHNIQUE: Imaging protocol: XR of the chest Views: 1 view. COMPARISON: CR Chest 1V Frontal 04/30/2020 11:53 AM FINDINGS: Lungs: There remains multifocal peripheral airspace opacity within the lungs which appears to be stable. This is compatible the patient's known COVID-19 infection. No new airspace opacity or pulmonary edema present. Pleural space: Unremarkable. No pleural effusion. No pneumothorax. Heart/Mediastinum: Heart size is moderately prominent. Bones/joints: Unremarkable. IMPRESSION: Stable multilobar pneumonia compared to the patient's known COVID-19 infection. No progression has occurred. Thank you for allowing us to participate in the care of your patient. Dictated and Authenticated by: Gilberto Landon MD 05/02/2020 10:11 AM Central Time ([place] & [place]) [place]
[2020-05-03] MEDS: Dexamethasone 4 MG Tab PO SCH (13:41)
[2020-05-03] MEDS: REMDESIVIR 100 MG in Sodium Chloride 0.9% 100 ML IV SCH (13:42)
[2020-05-03] MEDS: cefTRIAXone 2 GM in Sodium Chloride 0.9% 100 ML IV SCH (18:53)
[2020-05-03] MEDS: Melatonin 3 MG Tab PO PRN (20:20)
--- NOTE | 2020-05-04 07:26 | PCM.PN ---
- General Info Date of Service: 05/04/20 Admission Dx/Problem (Free Text): Admission Diagnosis/Problem Admission Diagnosis/Problem Hypoxia Subjective Update: In to see Nancy. She is still on 5L O2 via [place]. She reports she feels somewhat weaker today. She has been up ambulating in room. Reports continued diarrhea that was most active overnight. Continuing pulmonary exercises. She should finish COVID treatment tomorrow, with many of her medications finishing today. Functional Status: Reports: Pain Controlled, Tolerating Diet, Ambulating, Urinating, Incentive Spirometry. Denies: New Symptoms - Review of Systems General: Reports: No Symptoms, Weakness, Fatigue, Malaise. Denies: Fever, Chills HEENT: Reports: No Symptoms. Denies: Headaches, Sore Throat Pulmonary: Reports: Shortness of Breath, Cough. Denies: Sputum, Wheezing Cardiovascular: Reports: Dyspnea on Exertion. Denies: Chest Pain, Palpitations, Edema, Lightheadedness Gastrointestinal: Reports: Diarrhea. Denies: Abdominal Pain, Constipation, Nausea, Vomiting Genitourinary: Reports: No Symptoms. Denies: Pain Musculoskeletal: Reports: No Symptoms Skin: Reports: No Symptoms. Denies: Cyanosis Neurological: Reports: No Symptoms. Denies: Confusion, Difficulty Walking, Gait Disturbance Psychiatric: Reports: No Symptoms - Patient Data Vitals - Most Recent: Last Vital Signs Temp 98.1 F 05/04/20 04:54 Pulse 62 05/04/20 04:54 Resp 16 05/04/20 04:54 BP 109/64 05/04/20 04:54 Pulse Ox 89 L 05/04/20 04:54 Weight - Most Recent: 184 lb 11.2 oz I&O - Last 24 Hours: Intake & Output 05/03/20 05/04/20 05/04/20 22:59 06:59 14:59 Intake Total 940 200 Output Total 400 Balance 940 -200 Lab Results Last 24 Hours: Laboratory Results - last 24 hr 05/04/20 05/04/20 Range/Units 05:42 05:42 WBC 6.87 (3.98-10.04) K/mm3 RBC 4.25 (3.98-5.22) M/mm3 Hgb 12.0 (11.2-15.7) gm/dl Hct 37.7 (34.1-44.9) % MCV 88.7 (79.4-94.8) fl MCH 28.2 (25.6-32.2) pg MCHC 31.8 L (32.2-35.5) g/dl RDW Std Deviation 44.0 (36.4-46.3) fL Plt Count 419 H (182-369) K/mm3 MPV 9.5 (9.4-12.3) fl Neut % (Auto) 75.0 H (34.0-71.1) % Lymph % (Auto) 16.9 L (19.3-51.7) % [place] % (Auto) 5.5 (4.7-12.5) % Eos % (Auto) 0 L (0.7-5.8) Baso % (Auto) 0.3 (0.1-1.2) % Neut # (Auto) 5.15 (1.56-6.13) K/mm3 Lymph # (Auto) 1.16 L (1.18-3.74) K/mm3 [place] # (Auto) 0.38 H (0.24-0.36) K/mm3 Eos # (Auto) 0.00 L (0.04-0.36) K/mm3 Baso # (Auto) 0.02 (0.01-0.08) K/mm3 Manual Slide Review Normal smear Sodium 140 (136-145) mEq/L Potassium 4.1 (3.5-5.1) mEq/L Chloride 105 (98-107) mEq/L Carbon Dioxide 27 (21-32) mEq/L Anion Gap 12.1 (5-15) BUN 15 (7-18) mg/dL Creatinine 0.8 (0.55-1.02) mg/dL Est Cr Clr Drug Dosing 56.43 mL/min Estimated GFR (MDRD) > 60 (>60) mL/min BUN/Creatinine Ratio 18.8 H (14-18) Glucose 136 H (74-106) mg/dL Calcium 8.5 (8.5-10.1) mg/dL C-Reactive Protein 3.6 H* (<1.0) mg/dL John Results Last 24 Hours: Microbiology 04/30/20 12:26 Aerobic Blood Culture - Preliminary Blood - Venous - Lab Draw NO GROWTH AFTER 3 DAYS Anaerobic Blood Culture - Preliminary NO GROWTH AFTER 3 DAYS 04/30/20 12:20 Aerobic Blood Culture - Preliminary Blood - Venous NO GROWTH AFTER 3 DAYS Anaerobic Blood Culture - Preliminary NO GROWTH AFTER 3 DAYS Med Orders - Current: Current Medications Acetaminophen (Tylenol) 650 mg PO Q4H PRN PRN Reason: Pain (Mild 1-3)/fever Last Admin: 05/03/20 18:53 Dose: 650 mg Documented by: Albuterol (Proventil Hfa) 0 gm INH Q4H PRN PRN Reason: Wheezing Last Admin: 04/30/20 17:47 Dose: 2 inhalation Documented by: Ascorbic Acid (Vitamin C) 1,000 mg PO DAILY [facility] Last Admin: 05/03/20 09:51 Dose: 1,000 mg Documented by: Aspirin (Halfprin) 81 mg PO DAILY [facility] Last Admin: 05/03/20 09:51 Dose: 81 mg Documented by: Bupropion HCl (Wellbutrin Xl) 150 mg PO DAILY [facility] Last Admin: 05/03/20 09:52 Dose: 150 mg Documented by: Cholecalciferol (Vitamin D3) 25 mcg PO DAILY [facility] Last Admin: 05/03/20 09:51 Dose: 25 mcg Documented by: Dexamethasone (Dexamethasone) 6 mg PO Q24H [facility] Stop: 05/05/20 13:01 Last Admin: 05/03/20 13:41 Dose: 6 mg Documented by: Enoxaparin Sodium (Lovenox) 40 mg SUBCUT DAILY [facility] Last Admin: 05/03/20 09:51 Dose: 40 mg Documented by: Famotidine (Pepcid) 20 mg PO BID [facility] Last Admin: 05/03/20 20:13 Dose: 20 mg Documented by: Guaifenesin/Phenylephrine HCl (Robitussin Dm) 10 ml PO Q4H PRN PRN Reason: Cough Last Admin: 05/03/20 18:53 Dose: 10 ml Documented by: Remdesivir 100 mg/ Sodium (Chloride) 100 mls @ 100 mls/hr IV Q24H [facility] Stop: 05/04/20 13:59 Last Admin: 05/03/20 13:42 Dose: 100 mls/hr Documented by: Ceftriaxone Sodium 2 gm/ (Sodium Chloride) 100 mls @ 200 mls/hr IV Q24H [facility] Stop: 05/04/20 18:29 Last Admin: 05/03/20 18:53 Dose: 200 mls/hr Documented by: Lorazepam (Ativan) 1 mg PO Q4H PRN PRN Reason: Anxiety Melatonin (Melatonin) 6 mg PO BEDTIME PRN PRN Reason: Insomnia Last Admin: 05/03/20 20:20 Dose: 6 mg Documented by: Ondansetron HCl (Zofran) 4 mg IV Q4H PRN PRN Reason: Nausea/Vomiting Ondansetron HCl (Zofran Odt) 4 mg PO Q4H PRN PRN Reason: Nausea Last Admin: 05/01/20 08:28 Dose: 4 mg Documented by: Sodium Chloride (Saline Flush) 10 ml FLUSH ASDIRECTED PRN PRN Reason: Keep Vein Open Last Admin: 04/30/20 12:20 Dose: 10 ml Documented by: Zinc Sulfate (Zincate) 220 mg PO DAILY [facility] Last Admin: 05/03/20 09:52 Dose: 220 mg Documented by: Discontinued Medications Azithromycin (Zithromax) 250 mg PO ONETIME ONE Stop: 04/30/20 13:42 Last Admin: 04/30/20 14:27 Dose: 250 mg Documented by: Dexamethasone (Decadron) 6 mg IVPUSH ONETIME ONE Stop: 04/30/20 13:42 Last Admin: 04/30/20 14:24 Dose: 6 mg Documented by: Dexamethasone (Dexamethasone) 6 mg PO Q24H [facility] Stop: 05/09/20 13:01 Enoxaparin Sodium (Lovenox) 40 mg SUBCUT DAILY [facility] Last Admin: 05/01/20 08:27 Dose: 40 mg Documented by: Enoxaparin Sodium (Lovenox) 40 mg SUBCUT BID [facility] Remdesivir 200 mg/ Sodium (Chloride) 250 mls @ 250 mls/hr IV ONETIME ONE Stop: 04/30/20 13:33 Last Admin: 04/30/20 14:33 Dose: 250 mls/hr Documented by: Phenazopyridine HCl (Urinary Pain Relief) 95 mg PO TIDPC [facility] Stop: 05/03/20 13:01 Last Admin: 05/03/20 13:41 Dose: 95 mg Documented by: - Exam Quality Assessment: Supplemental Oxygen (5L ), DVT Prophylaxis General: Alert, Oriented, Cooperative, No Acute Distress HEENT: Pupils Equal, Pupils Reactive, Mucous Membr. Moist/[place] Neck: Supple, Trachea Midline Lungs: Normal Respiratory Effort, Decreased Breath Sounds Cardiovascular: Regular Rate, Regular Rhythm GI/Abdominal Exam: Normal Bowel Sounds, Soft, Non-Tender, No Distention (Female) Exam: Deferred Back Exam: Normal Inspection, Full Range of Motion Extremities: Normal Inspection, Normal Range of Motion, Non-Tender, No Pedal Edema, Normal Capillary Refill Skin: Warm, Dry, Intact Neurological: No New Focal Deficit Psy/Mental Status: Alert, Normal Affect, Normal Mood Sepsis Event Note - Evaluation Sepsis Screening Result: No Definite Risk - Focused Exam Vital Signs: Vital Signs Temp Pulse Resp BP Pulse Ox 05/04/20 04:54 98.1 F 62 16 109/64 89 L 05/04/20 00:41 97.9 F 65 16 123/79 90 L 05/03/20 20:16 98.2 F 69 16 108/76 91 L - Problem List & Annotations (1) Pneumonia due to COVID-19 virus SNOMED Code(s): 854514406464525977 Code(s): U07.1 - COVID-19; J12.89 - OTHER VIRAL PNEUMONIA Status: Acute Priority: High Current Visit: Yes (2) COVID-19 SNOMED Code(s): 487302199 Code(s): U07.1 - COVID-19 Status: Acute Priority: High Current Visit: Yes (3) Hypoxia SNOMED Code(s): 419858238 Code(s): R09.02 - HYPOXEMIA Status: Acute Priority: High Current Visit: Yes (4) Weakness SNOMED Code(s): 81277444 Code(s): R53.1 - WEAKNESS Status: Acute Priority: High Current Visit: Yes (5) Diarrhea SNOMED Code(s): 91110634 Code(s): R19.7 - DIARRHEA, UNSPECIFIED Status: Acute Priority: Medium Current Visit: Yes Qualifiers: Diarrhea type: unspecified type Qualified Code(s): R19.7 - Diarrhea, unspecified - Problem List Review Problem List Initiated/Reviewed/Updated: Yes - My Orders Last 24 Hours: My Active Orders 05/03/20 13:04 Consult to Occupational Therapy [OT Evaluation and Treatment] [CONS] Routine PT Evaluation and Treatment [CONS] Routine - Plan Plan:: Assessment Acute: Covid-19 Infection Diarrhea 2/2 COVID-19 Viral pneumonitis Hypoxia on 5L [place] Elevated D-Dimer of 1.15 Hyperglycemia - stable Elevated CRP of 27.1-->18.1-->8.7-->5.2 Hypoalbuminemia with Albumin of 2.6 Vitamin D Deficiency Anxiety Class II Obese Chronic: Impaired hearing Seasonal Allergies HTN HLD Urinary Incontinence vertigo GERD Eczema Constipation Obesity Plan * Continue current treatment * Completed Azithromycin * Rocephin finishing today, Dexamethasone finishing tomorrow, Lovenox 40 mg subQ daily, Remdesivir finishing today * Encourage prone positioning * Received dexamethasone 6 mg daily outpatient * FiO2 to keep SPO2 between 88 and 94%. * IS and Acapella as directed with bedside pulmonary exercise * Albuterol HFA 2 puffs every 4 hours as needed * Follow Covid related labs, follow kidney function * Ativan 1 mg p.o. every 2 hours as needed anxiety * Ambulate inside her room as much as she can * VTE prophylaxis with Lovenox * Continue zinc gluconate home dose * PT/OT for strengthening * CODE STATUS full code * LOS >96 Hrs due to need for continued COVID-19 treatment.
[2020-05-04] MEDS: Enoxaparin 40 MG/0.4 ML Syringe SUBCUT SCH (09:34)
[2020-05-04] MEDS: Zinc Sulfate 220 MG Cap PO SCH (09:35)
[2020-05-04] MEDS: Famotidine 20 MG Tab PO SCH ×2 (09:35→20:20)
[2020-05-04] MEDS: Ascorbic Acid 500 MG Tab PO SCH (09:35)
[2020-05-04] MEDS: Aspirin 81 MG Tab.EC PO SCH (09:35)
[2020-05-04] MEDS: buPROPion 150 MG Tab.ER PO SCH (09:35)
[2020-05-04] MEDS: Cholecalciferol (Vitamin D3) 25 MCG Tab PO SCH (09:35)
[2020-05-04] MEDS: Acetaminophen 325 MG Tab PO PRN ×2 (12:27→20:20)
[2020-05-04] MEDS: Dexamethasone 4 MG Tab PO SCH (12:28)
[2020-05-04] MEDS: REMDESIVIR 100 MG in Sodium Chloride 0.9% 100 ML IV SCH (12:29)
[2020-05-04] MEDS: cefTRIAXone 2 GM in Sodium Chloride 0.9% 100 ML IV SCH (17:46)
--- NOTE | 2020-05-05 08:45 | PCM.PN ---
- General Info Date of Service: 05/05/20 Admission Dx/Problem (Free Text): Admission Diagnosis/Problem Admission Diagnosis/Problem Hypoxia Subjective Update: In to see Nancy. She continues to do well and feels better today. She is still requiring 5L of oxygen via [place]. RT is attempting to wean. She completed COVID-19 treatment today however there is still concerns with discharging her given her respiratory status. Will continue current plan with aggressive pulmonary toilet. Functional Status: Reports: Pain Controlled, Tolerating Diet, Ambulating, Urinating, Incentive Spirometry, Other (acapella ). Denies: New Symptoms - Review of Systems General: Reports: Weakness, Fatigue. Denies: Fever, Malaise, Chills HEENT: Denies: Headaches, Sore Throat Pulmonary: Reports: Shortness of Breath. Denies: Pleuritic Chest Pain, Cough, Sputum, Wheezing Cardiovascular: Reports: Dyspnea on Exertion. Denies: Chest Pain, Palpitations Gastrointestinal: Reports: Diarrhea (improving ). Denies: Abdominal Pain, Constipation, Nausea, Vomiting Genitourinary: Reports: No Symptoms. Denies: Pain Musculoskeletal: Reports: No Symptoms Skin: Reports: No Symptoms Neurological: Reports: No Symptoms, Gait Disturbance. Denies: Confusion, Difficulty Walking Psychiatric: Reports: No Symptoms - Patient Data Vitals - Most Recent: Last Vital Signs Temp 97.3 F 05/05/20 08:07 Pulse 62 05/05/20 08:07 Resp 20 05/05/20 08:07 BP 106/79 05/05/20 08:07 Pulse Ox 87 L 05/05/20 08:07 Weight - Most Recent: 187 lb 4.8 oz I&O - Last 24 Hours: Intake & Output 05/04/20 05/05/20 05/05/20 22:59 06:59 14:59 Intake Total 695 100 Output Total 600 200 Balance 95 -100 Lab Results Last 24 Hours: Laboratory Results - last 24 hr 05/05/20 05/05/20 05/05/20 Range/Units 04:40 04:40 04:40 WBC 7.95 (3.98-10.04) K/mm3 RBC 4.19 (3.98-5.22) M/mm3 Hgb 11.7 (11.2-15.7) gm/dl Hct 37.3 (34.1-44.9) % MCV 89.0 (79.4-94.8) fl MCH 27.9 (25.6-32.2) pg MCHC 31.4 L (32.2-35.5) g/dl RDW Std Deviation 44.8 (36.4-46.3) fL Plt Count 440 H (182-369) K/mm3 MPV 9.8 (9.4-12.3) fl Neut % (Auto) 76.1 H (34.0-71.1) % Lymph % (Auto) 16.2 L (19.3-51.7) % [place] % (Auto) 5.0 (4.7-12.5) % Eos % (Auto) 0 L (0.7-5.8) Baso % (Auto) 0.3 (0.1-1.2) % Neut # (Auto) 6.05 (1.56-6.13) K/mm3 Lymph # (Auto) 1.29 (1.18-3.74) K/mm3 [place]lin # (Auto) 0.40 H (0.24-0.36) K/mm3 Eos # (Auto) 0.00 L (0.04-0.36) K/mm3 Baso # (Auto) 0.02 (0.01-0.08) K/mm3 Manual Slide Review Normal smear D-Dimer, Quantitative 0.72 H (0.19-0.50) mg/L Sodium 139 (136-145) mEq/L Potassium 4.4 (3.5-5.1) mEq/L Chloride 104 (98-107) mEq/L Carbon Dioxide 27 (21-32) mEq/L Anion Gap 12.4 (5-15) BUN 17 (7-18) mg/dL Creatinine 0.8 (0.55-1.02) mg/dL Est Cr Clr Drug Dosing 56.43 mL/min Estimated GFR (MDRD) > 60 (>60) mL/min BUN/Creatinine Ratio 21.3 H (14-18) Glucose 144 H (74-106) mg/dL Calcium 8.6 (8.5-10.1) mg/dL Magnesium 2.1 (1.8-2.4) mg/dl C-Reactive Protein 2.4 H* (<1.0) mg/dL John Results Last 24 Hours: Microbiology 04/30/20 12:26 Aerobic Blood Culture - Preliminary Blood - Venous - Lab Draw NO GROWTH AFTER 4 DAYS Anaerobic Blood Culture - Preliminary NO GROWTH AFTER 4 DAYS 04/30/20 12:20 Aerobic Blood Culture - Preliminary Blood - Venous NO GROWTH AFTER 4 DAYS Anaerobic Blood Culture - Preliminary NO GROWTH AFTER 4 DAYS Med Orders - Current: Current Medications Acetaminophen (Tylenol) 650 mg PO Q4H PRN PRN Reason: Pain (Mild 1-3)/fever Last Admin: 05/04/20 20:20 Dose: 650 mg Documented by: Albuterol (Proventil Hfa) 0 gm INH Q4H PRN PRN Reason: Wheezing Last Admin: 04/30/20 17:47 Dose: 2 inhalation Documented by: Ascorbic Acid (Vitamin C) 1,000 mg PO DAILY [facility] Last Admin: 05/04/20 09:35 Dose: 1,000 mg Documented by: Aspirin (Halfprin) 81 mg PO DAILY [facility] Last Admin: 05/04/20 09:35 Dose: 81 mg Documented by: Bupropion HCl (Wellbutrin Xl) 150 mg PO DAILY [facility] Last Admin: 05/04/20 09:35 Dose: 150 mg Documented by: Cholecalciferol (Vitamin D3) 25 mcg PO DAILY [facility] Last Admin: 05/04/20 09:35 Dose: 25 mcg Documented by: Dexamethasone (Dexamethasone) 6 mg PO Q24H [facility] Stop: 05/05/20 13:01 Last Admin: 05/04/20 12:28 Dose: 6 mg Documented by: Enoxaparin Sodium (Lovenox) 40 mg SUBCUT DAILY [facility] Last Admin: 05/04/20 09:34 Dose: 40 mg Documented by: Famotidine (Pepcid) 20 mg PO BID [facility] Last Admin: 05/04/20 20:20 Dose: 20 mg Documented by: Guaifenesin/Phenylephrine HCl (Robitussin Dm) 10 ml PO Q4H PRN PRN Reason: Cough Last Admin: 05/03/20 18:53 Dose: 10 ml Documented by: Lorazepam (Ativan) 1 mg PO Q4H PRN PRN Reason: Anxiety Melatonin (Melatonin) 6 mg PO BEDTIME PRN PRN Reason: Insomnia Last Admin: 05/03/20 20:20 Dose: 6 mg Documented by: Ondansetron HCl (Zofran) 4 mg IV Q4H PRN PRN Reason: Nausea/Vomiting Ondansetron HCl (Zofran Odt) 4 mg PO Q4H PRN PRN Reason: Nausea Last Admin: 05/01/20 08:28 Dose: 4 mg Documented by: Sodium Chloride (Saline Flush) 10 ml FLUSH ASDIRECTED PRN PRN Reason: Keep Vein Open Last Admin: 04/30/20 12:20 Dose: 10 ml Documented by: Zinc Sulfate (Zincate) 220 mg PO DAILY [facility] Last Admin: 05/04/20 09:35 Dose: 220 mg Documented by: Discontinued Medications Azithromycin (Zithromax) 250 mg PO ONETIME ONE Stop: 04/30/20 13:42 Last Admin: 04/30/20 14:27 Dose: 250 mg Documented by: Dexamethasone (Decadron) 6 mg IVPUSH ONETIME ONE Stop: 04/30/20 13:42 Last Admin: 04/30/20 14:24 Dose: 6 mg Documented by: Dexamethasone (Dexamethasone) 6 mg PO Q24H [facility] Stop: 05/09/20 13:01 Enoxaparin Sodium (Lovenox) 40 mg SUBCUT DAILY [facility] Last Admin: 05/01/20 08:27 Dose: 40 mg Documented by: Enoxaparin Sodium (Lovenox) 40 mg SUBCUT BID [facility] Remdesivir 200 mg/ Sodium (Chloride) 250 mls @ 250 mls/hr IV ONETIME ONE Stop: 04/30/20 13:33 Last Admin: 04/30/20 14:33 Dose: 250 mls/hr Documented by: Remdesivir 100 mg/ Sodium (Chloride) 100 mls @ 100 mls/hr IV Q24H [facility] Stop: 05/04/20 13:59 Last Admin: 05/04/20 12:29 Dose: 100 mls/hr Documented by: Ceftriaxone Sodium 2 gm/ (Sodium Chloride) 100 mls @ 200 mls/hr IV Q24H [facility] Stop: 05/04/20 18:29 Last Admin: 05/04/20 17:46 Dose: 200 mls/hr Documented by: Phenazopyridine HCl (Urinary Pain Relief) 95 mg PO TIDPC [facility] Stop: 05/03/20 13:01 Last Admin: 05/03/20 13:41 Dose: 95 mg Documented by: - Exam Quality Assessment: Supplemental Oxygen (5L ), DVT Prophylaxis. No: Urine Catheter General: Alert, Oriented, Cooperative, No Acute Distress HEENT: Pupils Equal, Pupils Reactive, Mucous Membr. Moist/[place] Neck: Supple, Trachea Midline Lungs: Normal Respiratory Effort, Decreased Breath Sounds. No: Rhonchi, Wheez ing Cardiovascular: Regular Rate, Regular Rhythm GI/Abdominal Exam: Normal Bowel Sounds, Soft, Non-Tender, No Distention (Female) Exam: Deferred Back Exam: Normal Inspection, Full Range of Motion Extremities: Normal Inspection, Normal Range of Motion, Non-Tender, No Pedal Edema, Normal Capillary Refill Skin: Warm, Dry, Intact Neurological: No New Focal Deficit Psy/Mental Status: Alert, Normal Affect, Normal Mood Sepsis Event Note - Evaluation Sepsis Screening Result: No Definite Risk - Focused Exam Vital Signs: Vital Signs Temp Pulse Resp BP Pulse Ox Pulse Ox 05/05/20 08:07 97.3 F 62 20 106/79 87 L 05/05/20 05:33 93 L 05/05/20 05:25 97.3 F 57 L 16 121/74 90 L 05/05/20 01:09 97.7 F 61 16 113/77 89 L - Problem List & Annotations (1) Pneumonia due to COVID-19 virus SNOMED Code(s): 239602149380839974 Code(s): U07.1 - COVID-19; J12.89 - OTHER VIRAL PNEUMONIA Status: Acute Priority: High Current Visit: Yes (2) COVID-19 SNOMED Code(s): 290610654 Code(s): U07.1 - COVID-19 Status: Acute Priority: High Current Visit: Yes (3) Hypoxia SNOMED Code(s): 960531781 Code(s): R09.02 - HYPOXEMIA Status: Acute Priority: High Current Visit: Yes (4) Weakness SNOMED Code(s): 71885218 Code(s): R53.1 - WEAKNESS Status: Acute Priority: High Current Visit: Yes (5) Diarrhea SNOMED Code(s): 22830867 Code(s): R19.7 - DIARRHEA, UNSPECIFIED Status: Acute Priority: Medium Current Visit: Yes Qualifiers: Diarrhea type: unspecified type Qualified Code(s): R19.7 - Diarrhea, unspecified - Problem List Review Problem List Initiated/Reviewed/Updated: Yes - My Orders Last 24 Hours: My Active Orders 05/06/20 05:11 BASIC METABOLIC PANEL,BMP [CHEM] AM CBC WITH AUTO DIFF [HEME] AM CRP [C-REACTIVE PROTEIN] [CHEM] AM MAGNESIUM [CHEM] AM 05/07/20 05:11 BASIC METABOLIC PANEL,BMP [CHEM] AM CBC WITH AUTO DIFF [HEME] AM CRP [C-REACTIVE PROTEIN] [CHEM] AM MAGNESIUM [CHEM] AM 05/08/20 05:11 BASIC METABOLIC PANEL,BMP [CHEM] AM CBC WITH AUTO DIFF [HEME] AM CRP [C-REACTIVE PROTEIN] [CHEM] AM MAGNESIUM [CHEM] AM - Plan Plan:: Assessment Acute: Covid-19 Infection Diarrhea 2/2 COVID-19 Viral pneumonitis Hypoxia on 5L [place] Elevated D-Dimer of 0.72 - stable Hyperglycemia - stable Elevated CRP of 27.1-->18.1-->8.7-->5.2-->3.6-->2.4 Hypoalbuminemia with Albumin of 2.6 Vitamin D Deficiency Anxiety Class II Obese Chronic: Impaired hearing Seasonal Allergies HTN HLD Urinary Incontinence vertigo GERD Eczema Constipation Obesity Plan * Continue current treatment * Completed Azithromycin, Rocephin, Dexamethasone and Remdesivir * Lovenox 40 mg subQ daily, * Encourage prone positioning * Received dexamethasone 6 mg daily outpatient * FiO2 to keep SPO2 between 88 and 94%. * IS and Acapella as directed with bedside pulmonary exercise * Albuterol HFA 2 puffs every 4 hours as needed * Ativan 1 mg p.o. every 2 hours as needed anxiety * Ambulate inside her room as much as she can * VTE prophylaxis with Lovenox * Continue zinc gluconate home dose * PT/OT for strengthening * CODE STATUS full code * LOS >96 Hrs due to need for continued COVID-19 treatment and hypoxia.
[2020-05-05] MEDS: Famotidine 20 MG Tab PO SCH ×2 (08:52→20:39)
[2020-05-05] MEDS: Cholecalciferol (Vitamin D3) 25 MCG Tab PO SCH (08:52)
[2020-05-05] MEDS: buPROPion 150 MG Tab.ER PO SCH (08:52)
[2020-05-05] MEDS: Ascorbic Acid 500 MG Tab PO SCH (08:52)
[2020-05-05] MEDS: Zinc Sulfate 220 MG Cap PO SCH (08:52)
[2020-05-05] MEDS: Enoxaparin 40 MG/0.4 ML Syringe SUBCUT SCH (08:53)
[2020-05-05] MEDS: Aspirin 81 MG Tab.EC PO SCH (08:53)
[2020-05-05] MEDS: Dexamethasone 4 MG Tab PO SCH (12:44)
--- NOTE | 2020-05-06 07:56 | PCM.PN ---
- General Info Date of Service: 05/06/20 Admission Dx/Problem (Free Text): Admission Diagnosis/Problem Admission Diagnosis/Problem Hypoxia Subjective Update: Nancy remains stable and on 5L of oxygen via NC. She continues to utilize her IS and acapella, prone when in bed, and ambulate around her room. Her las yesterday showed a very stable trend so labs today were not obtained. Will repeat labs tomorrow. RT working on weaning oxygen. Plan is to discharge once on 2-3L of oxygen. Otherwise she has completed COVID-19 treatment. Functional Status: Reports: Pain Controlled, Tolerating Diet, Ambulating, Urinating, Incentive Spirometry, Other (acapella ). Denies: New Symptoms - Review of Systems General: Reports: No Symptoms, Weakness, Fatigue. Denies: Fever, Malaise, Chills HEENT: Reports: No Symptoms. Denies: Headaches, Sore Throat Pulmonary: Reports: Shortness of Breath, Cough, Wheezing. Denies: Pleuritic Chest Pain, Sputum Cardiovascular: Reports: No Symptoms, Dyspnea on Exertion. Denies: Chest Pain, Palpitations, Lightheadedness Gastrointestinal: Reports: Diarrhea. Denies: Abdominal Pain, Constipation, Nausea, Vomiting Genitourinary: Reports: No Symptoms. Denies: Pain Musculoskeletal: Reports: No Symptoms Skin: Reports: No Symptoms. Denies: Cyanosis Neurological: Reports: No Symptoms. Denies: Confusion, Numbness, Tingling, Difficulty Walking, Gait Disturbance Psychiatric: Reports: No Symptoms - Patient Data Vitals - Most Recent: Last Vital Signs Temp 97.3 F 05/06/20 04:33 Pulse 74 05/06/20 04:33 Resp 16 05/06/20 04:33 BP 130/79 05/06/20 04:33 Pulse Ox 85 L 05/06/20 04:33 Weight - Most Recent: 186 lb 6.4 oz I&O - Last 24 Hours: Intake & Output 05/05/20 05/06/20 05/06/20 22:59 06:59 14:59 Intake Total 400 300 Balance 400 300 John Results Last 24 Hours: Microbiology 04/30/20 12:26 Aerobic Blood Culture - Preliminary Blood - Venous - Lab Draw NO GROWTH AFTER 5 DAYS Anaerobic Blood Culture - Preliminary NO GROWTH AFTER 5 DAYS 04/30/20 12:20 Aerobic Blood Culture - Preliminary Blood - Venous NO GROWTH AFTER 5 DAYS Anaerobic Blood Culture - Preliminary NO GROWTH AFTER 5 DAYS Med Orders - Current: Current Medications Acetaminophen (Tylenol) 650 mg PO Q4H PRN PRN Reason: Pain (Mild 1-3)/fever Last Admin: 05/04/20 20:20 Dose: 650 mg Documented by: Albuterol (Proventil Hfa) 0 gm INH Q4H PRN PRN Reason: Wheezing Last Admin: 04/30/20 17:47 Dose: 2 inhalation Documented by: Ascorbic Acid (Vitamin C) 1,000 mg PO DAILY [facility] Last Admin: 05/05/20 08:52 Dose: 1,000 mg Documented by: Aspirin (Halfprin) 81 mg PO DAILY [facility] Last Admin: 05/05/20 08:53 Dose: 81 mg Documented by: Bupropion HCl (Wellbutrin Xl) 150 mg PO DAILY [facility] Last Admin: 05/05/20 08:52 Dose: 150 mg Documented by: Cholecalciferol (Vitamin D3) 25 mcg PO DAILY [facility] Last Admin: 05/05/20 08:52 Dose: 25 mcg Documented by: Enoxaparin Sodium (Lovenox) 40 mg SUBCUT DAILY [facility] Last Admin: 05/05/20 08:53 Dose: 40 mg Documented by: Famotidine (Pepcid) 20 mg PO BID [facility] Last Admin: 05/05/20 20:39 Dose: 20 mg Documented by: Guaifenesin/Phenylephrine HCl (Robitussin Dm) 10 ml PO Q4H PRN PRN Reason: Cough Last Admin: 05/03/20 18:53 Dose: 10 ml Documented by: Lorazepam (Ativan) 1 mg PO Q4H PRN PRN Reason: Anxiety Melatonin (Melatonin) 6 mg PO BEDTIME PRN PRN Reason: Insomnia Last Admin: 05/03/20 20:20 Dose: 6 mg Documented by: Ondansetron HCl (Zofran) 4 mg IV Q4H PRN PRN Reason: Nausea/Vomiting Ondansetron HCl (Zofran Odt) 4 mg PO Q4H PRN PRN Reason: Nausea Last Admin: 05/01/20 08:28 Dose: 4 mg Documented by: Sodium Chloride (Saline Flush) 10 ml FLUSH ASDIRECTED PRN PRN Reason: Keep Vein Open Last Admin: 04/30/20 12:20 Dose: 10 ml Documented by: Zinc Sulfate (Zincate) 220 mg PO DAILY [facility] Last Admin: 05/05/20 08:52 Dose: 220 mg Documented by: Discontinued Medications Azithromycin (Zithromax) 250 mg PO ONETIME ONE Stop: 04/30/20 13:42 Last Admin: 04/30/20 14:27 Dose: 250 mg Documented by: Dexamethasone (Decadron) 6 mg IVPUSH ONETIME ONE Stop: 04/30/20 13:42 Last Admin: 04/30/20 14:24 Dose: 6 mg Documented by: Dexamethasone (Dexamethasone) 6 mg PO Q24H [facility] Stop: 05/09/20 13:01 Dexamethasone (Dexamethasone) 6 mg PO Q24H [facility] Stop: 05/05/20 13:01 Last Admin: 05/05/20 12:44 Dose: 6 mg Documented by: Enoxaparin Sodium (Lovenox) 40 mg SUBCUT DAILY [facility] Last Admin: 05/01/20 08:27 Dose: 40 mg Documented by: Enoxaparin Sodium (Lovenox) 40 mg SUBCUT BID [facility] Remdesivir 200 mg/ Sodium (Chloride) 250 mls @ 250 mls/hr IV ONETIME ONE Stop: 04/30/20 13:33 Last Admin: 04/30/20 14:33 Dose: 250 mls/hr Documented by: Remdesivir 100 mg/ Sodium (Chloride) 100 mls @ 100 mls/hr IV Q24H [facility] Stop: 05/04/20 13:59 Last Admin: 05/04/20 12:29 Dose: 100 mls/hr Documented by: Ceftriaxone Sodium 2 gm/ (Sodium Chloride) 100 mls @ 200 mls/hr IV Q24H [facility] Stop: 05/04/20 18:29 Last Admin: 05/04/20 17:46 Dose: 200 mls/hr Documented by: Phenazopyridine HCl (Urinary Pain Relief) 95 mg PO TIDPC [facility] Stop: 05/03/20 13:01 Last Admin: 05/03/20 13:41 Dose: 95 mg Documented by: - Exam Quality Assessment: Supplemental Oxygen (5L), DVT Prophylaxis General: Alert, Oriented, Cooperative, No Acute Distress HEENT: Pupils Equal, Pupils Reactive, Mucous Membr. Moist/[place] Neck: Supple, Trachea Midline Lungs: Normal Respiratory Effort, Decreased Breath Sounds, Wheezing Cardiovascular: Regular Rate, Regular Rhythm GI/Abdominal Exam: Normal Bowel Sounds, Soft, Non-Tender, No Organomegaly, No Distention, No Abnormal Bruit, No Mass, Pelvis Stable (Female) Exam: Deferred Back Exam: Normal Inspection, Full Range of Motion Extremities: Normal Inspection, Normal Range of Motion, Non-Tender, No Pedal Edema, Normal Capillary Refill Skin: Warm, Dry, Intact Neurological: No New Focal Deficit Psy/Mental Status: Alert, Normal Affect, Normal Mood Sepsis Event Note - Evaluation Sepsis Screening Result: No Definite Risk - Focused Exam Vital Signs: Vital Signs Temp Pulse Resp BP Pulse Ox 05/06/20 04:33 97.3 F 74 16 130/79 85 L 05/06/20 04:00 91 L 05/06/20 00:19 98.1 F 70 18 111/82 91 L 05/05/20 20:32 97.9 F 65 20 123/95 H 90 L - Problem List & Annotations (1) Pneumonia due to COVID-19 virus SNOMED Code(s): 795337820940169228 Code(s): U07.1 - COVID-19; J12.89 - OTHER VIRAL PNEUMONIA Status: Acute Priority: High Current Visit: Yes (2) COVID-19 SNOMED Code(s): 317327653 Code(s): U07.1 - COVID-19 Status: Acute Priority: High Current Visit: Yes (3) Hypoxia SNOMED Code(s): 026699092 Code(s): R09.02 - HYPOXEMIA Status: Acute Priority: High Current Visit: Yes (4) Weakness SNOMED Code(s): 83306301 Code(s): R53.1 - WEAKNESS Status: Acute Priority: High Current Visit: Yes (5) Diarrhea SNOMED Code(s): 67475333 Code(s): R19.7 - DIARRHEA, UNSPECIFIED Status: Acute Priority: Medium Current Visit: Yes Qualifiers: Diarrhea type: unspecified type Qualified Code(s): R19.7 - Diarrhea, unspecified - Problem List Review Problem List Initiated/Reviewed/Updated: Yes - My Orders Last 24 Hours: My Active Orders 05/06/20 05:11 BASIC METABOLIC PANEL,BMP [CHEM] AM CBC WITH AUTO DIFF [HEME] AM CRP [C-REACTIVE PROTEIN] [CHEM] AM MAGNESIUM [CHEM] AM 05/07/20 05:11 BASIC METABOLIC PANEL,BMP [CHEM] AM CBC WITH AUTO DIFF [HEME] AM CRP [C-REACTIVE PROTEIN] [CHEM] AM MAGNESIUM [CHEM] AM 05/08/20 05:11 BASIC METABOLIC PANEL,BMP [CHEM] AM CBC WITH AUTO DIFF [HEME] AM CRP [C-REACTIVE PROTEIN] [CHEM] AM MAGNESIUM [CHEM] AM - Plan Plan:: Assessment Acute: Covid-19 Infection Diarrhea 2/2 COVID-19 Viral pneumonitis Hypoxia on 5L [place] Elevated D-Dimer of 0.72 - stable Hyperglycemia - stable Elevated CRP of 27.1-->18.1-->8.7-->5.2-->3.6-->2.4 Hypoalbuminemia with Albumin of 2.6 Vitamin D Deficiency Anxiety Class II Obese Chronic: Impaired hearing Seasonal Allergies HTN HLD Urinary Incontinence vertigo GERD Eczema Constipation Obesity Plan * Continue current treatment * Completed Azithromycin, Rocephin, Dexamethasone and Remdesivir * Lovenox 40 mg subQ daily, * Encourage prone positioning * Received dexamethasone 6 mg daily outpatient * FiO2 to keep SPO2 between 88 and 94%. * IS and Acapella as directed with bedside pulmonary exercise * Albuterol HFA 2 puffs every 4 hours as needed * Ativan 1 mg p.o. every 2 hours as needed anxiety * Ambulate inside her room as much as she can * VTE prophylaxis with Lovenox * Continue zinc gluconate home dose * PT/OT for strengthening * CODE STATUS full code * LOS >96 Hrs due to need for continued COVID-19 treatment and hypoxia.
[2020-05-06] MEDS: Zinc Sulfate 220 MG Cap PO SCH (09:53)
[2020-05-06] MEDS: buPROPion 150 MG Tab.ER PO SCH (09:53)
[2020-05-06] MEDS: Enoxaparin 40 MG/0.4 ML Syringe SUBCUT SCH (09:53)
[2020-05-06] MEDS: Aspirin 81 MG Tab.EC PO SCH (09:54)
[2020-05-06] MEDS: Ascorbic Acid 500 MG Tab PO SCH (09:54)
[2020-05-06] MEDS: Cholecalciferol (Vitamin D3) 25 MCG Tab PO SCH (09:54)
[2020-05-06] MEDS: Famotidine 20 MG Tab PO SCH ×2 (09:54→20:54)
[2020-05-06] MEDS: Acetaminophen 325 MG Tab PO PRN (19:27)
--- NOTE | 2020-05-07 07:25 | PCM.PN ---
- General Info Date of Service: 05/07/20 Admission Dx/Problem (Free Text): Admission Diagnosis/Problem Admission Diagnosis/Problem Hypoxia Subjective Update: In to see Nancy. She is sitting up in bed. She notes she feels more fatigued today and says she takes longer for her saturations to recover after getting up to use the restroom. She is quite anxious and states she is nervous about eventually going home. We discussed how we will not send her home until we are confident she will do well and not need to return. Her CRP is improved. She is down to 3L from 5L yesterday. Hopeful for discharge in the next 24-48 hours pending continued improvement/stability. Functional Status: Reports: Pain Controlled, Tolerating Diet, Ambulating, Urinating, Incentive Spirometry, Other (Acapella ). Denies: New Symptoms - Review of Systems General: Reports: No Symptoms, Weakness (improving ). Denies: Fever, Fatigue, Malaise, Chills HEENT: Reports: No Symptoms. Denies: Headaches, Sore Throat Pulmonary: Reports: No Symptoms, Shortness of Breath, Cough. Denies: Sputum, Wheezing Cardiovascular: Reports: No Symptoms. Denies: Chest Pain, Palpitations, Dyspnea on Exertion Gastrointestinal: Reports: Diarrhea. Denies: Abdominal Pain, Constipation, Nausea, Vomiting Genitourinary: Reports: No Symptoms. Denies: Pain Musculoskeletal: Reports: No Symptoms Skin: Reports: No Symptoms. Denies: Cyanosis Neurological: Reports: No Symptoms. Denies: Confusion, Trouble Speaking, Difficulty Walking, Gait Disturbance Psychiatric: Reports: No Symptoms - Patient Data Vitals - Most Recent: Last Vital Signs Temp 97.9 F 05/07/20 03:59 Pulse 72 05/07/20 03:59 Resp 16 05/07/20 03:59 BP 101/65 05/07/20 03:59 Pulse Ox 98 05/07/20 06:30 Weight - Most Recent: 186 lb 8 oz I&O - Last 24 Hours: Intake & Output 05/06/20 05/07/20 05/07/20 22:59 06:59 14:59 Intake Total 1200 400 Balance 1200 400 Lab Results Last 24 Hours: Laboratory Results - last 24 hr 05/07/20 05/07/20 Range/Units 04:51 04:51 WBC 7.99 (3.98-10.04) K/mm3 RBC 4.11 (3.98-5.22) M/mm3 Hgb 11.8 (11.2-15.7) gm/dl Hct 37.0 (34.1-44.9) % MCV 90.0 (79.4-94.8) fl MCH 28.7 (25.6-32.2) pg MCHC 31.9 L (32.2-35.5) g/dl RDW Std Deviation 45.2 (36.4-46.3) fL Plt Count 394 H (182-369) K/mm3 MPV 9.7 (9.4-12.3) fl Neut % (Auto) 64.9 (34.0-71.1) % Lymph % (Auto) 28.3 (19.3-51.7) % [place] % (Auto) 4.5 L (4.7-12.5) % Eos % (Auto) 1.0 (0.7-5.8) Baso % (Auto) 0.0 L (0.1-1.2) % Neut # (Auto) 5.19 (1.56-6.13) K/mm3 Lymph # (Auto) 2.26 (1.18-3.74) K/mm3 [place] # (Auto) 0.36 (0.24-0.36) K/mm3 Eos # (Auto) 0.08 (0.04-0.36) K/mm3 Baso # (Auto) 0.00 L (0.01-0.08) K/mm3 Sodium 141 (136-145) mEq/L Potassium 4.0 (3.5-5.1) mEq/L Chloride 104 (98-107) mEq/L Carbon Dioxide 30 (21-32) mEq/L Anion Gap 11.0 (5-15) BUN 22 H (7-18) mg/dL Creatinine 1.0 (0.55-1.02) mg/dL Est Cr Clr Drug Dosing 45.14 mL/min Estimated GFR (MDRD) 57 (>60) mL/min BUN/Creatinine Ratio 22.0 H (14-18) Glucose 87 (74-106) mg/dL Calcium 8.4 L (8.5-10.1) mg/dL Magnesium 2.1 (1.8-2.4) mg/dl Total Bilirubin 0.4 (0.2-1.0) mg/dL AST 18 (15-37) U/L ALT 38 (14-59) U/L Alkaline Phosphatase 47 (46-116) U/L C-Reactive Protein 1.9 H* (<1.0) mg/dL Total Protein 6.3 L (6.4-8.2) g/dl Albumin 2.6 L (3.4-5.0) g/dl Globulin 3.7 gm/dL Albumin/Globulin Ratio 0.7 L (1-2) John Results Last 24 Hours: Microbiology 04/30/20 12:26 Aerobic Blood Culture - Preliminary Blood - Venous - Lab Draw NO GROWTH AFTER 6 DAYS Anaerobic Blood Culture - Preliminary NO GROWTH AFTER 6 DAYS 04/30/20 12:20 Aerobic Blood Culture - Preliminary Blood - Venous NO GROWTH AFTER 6 DAYS Anaerobic Blood Culture - Preliminary NO GROWTH AFTER 6 DAYS Med Orders - Current: Current Medications Acetaminophen (Tylenol) 650 mg PO Q4H PRN PRN Reason: Pain (Mild 1-3)/fever Last Admin: 05/06/20 19:27 Dose: 650 mg Documented by: Albuterol (Proventil Hfa) 0 gm INH Q4H PRN PRN Reason: Wheezing Last Admin: 04/30/20 17:47 Dose: 2 inhalation Documented by: Ascorbic Acid (Vitamin C) 1,000 mg PO DAILY [facility] Last Admin: 05/06/20 09:54 Dose: 1,000 mg Documented by: Aspirin (Halfprin) 81 mg PO DAILY [facility] Last Admin: 05/06/20 09:54 Dose: 81 mg Documented by: Bupropion HCl (Wellbutrin Xl) 150 mg PO DAILY [facility] Last Admin: 05/06/20 09:53 Dose: 150 mg Documented by: Cholecalciferol (Vitamin D3) 25 mcg PO DAILY [facility] Last Admin: 05/06/20 09:54 Dose: 25 mcg Documented by: Enoxaparin Sodium (Lovenox) 40 mg SUBCUT DAILY [facility] Last Admin: 05/06/20 09:53 Dose: 40 mg Documented by: Famotidine (Pepcid) 20 mg PO BID [facility] Last Admin: 05/06/20 20:54 Dose: 20 mg Documented by: Guaifenesin/Phenylephrine HCl (Robitussin Dm) 10 ml PO Q4H PRN PRN Reason: Cough Last Admin: 05/03/20 18:53 Dose: 10 ml Documented by: Lorazepam (Ativan) 1 mg PO Q4H PRN PRN Reason: Anxiety Melatonin (Melatonin) 6 mg PO BEDTIME PRN PRN Reason: Insomnia Last Admin: 05/03/20 20:20 Dose: 6 mg Documented by: Ondansetron HCl (Zofran) 4 mg IV Q4H PRN PRN Reason: Nausea/Vomiting Ondansetron HCl (Zofran Odt) 4 mg PO Q4H PRN PRN Reason: Nausea Last Admin: 05/01/20 08:28 Dose: 4 mg Documented by: Sodium Chloride (Saline Flush) 10 ml FLUSH ASDIRECTED PRN PRN Reason: Keep Vein Open Last Admin: 04/30/20 12:20 Dose: 10 ml Documented by: Zinc Sulfate (Zincate) 220 mg PO DAILY [facility] Last Admin: 05/06/20 09:53 Dose: 220 mg Documented by: Discontinued Medications Azithromycin (Zithromax) 250 mg PO ONETIME ONE Stop: 04/30/20 13:42 Last Admin: 04/30/20 14:27 Dose: 250 mg Documented by: Dexamethasone (Decadron) 6 mg IVPUSH ONETIME ONE Stop: 04/30/20 13:42 Last Admin: 04/30/20 14:24 Dose: 6 mg Documented by: Dexamethasone (Dexamethasone) 6 mg PO Q24H [facility] Stop: 05/09/20 13:01 Dexamethasone (Dexamethasone) 6 mg PO Q24H [facility] Stop: 05/05/20 13:01 Last Admin: 05/05/20 12:44 Dose: 6 mg Documented by: Enoxaparin Sodium (Lovenox) 40 mg SUBCUT DAILY [facility] Last Admin: 05/01/20 08:27 Dose: 40 mg Documented by: Enoxaparin Sodium (Lovenox) 40 mg SUBCUT BID [facility] Remdesivir 200 mg/ Sodium (Chloride) 250 mls @ 250 mls/hr IV ONETIME ONE Stop: 04/30/20 13:33 Last Admin: 04/30/20 14:33 Dose: 250 mls/hr Documented by: Remdesivir 100 mg/ Sodium (Chloride) 100 mls @ 100 mls/hr IV Q24H [facility] Stop: 05/04/20 13:59 Last Admin: 05/04/20 12:29 Dose: 100 mls/hr Documented by: Ceftriaxone Sodium 2 gm/ (Sodium Chloride) 100 mls @ 200 mls/hr IV Q24H [facility] Stop: 05/04/20 18:29 Last Admin: 05/04/20 17:46 Dose: 200 mls/hr Documented by: Phenazopyridine HCl (Urinary Pain Relief) 95 mg PO TIDPC [facility] Stop: 05/03/20 13:01 Last Admin: 05/03/20 13:41 Dose: 95 mg Documented by: - Exam Quality Assessment: Supplemental Oxygen (3L), DVT Prophylaxis General: Alert, Oriented, Cooperative, No Acute Distress HEENT: Pupils Equal, Pupils Reactive, Mucous Membr. Moist/[place] Lungs: Normal Respiratory Effort, Decreased Breath Sounds, Wheezing Cardiovascular: Regular Rate, Regular Rhythm GI/Abdominal Exam: Normal Bowel Sounds, Soft, Non-Tender, No Distention (Female) Exam: Deferred Back Exam: Normal Inspection, Full Range of Motion Extremities: Normal Inspection, Normal Range of Motion, Non-Tender, No Pedal Edema, Normal Capillary Refill Skin: Warm, Dry, Intact Neurological: No New Focal Deficit Psy/Mental Status: Alert, Normal Affect, Normal Mood Sepsis Event Note - Evaluation Sepsis Screening Result: No Definite Risk - Focused Exam Vital Signs: Vital Signs Temp Pulse Resp BP Pulse Ox Pulse Ox 05/07/20 06:30 98 05/07/20 03:59 97.9 F 72 16 101/65 90 L 05/06/20 23:21 66 114/75 93 L 05/06/20 23:16 64 88/62 L 91 L 05/06/20 23:15 97.9 F 67 14 89/58 L 90 L 05/06/20 20:09 97.9 F 66 14 108/55 L 92 L 05/06/20 19:32 94 L - Problem List & Annotations (1) Pneumonia due to COVID-19 virus SNOMED Code(s): 257833524698605804 Code(s): U07.1 - COVID-19; J12.89 - OTHER VIRAL PNEUMONIA Status: Acute Priority: High Current Visit: Yes (2) COVID-19 SNOMED Code(s): 855614517 Code(s): U07.1 - COVID-19 Status: Acute Priority: High Current Visit: Yes (3) Hypoxia SNOMED Code(s): 883877448 Code(s): R09.02 - HYPOXEMIA Status: Acute Priority: High Current Visit: Yes (4) Weakness SNOMED Code(s): 29297607 Code(s): R53.1 - WEAKNESS Status: Acute Priority: High Current Visit: Yes (5) Diarrhea SNOMED Code(s): 84335074 Code(s): R19.7 - DIARRHEA, UNSPECIFIED Status: Acute Priority: Medium Current Visit: Yes Qualifiers: Diarrhea type: unspecified type Qualified Code(s): R19.7 - Diarrhea, unspecified - Problem List Review Problem List Initiated/Reviewed/Updated: Yes - My Orders Last 24 Hours: My Active Orders 05/07/20 04:51 PROCALCITONIN [REF] Routine - Plan Plan:: Assessment Acute: Covid-19 Infection Diarrhea 2/2 COVID-19 Viral pneumonitis Hypoxia on 5L NC Elevated D-Dimer of 0.72 - stable Hyperglycemia - stable Elevated CRP of 27.1-->18.1-->8.7-->5.2-->3.6-->2.4-->1.9 Hypoalbuminemia with Albumin of 2.6 Vitamin D Deficiency Anxiety Class II Obese Chronic: Impaired hearing Seasonal Allergies HTN HLD Urinary Incontinence vertigo GERD Eczema Constipation Obesity Plan * Continue current treatment * Completed Azithromycin, Rocephin, Dexamethasone and Remdesivir * Lovenox 40 mg subQ daily, * Encourage prone positioning * Received dexamethasone 6 mg daily outpatient * FiO2 to keep SPO2 between 88 and 94%. * IS and Acapella as directed with bedside pulmonary exercise * Albuterol HFA 2 puffs every 4 hours as needed * Ativan 1 mg p.o. every 2 hours as needed anxiety * Ambulate inside her room as much as she can * VTE prophylaxis with Lovenox * Continue zinc gluconate home dose * PT/OT for strengthening * CODE STATUS full code * LOS >96 Hrs due to need for continued COVID-19 treatment and hypoxia. * Hopeful for discharge in next 24-48 hours pending continued stability/improvement with oxygen saturations.
[2020-05-07] MEDS: Enoxaparin 40 MG/0.4 ML Syringe SUBCUT SCH (08:08)
[2020-05-07] MEDS: Cholecalciferol (Vitamin D3) 25 MCG Tab PO SCH (08:09)
[2020-05-07] MEDS: Ascorbic Acid 500 MG Tab PO SCH (08:09)
[2020-05-07] MEDS: buPROPion 150 MG Tab.ER PO SCH (08:09)
[2020-05-07] MEDS: Famotidine 20 MG Tab PO SCH ×2 (08:10→20:30)
[2020-05-07] MEDS: Aspirin 81 MG Tab.EC PO SCH (08:10)
[2020-05-07] MEDS: Zinc Sulfate 220 MG Cap PO SCH (08:10)
[2020-05-07] MEDS: Acetaminophen 325 MG Tab PO PRN ×2 (10:02→20:30)
[2020-05-08] MEDS: Cholecalciferol (Vitamin D3) 25 MCG Tab PO SCH (10:17)
[2020-05-08] MEDS: buPROPion 150 MG Tab.ER PO SCH (10:17)
[2020-05-08] MEDS: Famotidine 20 MG Tab PO SCH (10:17)
[2020-05-08] MEDS: Zinc Sulfate 220 MG Cap PO SCH (10:17)
[2020-05-08] MEDS: Ascorbic Acid 500 MG Tab PO SCH (10:17)
[2020-05-08] MEDS: Aspirin 81 MG Tab.EC PO SCH (10:18)
[2020-05-08] MEDS: Enoxaparin 40 MG/0.4 ML Syringe SUBCUT SCH (10:18)
--- NOTE | 2020-05-08 11:27 | PCM.DCSUM1 ---
Discharge Summary - Hospital Course HPI Initial Comments: 59-year-old female who first developed symptoms of shortness of breath, cough, and headaches on April 18, 2020 and diagnosed after a nasal swab on April 20 with COVID-19 has had progressive shortness of breath, fevers as high as 104, chills, loss of sense of smell and taste. She was diagnosed 5 days ago with pneumonia and placed on a Z-Rodriguez and steroids. Patient returned to her primary care provider Mónica Gary today and oxygen saturations were 75% on room air. She was placed on 4 L/min of oxygen via nasal cannula and saturations increased to the low to mid 90s. Patient is feeling better but is very anxious. Patient has a history of anxiety disorder. She stopped smoking 5 years ago. She smoked for several years. Assessment 59-year-old ex smoker with COVID-19 pneumonia * Symptoms started on April 18, 2012 days prior to admission * Received 5 days of Zithromax and dexamethasone prior to admission * Patient requiring 4 L of nasal cannula to keep her oxygen saturations in the low to mid 90s. * Chest x-ray shows bilateral infiltrates * Started on remdesivir today in the ED * She is too far out to benefit from convalescent plasma. * She stopped smoking 5 years ago but states that she smoked for many years prio r. * Lab work showed pertinent positives and negatives of WBC 9.95 with only 1% bands, D-dimer 1.15, troponin I less than 0.017, LDH 486, BNP 304, ferritin 496, CRP 27 Renal insufficiency unknown chronic versus acute * GFR 57, creatinine 1.0, BUN 16 * Review of old records shows 2 separate occasions here GFR at 57 in 2016 and greater than 60 on 2017 Anxiety * She is on Wellbutrin as an outpatient * Symptoms of anxiety will likely worsen with dexamethasone and due to hospitalization. * She will likely need some anxiolytic to help with her anxiety especially initially. Plan * Admit to medical floor on continuous pulse ox * Encourage prone positioning * Continue remdesivir 100 mg daily for 4 additional days * Continue dexamethasone 6 mg daily for 5 additional days * FiO2 to keep SPO2 between 88 and 94%. * I-S and Acapella * Albuterol HFA 2 puffs every 4 hours as needed * Follow Covid related labs, follow kidney function * Ativan 1 mg p.o. every 2 hours as needed anxiety * Continue Wellbutrin * Aspirin 81 mg daily * Pepcid 20 mg twice daily * VTE prophylaxis with Lovenox * CODE STATUS full code Diagnosis: Stroke: No - Discharge Data Discharge Date: 05/08/20 Discharge Disposition: Home, Self-Care 01 Condition: Good - Referral to Home Health Primary Care Physician: Mónica Gary [employer] - Discharge Diagnosis/Problem(s) (1) Pneumonia due to COVID-19 virus SNOMED Code(s): 254931205918565136 ICD Code: U07.1 - COVID-19; J12.89 - OTHER VIRAL PNEUMONIA Status: Acute Priority: High (2) COVID-19 SNOMED Code(s): 072252009 ICD Code: U07.1 - COVID-19 Status: Acute Priority: High - Patient Summary/Data Consults: Consultations 04/30/20 16:52 Respiratory Care Assess and Treatment [CONS] Routine 05/03/20 13:04 Consult to Occupational Therapy [OT Evaluation and Treatment] [CONS] Routine PT Evaluation and Treatment [CONS] Routine Hospital Course: Patient was admitted and started on of COVID-19 protocol remdesivir, dexamethasone, I-S and Acapella, oxygen, encourage proning, Pepcid, and Lovenox. Patient completed treatment and her worse oxygenation required 5 L/min nasal cannula. Patient was slowly titrated down and was discharged on 2 L nasal cannula. She was also treated with 5 days of ceftriaxone and only 1 day of azithromycin because of reaction. - Patient Instructions Diet: Usual Diet as Tolerated Activity: As Tolerated Driving: Do Not Drive Showering/Bathing: May Shower Other/Special Instructions: Return to hospital if your oxygen saturations start dropping especially below 90%. Follow-up with your primary care provider in 1 to 2 weeks. Sooner if needed. - Discharge Plan *PRESCRIPTION DRUG MONITORING PROGRAM REVIEWED*: No *COPY OF PRESCRIPTION DRUG MONITORING REPORT IN PATIENT KASANDRA: No Prescriptions/Med Rec: Famotidine [Acid Controller] 20 mg PO BID #60 tablet Home Medications: Home Meds Cholecalciferol (Vitamin D3) [Vitamin D3] 1,000 unit PO DAILY 08/25/16 [History] Ascorbic Acid/Ascorbate Sodium [Vitamin C 500 mg Wafer] 1,000 mg PO DAILY 04/30/20 [History] Calcium Carbonate [Calcium] 500 mg PO DAILY 04/30/20 [History] Ondansetron [Zofran ODT] 4 mg PO Q4H PRN 04/30/20 [History] Zinc Gluconate [Zinc] 50 mg PO DAILY 04/30/20 [History] buPROPion HCL [Bupropion Xl] 150 mg PO DAILY 04/30/20 [History] Acetaminophen [Tylenol] 650 mg PO Q4H PRN tablet 05/08/20 [Rx] Aspirin [Halfprin] 81 mg PO DAILY tab.ec 05/08/20 [Rx] Famotidine [Acid Controller] 20 mg PO BID #60 tablet 05/08/20 [Rx] Oxygen Therapy Mode: Nasal Cannula Oxygen Flow Rate (L/min): 2 Maintain SpO2% greater than: 90 Patient Handouts: Sepsis, Diagnosis, Adult, COVID-19: How to Protect Yourself and Others - [facility], Prevent the Spread of COVID-19 if You Are Sick - [facility] Referrals: Mónica Gary [employer] [Primary Care Provider] - (Please call clinic sunday to schedule a follow up appointment with primary care provider in the next one to two weeks. ) - Discharge Summary/Plan Comment DC Time >30 min.: Yes - General Info Date of Service: 05/10/20 Admission Dx/Problem (Free Text: Admission Diagnosis/Problem Admission Diagnosis/Problem Hypoxia Subjective Update: Patient is doing well on 2 L without any complaints. Appetite is good. Functional Status: Reports: Pain Controlled - Review of Systems General: Reports: No Symptoms HEENT: Reports: No Symptoms Pulmonary: Reports: No Symptoms Cardiovascular: Reports: No Symptoms Gastrointestinal: Reports: No Symptoms Musculoskeletal: Reports: No Symptoms - Patient Data Vitals - Most Recent: Last Vital Signs Temp 97.7 F 05/08/20 08:00 Pulse 64 05/08/20 08:00 Resp 20 05/08/20 08:00 BP 96/51 L 05/08/20 08:00 Pulse Ox 93 L 05/08/20 08:00 Weight - Most Recent: 186 lb I&O - Last 24 hours: Intake & Output 05/07/20 05/08/20 05/08/20 22:59 06:59 14:59 Intake Total 1440 700 Balance 1440 700 Lab Results - Last 24 hrs: Laboratory Results - last 24 hr 05/07/20 Range/Units 04:51 Procalcitonin <0.05 (<0.10) ng/mL ASAD Results - Last 24 hrs: Microbiology 04/30/20 12:26 Aerobic Blood Culture - Final Blood - Venous - Lab Draw NO GROWTH AFTER 7 DAYS Anaerobic Blood Culture - Final NO GROWTH AFTER 7 DAYS 04/30/20 12:20 Aerobic Blood Culture - Final Blood - Venous NO GROWTH AFTER 7 DAYS Anaerobic Blood Culture - Final NO GROWTH AFTER 7 DAYS Med Orders - Current: Current Medications Acetaminophen (Tylenol) 650 mg PO Q4H PRN PRN Reason: Pain (Mild 1-3)/fever Last Admin: 05/07/20 20:30 Dose: 650 mg Documented by: Albuterol (Proventil Hfa) 0 gm INH Q4H PRN PRN Reason: Wheezing Last Admin: 04/30/20 17:47 Dose: 2 inhalation Documented by: Ascorbic Acid (Vitamin C) 1,000 mg PO DAILY [facility] Last Admin: 05/08/20 10:17 Dose: 1,000 mg Documented by: Aspirin (Halfprin) 81 mg PO DAILY [facility] Last Admin: 05/08/20 10:18 Dose: 81 mg Documented by: Bupropion HCl (Wellbutrin Xl) 150 mg PO DAILY [facility] Last Admin: 05/08/20 10:17 Dose: 150 mg Documented by: Cholecalciferol (Vitamin D3) 25 mcg PO DAILY [facility] Last Admin: 05/08/20 10:17 Dose: 25 mcg Documented by: Enoxaparin Sodium (Lovenox) 40 mg SUBCUT DAILY [facility] Last Admin: 05/08/20 10:18 Dose: 40 mg Documented by: Famotidine (Pepcid) 20 mg PO BID [facility] Last Admin: 05/08/20 10:17 Dose: 20 mg Documented by: Guaifenesin/Phenylephrine HCl (Robitussin Dm) 10 ml PO Q4H PRN PRN Reason: Cough Last Admin: 05/03/20 18:53 Dose: 10 ml Documented by: Lorazepam (Ativan) 1 mg PO Q4H PRN PRN Reason: Anxiety Melatonin (Melatonin) 6 mg PO BEDTIME PRN PRN Reason: Insomnia Last Admin: 05/03/20 20:20 Dose: 6 mg Documented by: Ondansetron HCl (Zofran) 4 mg IV Q4H PRN PRN Reason: Nausea/Vomiting Ondansetron HCl (Zofran Odt) 4 mg PO Q4H PRN PRN Reason: Nausea Last Admin: 05/01/20 08:28 Dose: 4 mg Documented by: Sodium Chloride (Saline Flush) 10 ml FLUSH ASDIRECTED PRN PRN Reason: Keep Vein Open Last Admin: 04/30/20 12:20 Dose: 10 ml Documented by: Zinc Sulfate (Zincate) 220 mg PO DAILY [facility] Last Admin: 05/08/20 10:17 Dose: 220 mg Documented by: Discontinued Medications Azithromycin (Zithromax) 250 mg PO ONETIME ONE Stop: 04/30/20 13:42 Last Admin: 04/30/20 14:27 Dose: 250 mg Documented by: Dexamethasone (Decadron) 6 mg IVPUSH ONETIME ONE Stop: 04/30/20 13:42 Last Admin: 04/30/20 14:24 Dose: 6 mg Documented by: Dexamethasone (Dexamethasone) 6 mg PO Q24H [facility] Stop: 05/09/20 13:01 Dexamethasone (Dexamethasone) 6 mg PO Q24H [facility] Stop: 05/05/20 13:01 Last Admin: 05/05/20 12:44 Dose: 6 mg Documented by: Enoxaparin Sodium (Lovenox) 40 mg SUBCUT DAILY [facility] Last Admin: 05/01/20 08:27 Dose: 40 mg Documented by: Enoxaparin Sodium (Lovenox) 40 mg SUBCUT BID [facility] Remdesivir 200 mg/ Sodium (Chloride) 250 mls @ 250 mls/hr IV ONETIME ONE Stop: 04/30/20 13:33 Last Admin: 04/30/20 14:33 Dose: 250 mls/hr Documented by: Remdesivir 100 mg/ Sodium (Chloride) 100 mls @ 100 mls/hr IV Q24H [facility] Stop: 05/04/20 13:59 Last Admin: 05/04/20 12:29 Dose: 100 mls/hr Documented by: Ceftriaxone Sodium 2 gm/ (Sodium Chloride) 100 mls @ 200 mls/hr IV Q24H [facility] Stop: 05/04/20 18:29 Last Admin: 05/04/20 17:46 Dose: 200 mls/hr Documented by: Phenazopyridine HCl (Urinary Pain Relief) 95 mg PO TIDPC [facility] Stop: 05/03/20 13:01 Last Admin: 05/03/20 13:41 Dose: 95 mg Documented by: - Exam Quality Assessment: Reports: Supplemental Oxygen General: Reports: Alert, Oriented HEENT: Reports: Pupils Equal, Mucous Membr. Moist/[place] Neck: Reports: Supple Lungs: Reports: Normal Respiratory Effort, Rales (Mild bibasilar) Cardiovascular: Reports: Regular Rate, Regular Rhythm GI/Abdominal Exam: Normal Bowel Sounds, Soft, Non-Tender, No Organomegaly, No Distention, No Abnormal Bruit, No Mass Extremities: Normal Inspection, Normal Range of Motion, Non-Tender, No Pedal Edema, Normal Capillary Refill Skin: Reports: Warm, Dry, Intact Psy/Mental Status: Reports: Alert, Normal Affect, Normal Mood
[2020-05-08 20:00] VITALS: BP 99/53; PULSE 89
== END 2020-05-08 14:05 | disposition home or self-care (01) | DRG 137 ==
LOC: SUPCPDRO 11:25 → JD.ED 11:25 → JD.MS 13:54
PROVIDERS: ADMIT Family Medicine; ATTEND Family Medicine
PROC: 8E0ZXY6 Isolation (ICD-10-PCS; principal; 2020-04-30)
PROC: XW033E5 Introduction of Remdesivir Anti-infective into Peripheral Vein, Percutaneous Approach, New Technology Group 5 (ICD-10-PCS; 2020-04-30)
DX: U07.1 COVID-19 (principal); J12.89 Other viral pneumonia; F41.9 Anxiety disorder, unspecified; Z79.899 Other long term (current) drug therapy; K21.9 Gastro-esophageal reflux disease without esophagitis; R33.9 Retention of urine, unspecified; M19.90 Unspecified osteoarthritis, unspecified site; E66.9 Obesity, unspecified; Z96.619 Presence of unspecified artificial shoulder joint; R09.02 Hypoxemia; R73.9 Hyperglycemia, unspecified; E55.9 Vitamin D deficiency, unspecified; E88.09 Other disorders of plasma-protein metabolism, not elsewhere classified; H91.90 Unspecified hearing loss, unspecified ear; K59.00 Constipation, unspecified; N17.9 Acute kidney failure, unspecified; I12.9 Hypertensive chronic kidney disease with stage 1 through stage 4 chronic kidney disease, or unspecified chronic kidney disease; N18.9 Chronic kidney disease, unspecified; J30.2 Other seasonal allergic rhinitis; Z87.891 Personal history of nicotine dependence; Z99.81 Dependence on supplemental oxygen; Z88.0 Allergy status to penicillin; Z88.5 Allergy status to narcotic agent; Z91.018 Allergy to other foods; Z91.040 Latex allergy status; H40.9 Unspecified glaucoma; Z87.440 Personal history of urinary (tract) infections; Z68.35 Body mass index [BMI] 35.0-35.9, adult
CPT/HCPCS: 36415; 71045; 71045-26; 80048; 80053; 81003; 82306; 82728; 83605; 83615; 83735; 83880; 84100; 84145; 84484; 85007; 85025; 85027; 85379; 85610; 85730; 86140; 87040; 87804; 93005; 93010; 94640; 94667; 94668; 94761; 94762; 96365; 97110-GP; 97116-GP; 97162-GP; 97165-GO; 97530-GP; 97535-GO; 99284; 99285-25; A9270-GY; J0696; J1100; J1650; J7050; J8540